=== PATIENT | female | born 1985 | race Caucasian/White ===

== ENCOUNTER 2017-02-09 18:57 | Inpatient (IN) | payer MEDICAID ==
[~2017-02-09] VITALS: Ht 167.6 cm; Wt 54.9 kg
[2017-02-09 19:06] VITALS: BP 103/63
--- NOTE | 2017-02-09 19:10 | NUR ---
31/F BIBA C/O DYSPNEA X 2DAYS AND ALOC AT HOME X 2 HOURS AGO. PER EMS, BS READ HI X2 ON THE FIELD. ACCUCHECK DONE TOO HIGH TO READ, ER MD CANELA MADE AWARE. PT PRESENT WITH KUSSMAULS RESPIRATION, SHALLOW AND LABORED 24RR, SATS 100% ON 4LPMNC, ALL LUNG SOUNDS CLEAR CBTA. 106 SINUS TACHY, EKG DONE. PT UNABLE TO COMMUNICATE, AROUSAL AND EYE OPENING ON PAIN STIMULI. PT PLACED ON BEDSIDE MONITOR AND PULSE OX. UNABLE TO GET FULL HISTORY AT THIS TIME PMH: DIABETES
[2017-02-09] MEDS ORDERED: NACL 0.9% 2,000 ML IV SCH (20:02)
[2017-02-09] MEDS ORDERED: INSULIN HUMAN REGULAR 100 UNITS in NACL 0.9% 100 ML IV ONE (20:35)
[2017-02-09] MEDS ORDERED: SODIUM BICARBONATE 8.4% PFS 50 MEQ/50 ML SYR IVP ONE (20:35)
[2017-02-09 20:41] LABS: BASOPHILS # (AUTO) 0.1 K/uL (0.00-0.22); BASOPHILS % (AUTO) 0.5 % (0.0-2.0); EOSINOPHILS % (AUTO) 0.1 % (0.0-4.0); HEMATOCRIT 39.5 % (36-48); HEMOGLOBIN 12.8 g/dL (12.0-16.0); LYMPHOCYTES # (AUTO) 0.5 K/uL (2.5-16.5); LYMPHOCYTES % (AUTO) 4.5 % (20.5-51.1); MEAN CORPUSCULAR HEMOGLOBIN 32 pg (27-31); MEAN CORPUSCULAR HGB CONC 32 g/dL (33-37); MEAN CORPUSCULAR VOLUME 97 fL (80-94); MONOCYTES % (AUTO) 7.9 % (1.7-9.3); NEUTROPHILS # (AUTO) 10.6 K/uL (1.8-7.7); PLATELET COUNT (AUTO) 183 K/uL (140-450); RED BLOOD CELL COUNT(AUTO) 4.06 MIL/uL (4.20-5.40); RED CELL DISTRIBUTION WIDTH 13.6 % (11.6-13.7); WHITE BLOOD COUNT (AUTO) 12.2 K/uL (4.8-10.8)
[2017-02-09 20:44] LABS: APPEARANCE,URINE CLEAR (CLEAR); BILIRUBIN,URINE NEGATIVE (NEGATIVE); BLOOD, URINE TRACE-L (NEGATIVE); COLOR,URINE YELLOW (YELLOW); LEUKOCYTE ESTERASE ,URINE NEGATIVE (NEGATIVE); NITRITE, URINE NEGATIVE (NEGATIVE); UGLUCOSE 3+ (NEGATIVE)
[2017-02-09 20:50] LABS: RBC,URINE 3-10 (FEW) /HPF (0-5); WBC,URINE 0-5 (RARE) /HPF (0-5)
[2017-02-09 21:01] LABS: ALBUMIN 2.5 g/dL (3.4-5.0); CREATININE 1.2 mg/dL (0.6-1.3); POTASSIUM 4.7 mmol/L (3.5-5.1); TOTAL BILIRUBIN 0.4 mg/dL (0.0-1.0)
[2017-02-09 21:04] LABS: PROTHROMBIN TIME 10.3 secs (10.8-13.4)
[2017-02-09] MEDS ORDERED: INSU100I7 SQ (21:04)
[2017-02-09] MEDS ORDERED: [UNRECOGNIZED DRUG - CODE] PO (21:04)
--- NOTE | 2017-02-09 21:26 | NUR ---
PT STILL NOTED WITH KUSSMAULS RESPIRATIONS, ON 4LPMNC SATS 100%, 96HR. ER MD CANELA MADE AWARE. PT MADE COMFORTBLE, STILL WOULD NOT VERBALLY RESPOND TO QUESTIONS. NO S/SX OF PAIN AT THIS TIME. INSULIN DRIP STARTED,SEE RADU Addendum: 02/09/17 at 2132 by TANJA PER MD CANELA, ACCUCHECK EVERY HOUR AFTER STARTING INSULIN DRIP
[2017-02-09 21:28] LABS: CARBON DIOXIDE 4.7 mmol/L (21-32)
[2017-02-09 21:31] LABS: ACETONE, SERUM SMALL (NEGATIVE)
[2017-02-09] MEDS ORDERED: ONDANSETRON 4 MG/2 ML VIAL IVP PRN (21:50)
[2017-02-09] MEDS ORDERED: HYDROcodone/APAP 7.5/325 MG 1 TAB PO PRN (21:50)
[2017-02-09] MEDS ORDERED: NACL 0.9% 1,000 ML IV SCH ×2 (21:50→22:00)
[2017-02-09] MEDS ORDERED: DEXTROSE 50% 50 ML SYR IVP PRN (22:00)
[2017-02-09] MEDS ORDERED: INSULIN HUMAN REGULAR 100 UNITS in NACL 0.9% 100 ML IV SCH (22:15)
--- NOTE | 2017-02-09 22:15 | NUR ---
APatient will be admitted to care of JONATAN. Admited to ICU. Will go to BED 5. Belongings list completed. BEDSIDE Report to CLARIZE RN. INSULIN DRIP INFUSING AT 5UNITS/HR PER PROTOCOL UPON TRANSFER, PT STABLE TO TRANSFER TO ICU. TRASPORTED VIA GURNEY WITH TOOLING ENGINEERING TECH AND PULSE OX
--- NOTE | 2017-02-09 22:30 | NUR ---
RECEIVED REPORT FROM ER NURSE EMILIE, ACCOMPANIED BY RN AND EMT VIA YULIA. ATTACHED TO O2 @ 3LPM VIA NASAL CANNULA, PT IS DROWSY. IV AT LEFT HAND 18G , INFUSING WELL. ON INSULIN DRIP. BED IN LOW POSITION, SAFETY MEASURE ENSURE. REDNESS NOTED AT PERINEAL AND TANYA RECTAL AREA. WILL CONTINUE TO MONITOR.
[2017-02-09 22:33] VITALS: BP 60/41
[2017-02-09] MEDS ORDERED: HYDRAGUARD CREAM TP SCH (22:45)
[2017-02-09] MEDS: BLOOD GLUCOSE MONITORING 1 DEV DEV FS SCH ×2 (22:46→22:56)
[2017-02-09] MEDS ORDERED: LORazepam 1 MG TAB PO PRN (22:55)
[2017-02-09] MEDS ORDERED: DIAZEPAM PFS 10 MG/2 ML SYR IVP SCH (23:00)
[2017-02-09] MEDS ORDERED: ALBUTEROL SULFATE/IPRATROPIU 3 ML SOL IH PRN (23:20)
[2017-02-09 23:21] VITALS: BP 100/54
[2017-02-09 23:25] VITALS: BP 97/63
[2017-02-09] MEDS ORDERED: DIAZEPAM PFS 10 MG/2 ML SYR ONE (23:36)
[2017-02-09 23:37] LABS: BARBITURATE, URINE NEG. ng/ml (NEG <=200); BENZODIAZEPINE, URINE NEG. ng/mL (NEG <=200); CANNABINOID, URINE NEG. ng/mL (NEG <=50); COCAINE, URINE NEG. ng/mL (NEG <=300); OPIATE, URINE NEG. ng/mL (NEG <=2000); PHENCYCLIDINE SCREEN,URINE NEG. ng/mL (NEG <=25)
[2017-02-09 23:45] LABS: CHOL/HDL RATIO 8.3 (1-4.5); FREE T4 (FREE THYROXINE) 0.81 ng/dL (0.76-1.46); THYROID STIMULATING HORMONE 2.97 uIU/mL (0.34-3.74)
--- NOTE | 2017-02-09 23:45 | NUR ---
DR. MARCELINO AT BEDSIDE WITH DR. VEGA. [facility] AT BEDSIDE. PT FOR CENTRAL LINE INSERTION. CONSENT SIGNED.
--- NOTE | 2017-02-09 23:54 | NUR ---
2300 PT HAVING SHORTNESS OF BREATH AND PLACED PT ON BIPAP 12/6 RR 14 30%. LOWERED BIPAP TO IPAP 8 EPAP 4 RR 12 DUE TO HIGH TIDAL VOLUMES. PT SEEMS LESS SOB.
--- NOTE | 2017-02-09 23:55 | NUR ---
ONGOING CENTRAL LINE INSERTION BY DR. MARCELINO. PT ON STILL ON BIPAP.
[2017-02-10] VITALS (13 sets, daily range): BP systolic 82–140; BP diastolic 47–69
--- NOTE | 2017-02-10 00:30 | NUR ---
CENTRAL LINE PLACEMENT WAS UNSUCCESSFUL. PT ON STABLE CONDITION. WILL CONTINUE TO MONITOR.
--- NOTE | 2017-02-10 00:30 | NUR ---
CENTRAL LINE INSERTION WAS UNSUCCESSFUL. HEPARIN FLUSH NOT GIVEN. WASTED.
[2017-02-10] MEDS: BLOOD GLUCOSE MONITORING 1 DEV DEV FS SCH ×24 (00:40→23:20)
--- NOTE | 2017-02-10 00:45 | NUR ---
ABG DRAWN AT [address] PERKINS (RESIDENT) WITH HCO3 4.8, NO NEW ORDER GIVEN.
[2017-02-10] MEDS ORDERED: NACL 0.9% 1,000 ML IV ONE (01:10)
[2017-02-10 01:11] LABS: MAGNESIUM 1.8 mg/dL (1.8-2.4); PHOSPHORUS 3.1 mg/dL (2.5-4.9)
[2017-02-10 01:14] LABS: ANION GAP 28.1 (8-16); CREATININE 0.9 mg/dL (0.6-1.3); POTASSIUM 3.6 mmol/L (3.5-5.1)
[2017-02-10 01:15] LABS: CARBON DIOXIDE 7.5 mmol/L (21-32)
[2017-02-10] MEDS ORDERED: MECLIZINE 25 MG TAB PO PRN (02:10)
--- NOTE | 2017-02-10 02:40 | NUR ---
RN TOOK PATIENT OF BIPAP AND PLACED PT ON 2LNC. SATS 100%.
--- NOTE | 2017-02-10 03:00 | NUR ---
PT IS MORE ALERT AND AWAKE AT THIS TIME. DR. MARCELINO AT BEDSIDE WITH THE PATIENT. NO LONGER ON BIPAP. O2 @ 2LPM VIA NASAL CANNULA. WILL CONTINUE TO MONITOR.
--- NOTE | 2017-02-10 05:00 | NUR ---
PT TAKEN TO CT SCAN WITH FIELD CREW CHIEF ACCOMPANIED BY RNS AND CUSTOMER SERVICE TECHNICIAN. PT ON STABLE CONDITION.
--- NOTE | 2017-02-10 05:15 | NUR ---
DR. MARCELINO AWARE OF ABG RESULT. NO ORDERS MADE
[2017-02-10 05:25] LABS: BASOPHILS # (AUTO) 0.1 K/uL (0.00-0.22); BASOPHILS % (AUTO) 0.8 % (0.0-2.0); EOSINOPHILS # (AUTO) 0.1 K/uL (0-0.4); EOSINOPHILS % (AUTO) 0.8 % (0.0-4.0); HEMATOCRIT 34.9 % (36-48); HEMOGLOBIN 11.9 g/dL (12.0-16.0); LYMPHOCYTES # (AUTO) 0.7 K/uL (2.5-16.5); LYMPHOCYTES % (AUTO) 6.2 % (20.5-51.1); MEAN CORPUSCULAR HEMOGLOBIN 32 pg (27-31); MEAN CORPUSCULAR HGB CONC 34 g/dL (33-37); MEAN CORPUSCULAR VOLUME 93 fL (80-94); MONOCYTES # (AUTO) 0.6 K/uL (0.8-1.0); MONOCYTES % (AUTO) 5.3 % (1.7-9.3); NEUTROPHILS # (AUTO) 9.2 K/uL (1.8-7.7); NEUTROPHILS % (AUTO) 86.9 % (42.2-75.2); PLATELET COUNT (AUTO) 198 K/uL (140-450); RED BLOOD CELL COUNT(AUTO) 3.75 MIL/uL (4.20-5.40)
[2017-02-10] MEDS: DEXT 5% / NACL 0.45% 1,000 ML IV SCH ×3 (05:33→20:21)
--- NOTE | 2017-02-10 05:36 | NUR ---
RECEIVED CT HEAD RESULT VIA FAX, NO ACUTE INTRACRANIAL HEMORRHAGE/ABNORMALITY EVIDENT. DR. PERKINS (RESIDENT) HERE IN THE UNIT AND AWARE OF THE RESULT.
[2017-02-10] MEDS ORDERED: LORazepam 1 MG TAB PO PRN ×2 (05:40→07:44)
[2017-02-10] MEDS: ALBUTEROL SULFATE/IPRATROPIU 3 ML SOL IH SCH ×3 (06:41→18:45)
--- NOTE | 2017-02-10 06:44 | NUR ---
D5 1/2 NS DECREASE TO 100ML/HR. DR. TOLEDO AWARE OF BSL. WILL CONTINUE TO MONITOR.
[2017-02-10 06:53] LABS: WHITE BLOOD COUNT (AUTO) 10.7 K/uL (4.8-10.8)
--- NOTE | 2017-02-10 07:15 | NUR ---
REPORT GIVEN TO BERNARDO BEDOYA FOR CONTINUITY OF CARE. PT ON STABLE CONDITION.
--- NOTE | 2017-02-10 07:20 | NUR ---
REPORT RECEIVED FROM NIGHT NURSE. PT IS AWAKE AND ALERT, ORIENTED X 4. SINUS TACHY ON MONITOR. PT IS ON ROOM AIR, O2 SAT 98%, BILATERAL LUNGS CLEAR. NO SOB NOTED. ABDOMEN SOFT, NONDISTENDED, NONTENDER. BOWEL SOUNDS PRESENT. PERIPHERAL IV G18 TO LEFT WRIST PATENT AND INTACT, INFUSING ORDERED IV FLUID AND INSULIN DRIP AT 2 UNIT/HR. RUTLEDGE CATH IN PLACE DRAINING URINE TO GRAVITY DRAINAGE BAG. REDNESS NOTED IN PERINEAL AND TANYA RECTAL AREA. BED IN LOWEST POSITION AND CALL LIGHT WITHIN REACH. NEEDS WELL ATTENDED. WILL CONTINUE TO MONITOR.
[2017-02-10 07:27] LABS: CARBON DIOXIDE 12.4 mmol/L (21-32); CREATININE 0.7 mg/dL (0.6-1.3); MAGNESIUM 1.6 mg/dL (1.8-2.4); PHOSPHORUS 1.6 mg/dL (2.5-4.9); POTASSIUM 3.4 mmol/L (3.5-5.1)
--- NOTE | 2017-02-10 07:30 | NUR ---
DR. AGUIRRE AND RESIDENT GROUP IN TO SEE PT. WILL FOLLOW UP ON ORDERS. Addendum: 02/10/17 at 1500 by Alejo Miranda RN DR. TOLEDO
--- NOTE | 2017-02-10 07:31 | NUR ---
PER DR. TOLEDO, OK TO GIVE ICE CHIPS ALTHOUGH PT IS NPO EXCEPT MEDS.
[2017-02-10 07:57] LABS: BASOPHILS # (AUTO) 0.1 K/uL (0.00-0.22); EOSINOPHILS % (AUTO) 0.1 % (0.0-4.0); HEMOGLOBIN 12.4 g/dL (12.0-16.0); LYMPHOCYTES # (AUTO) 0.6 K/uL (2.5-16.5); LYMPHOCYTES % (AUTO) 5.8 % (20.5-51.1); MEAN CORPUSCULAR HEMOGLOBIN 31 pg (27-31); MEAN CORPUSCULAR HGB CONC 34 g/dL (33-37); MEAN CORPUSCULAR VOLUME 93 fL (80-94); MONOCYTES # (AUTO) 0.8 K/uL (0.8-1.0); MONOCYTES % (AUTO) 8.2 % (1.7-9.3); NEUTROPHILS # (AUTO) 8.4 K/uL (1.8-7.7); NEUTROPHILS % (AUTO) 84.9 % (42.2-75.2); PLATELET COUNT (AUTO) 187 K/uL (140-450); RED BLOOD CELL COUNT(AUTO) 3.96 MIL/uL (4.20-5.40); RED CELL DISTRIBUTION WIDTH 12.6 % (11.6-13.7); WHITE BLOOD COUNT (AUTO) 9.9 K/uL (4.8-10.8)
[2017-02-10] MEDS: NACL 0.9% 1,000 ML IV SCH ×3 (08:00→19:33)
[2017-02-10] MEDS ORDERED: HYDRAGUARD CREAM TP SCH (08:00)
[2017-02-10 08:12] LABS: MAGNESIUM 1.6 mg/dL (1.8-2.4); PHOSPHORUS 1.3 mg/dL (2.5-4.9)
[2017-02-10 08:13] LABS: ANION GAP 17.2 (8-16); CREATININE 0.8 mg/dL (0.6-1.3); POTASSIUM 3.2 mmol/L (3.5-5.1)
[2017-02-10] MEDS ORDERED: PANTOPRAZOLE 40 MG INJ VIAL IVP SCH (09:00)
[2017-02-10] MEDS: ECOTRIN 81 MG TABEC PO SCH (09:09)
[2017-02-10] MEDS: DOCUSATE SODIUM 100 MG GELCAP PO SCH ×2 (09:09→20:21)
[2017-02-10] MEDS: ATORVASTATIN 20 MG TAB PO SCH (09:09)
--- NOTE | 2017-02-10 09:20 | NUR ---
MEDICATIONS ADMINISTERED. PT TOLERATED WELL.
--- NOTE | 2017-02-10 09:53 | NUR ---
PATIENT HAS BEEN SCREENED AND CATEGORIZED HIGH NUTRITION RISK. PATIENT WILL BE SEEN WITHIN 1-2 DAYS OF ADMISSION. 02/10/17-02/11/[address]
--- NOTE | 2017-02-10 11:10 | NUR ---
DR. MÁRQUEZ MADE AWARE OF K =3.2, CA= 7.2, MG = 1.6, PO4 = 1.3. WILL FOLLOW UP ON ORDERS. Addendum: 02/10/17 at 1203 by Alejo Miranda RN DR. PASTRANA
[2017-02-10] MEDS: ACETAMINOPHEN 325 MG TAB PO PRN (13:52)
--- NOTE | 2017-02-10 13:59 | NUR ---
TEMP 100.4. HR 123. DR. PASTRANA MADE AWARE. ADMINISTERED TYLENOL ORDERED. WILL CONTINUE TO MONITOR.
--- NOTE | 2017-02-10 14:32 | NUR ---
02/10/17 RD INITIAL ASSESSMENT COMPLETED PLEASE REFER TO NUTRITION ASSESSMENT UNDER CARE ACTIVITY FOR ESTIMATED NUTRITIONAL NEEDS. 1. CONTINUE NPO MEDICALLY NECESSARY PER MD 2. WHEN MEDICALLY APPROPRIATE ADVANCE DIET TO [facility] [place] [address] PROVIDED PT WITH DM DIET EDUCATION 4. RD TO FOLLOW-UP 3-5 DAYS, MODERATE RISK SWATHI ELIZALDE RD
--- NOTE | 2017-02-10 14:44 | NUR ---
RECHECKED TEMP. STILL 100.4. COOLING MEASURES IN PLACE. NO S/SX OF ACUTE DISTRESS. WILL CONTINUE TO MONITOR.
--- NOTE | 2017-02-10 16:10 | NUR ---
SPOKE WITH FRAN FROM [facility]. SHE SAID THE REVIEW JUST GO TO HER. FAXED INITIAL REVIEW TO [facility] AT [phone] PHONE [phone]
[2017-02-10] MEDS ORDERED: MAG SULF 2000 MG/WATER PREMIX 100 ML IV SCH (16:15)
[2017-02-10] MEDS ORDERED: POTASSIUM PHOSPHATE 15 MM in NACL 0.9% 250 ML IV SCH (16:15)
--- NOTE | 2017-02-10 16:16 | NUR ---
PT'S TEMP 101F. HR 117, BP 93/52. DR. PASTRANA MADE AWARE. WILL FOLLOW UP ON ORDERS.
[2017-02-10] MEDS ORDERED: KETOROLAC 30 MG/ML VIAL IVP PRN (16:20)
--- NOTE | 2017-02-10 16:42 | NUR ---
TEMP 101.0F. PRN TORADOL GIVEN ORDERED. WILL CONTINUE TO MONITOR.
[2017-02-10 17:39] LABS: ANION GAP 11.3 (8-16); CARBON DIOXIDE 19.6 mmol/L (21-32); CREATININE 0.8 mg/dL (0.6-1.3)
--- NOTE | 2017-02-10 17:43 | NUR ---
PT IS SLEEPING COMFORTABLY. TEMP 100.5. COOLING MEASURES IN PLACE. NO S/SX OF DISTRESS OT DISCOMFORT NOTED. WILL CONTINUE TO MONITOR.
--- NOTE | 2017-02-10 17:47 | NUR ---
LEFT A MESSAGE TO PT'S SIGNIFICANT OTHER, JEANA CROWELL. AWAITING CALL BACK.
[2017-02-10 17:48] LABS: POTASSIUM 2.9 mmol/L (3.5-5.1)
[2017-02-10 17:49] LABS: MAGNESIUM 1.4 mg/dL (1.8-2.4); PHOSPHORUS 1.3 mg/dL (2.5-4.9)
[2017-02-10] MEDS: PIPER/TAZO 3.375GM/D5W PREMIX 50 ML IV SCH (18:16)
--- NOTE | 2017-02-10 18:41 | NUR ---
DR. SAAVEDRA MADE AWARE OF PT'S LOW BP. PT IS ASLEEP. NO SIGNS OF ACUTE DISTRESS. WILL FOLLOW UP ON ORDERS AND CONTINUE TO MONITOR.
[2017-02-10] MEDS ORDERED: POTASSIUM CHLORIDE 40 MEQ, LIDOCAINE 1% 25 MG in NACL 0.9% 250 ML IV SCH (19:00)
--- NOTE | 2017-02-10 19:30 | NUR ---
REPORT GIVEN TO NIGHT NURSE FOR CONTINUITY OF CARE. PT IS ASLEEP. NO SOB OR S/SX OF ACUTE DISTRESS.
--- NOTE | 2017-02-10 19:30 | NUR ---
RECEIVED REPORT FROM AM SHIFT. PT IS SLEEPING EASY TO AWAKE. PT IS ALERT ORIENTED X3 WHEN AWAKE.ON ROOM AIR,NO S/S OF RESP.DISTRESS,NO SOB. HOB UP 30-45 DEGREE. SPO2 100%. SKIN WATM TO TOUCH. DENIES ANY PAIN AT THIS TIME.SOY LUNGS SOUND CLEAR. IV TOLEFT HANDS NO 18GAUGE AND RFA NO 22. MAGNESIUM AND POTASSIUM STILL RUNNING ORDER. CONT ON INSULIN DRIPS PROTOCOL AT 2 UNITS/HR. CONT ON IVF D5 IN 1/2 NS AT 100 CC/HR AND NS AT 100 CC/HR TOLERATING WELL. CONT ON IV ABT ORDER.NPO EXCEPT MEDS. ABD FLAT,SOFT NON DISTENDED.ACTIVE BOWEL SOUNDS TO ALL QUADRANTS.REDNESS TO PERINEAL AND PERIANAL AREA. KEPT AREA CLEAN AND DRY. GOOD PERIANAL AND PERINEAL CARE GIVEN. F/C IN PLACE WITH YELLOW CLEAR COLOR NOTED.GENTLE CARE GIVEN. KEPT PT CLEAN AND DRY. CALL LIGHT IN REACH. BED IN LOW POSITIONS.
--- NOTE | 2017-02-10 19:45 | NUR ---
DR. MOSHE SAAVEDRA COME TO SEE PT AND AWARE WITH LOW BP.NO NEW ORDER.
--- NOTE | 2017-02-10 20:15 | NUR ---
BLOOD SUGAR IS 216 CONTINUE ON 2 UNITS PER HOUR OF INSULIN PROTOCOL. BLOOD DRAWN NO RESULT YET.
[2017-02-10 21:01] LABS: MAGNESIUM 2.1 mg/dL (1.8-2.4); PHOSPHORUS 1.6 mg/dL (2.5-4.9)
[2017-02-10 21:06] LABS: ANION GAP 15.9 (8-16); CARBON DIOXIDE 18.2 mmol/L (21-32); CREATININE 0.9 mg/dL (0.6-1.3); POTASSIUM 3.1 mmol/L (3.5-5.1)
--- NOTE | 2017-02-10 21:22 | NUR ---
BLOOD SUGAR IS 218.CONTINUE SAME DOSE OF INSULIN. RESIDENT REQUEST ICE CHIPS AND TOLERATED WELL.
--- NOTE | 2017-02-10 22:18 | NUR ---
BLOOD SUGAR 191 DECREASE INSULIN TO 1 UNIT/HR PER PROTOCOL.PT REQUESTED TO HAVE BED BATH. BED BATH WAS GIVEN, PT ABLE TO HELP CLEAN HER SELF. KEPT CLEAN AND DRY. CALL LIGHT IN REACH.
--- NOTE | 2017-02-10 23:23 | NUR ---
BLOOD SUGAR IS 275 INCREASED INSULIN TO 3 UNITS/HR CONTINUE TO MONITOR CLOSELY.
[2017-02-11] VITALS (9 sets, daily range): BP systolic 93–127; BP diastolic 58–90
[2017-02-11] MEDS: BLOOD GLUCOSE MONITORING 1 DEV DEV FS SCH ×10 (00:20→20:30)
--- NOTE | 2017-02-11 00:20 | NUR ---
PT SLEEPING AT THIS TIME,NO S/S RESP DISTRESS,NO SOB. BLOOD SUGAR IS 259 CONTINUE ON 3 UNITS/HR OF INSULIN,
[2017-02-11] MEDS: PIPER/TAZO 3.375GM/D5W PREMIX 50 ML IV SCH ×5 (00:23→23:44)
[2017-02-11 01:19] LABS: MAGNESIUM 2.5 mg/dL (1.8-2.4); PHOSPHORUS 1.6 mg/dL (2.5-4.9)
[2017-02-11 01:27] LABS: POTASSIUM 3.4 mmol/L (3.5-5.1)
[2017-02-11 01:28] LABS: ANION GAP 14.4 (8-16); CREATININE 0.7 mg/dL (0.6-1.3)
--- NOTE | 2017-02-11 01:53 | NUR ---
DR MOSHE SAAVEDRA MADE AWARE THE LAB RESULT AT 2000 AND AT 0000.PER MD WILL SEE FOR THE ADJUSTMENT.
[2017-02-11] MEDS ORDERED: DEXT 5% / NACL 0.45% 1,000 ML IV SCH (02:30)
[2017-02-11] MEDS ORDERED: POTASSIUM CHLORIDE 10 MEQ TABER PO ONE (02:40)
--- NOTE | 2017-02-11 04:20 | NUR ---
K LEVEL 3.4,NEW ORDER KCL 40 MEQ PO. MED GIVEN PO AND MCKAYLA WELL.
--- NOTE | 2017-02-11 05:00 | NUR ---
AM CAR GIVEN. KEPT CLEAN AND DRY.DENIES ANY PAIN AT THIS TIME.
[2017-02-11] MEDS: NACL 0.9% 1,000 ML IV SCH ×2 (05:32→17:23)
--- NOTE | 2017-02-11 05:52 | NUR ---
DR NICOLE COME TO SEE PT. PLANNING TO TRANSFER PT TO [facility] FLOOR TODAY. WILL ENDORESED TO AM SHIFT TO FOLLOW UP.
[2017-02-11 06:15] LABS: CARBON DIOXIDE 20.6 mmol/L (21-32); CREATININE 0.6 mg/dL (0.6-1.3); POTASSIUM 3.6 mmol/L (3.5-5.1)
[2017-02-11 06:18] LABS: MAGNESIUM 2.5 mg/dL (1.8-2.4); PHOSPHORUS 1.4 mg/dL (2.5-4.9)
--- NOTE | 2017-02-11 06:20 | NUR ---
BLOOD SUGAR 225 CONTINUE ON REGULAR INSULIN DRIPS ORDER.
--- NOTE | 2017-02-11 06:28 | NUR ---
PER TO D/C DEX 5 IN 1/2 NS,AND CONTINUE DRIPS UNTIL 2 MORE HOURS, PT START EATING TODAY.HUMALOG TO BE GIVEN AT 7 UNITS AT 7:30 AM.PT MADE AWARE.
[2017-02-11] MEDS ORDERED: POTASSIUM CHLORIDE 10 MEQ TABER PO SCH (07:00)
[2017-02-11] MEDS: ALBUTEROL SULFATE/IPRATROPIU 3 ML SOL IH SCH ×3 (07:00→20:02)
--- NOTE | 2017-02-11 07:13 | NUR ---
pt sleeping with no signs of distress noted at this time no hhn given at this time
--- NOTE | 2017-02-11 07:15 | NUR ---
REPORT GIVEN TO ELKE CHANG. PT IS SLEEPING.NO S/S OF PAIN OR DISCOMFORT.
--- NOTE | 2017-02-11 07:25 | NUR ---
REPORT RECEIVED FROM NIGHT NURSE. PT IS AWAKE, AAOX4. ABLE TO MAKE NEEDS KNOWN. ST ON MONITOR. ON ROOM AIR, BILATERAL LUNGS CLEAR. PERIPHERAL IVS TO RIGHT FOREARM AND LEFT HAND PATENT AND INTACT. ABDOMEN SOFT, NONTENDER, NON DISTENDED. RUTLEDGE CATH IN PLACE DRAINING URINE TO GRAVITY DRAINAGE BAG. SCDS IN PLACE FOR VTE PROPHYLAXIS. HOB 30 DEGREES, BED IN LOW POSITION, CALL LIGHT WITHIN REACH. NEEDS WELL ATTENDED. WILL CONTINUE TO MONITOR.
[2017-02-11] MEDS: INSULIN LISPRO 100 UNITS/ML VIAL SUBQ SCH ×2 (07:36→11:56)
[2017-02-11] MEDS ORDERED: SODIUM PHOS / POTASSIUM PHOS 1 PKT PDR PO SCH (09:00)
[2017-02-11 09:08] LABS: ANION GAP 13.6 (8-16); CARBON DIOXIDE 15.8 mmol/L (21-32); CREATININE 0.6 mg/dL (0.6-1.3); POTASSIUM 3.4 mmol/L (3.5-5.1)
[2017-02-11 09:12] LABS: MAGNESIUM 2.4 mg/dL (1.8-2.4); PHOSPHORUS 1.1 mg/dL (2.5-4.9)
[2017-02-11] MEDS: DOCUSATE SODIUM 100 MG GELCAP PO SCH ×2 (09:20→20:36)
[2017-02-11] MEDS: ATORVASTATIN 20 MG TAB PO SCH (09:20)
[2017-02-11] MEDS: ECOTRIN 81 MG TABEC PO SCH (09:20)
--- NOTE | 2017-02-11 09:20 | NUR ---
MEDICATIONS ADMINISTERED. PT TOLERATED WELL.
[2017-02-11] MEDS: LACTOBACILLUS RHAMNOSUS GG 1 EACH CAP PO SCH (09:21)
[2017-02-11] MEDS: SODIUM PHOS / POTASSIUM PHOS 1 PKT PDR PO SCH ×3 (09:21→17:23)
[2017-02-11] MEDS: INSULIN DETEMIR 100 UNITS/ML 10 ML VIAL SUBQ SCH (09:25)
--- NOTE | 2017-02-11 11:40 | NUR ---
BLOOD SUGAR 132. DR. PASTRANA MADE AWARE. PER DR. PASTRANA, GIVE HUMALOG ORDERED.
--- NOTE | 2017-02-11 12:00 | NUR ---
DR. TOLEDO AND RESIDENT GROUP IN TO SEE PT. WILL FOLLOW UP ON ORDERS.
[2017-02-11] MEDS: ACETAMINOPHEN 325 MG TAB PO PRN (12:07)
--- NOTE | 2017-02-11 12:09 | NUR ---
TEMP 100.4. TYLENOL GIVEN ORDERED. WILL CONTINUE TO MONITOR.
--- NOTE | 2017-02-11 14:00 | NUR ---
PATIENT RECEIVED FROM ICU. PATIENT AWAKE, ALERT AND ORIENTED. NO S/S OF DISTRESS NOTED. PATIENT ON ROOM AIR NO SOB. RUTLEDGE CATHETER IN PLACE, DRAINING CLEAR YELLOW URINE. PATIENT ON TELE MONITORING. BED LOWERED WITH CALL LIGHT WITHIN REACH. WILL CONTINUE TO MONITOR. TEMP 99.6 BP: 95/55 HR: 108 O2 SAT: 100% ON ROOM AIR
--- NOTE | 2017-02-11 14:00 | NUR ---
PT TRANSFERRED TO TELEMETRY. GAVE REPORT TO BERNARDO RIVERA AT BEDSIDE. PT IS IN STABLE CONDITION.
--- NOTE | 2017-02-11 15:43 | NUR ---
PATIENT ASLEEP IN BED. NO S/S OF DISTRESS NOTED
[2017-02-11] MEDS ORDERED: POTASSIUM PHOSPHATE 15 MM in NACL 0.9% 250 ML IV SCH (16:35)
--- NOTE | 2017-02-11 18:28 | NUR ---
RUTLEDGE CATHETER DISCONTINUED
--- NOTE | 2017-02-11 19:26 | NUR ---
PATIENT REPORT GIVEN AT BEDSIDE. PATIENT ENDORSED IN STABLE CONDITION
--- NOTE | 2017-02-11 19:30 | NUR ---
RECEIVED PT FROM NICOLE CHANG PT IS AAOX4 AMBULATORY IV ON LEFT HAND INFUSING WELL ON TELEMETRY SR DENIES ANY PAINI OR DISCOMFORT INITIAL ASSESSMENT DONE
[2017-02-11] MEDS: INSULIN LISPRO SLIDING SCALE 100 UNITS/ML VIAL SUBQ PRN (20:30)
[2017-02-11] MEDS ORDERED: INSULIN DETEMIR 100 UNITS/ML 10 ML VIAL SUBQ SCH (21:00)
--- NOTE | 2017-02-11 21:00 | NUR ---
BLODD SUGAR TEST 188 COVERAGE WITH 2 UNITS HUMALOG FOLLOWING PROTOCOL
[2017-02-12] VITALS: BP 101/65
--- NOTE | 2017-02-12 | NUR ---
PT HAS BEEN MONITORIN CLOSE ASSISTING ON HER ADLS NOT DISTRESS NOTED ON TELEMETRY SR PT IS AMBULATORY
[2017-02-12 04:00] VITALS: BP 102/60
--- NOTE | 2017-02-12 04:00 | NUR ---
SPONGE BATH GIVEN LINEN CHANGED PT REMAIN STBLE NOT DISTRESS NOTED
[2017-02-12] MEDS: NACL 0.9% 1,000 ML IV SCH (04:48)
[2017-02-12] MEDS: PIPER/TAZO 3.375GM/D5W PREMIX 50 ML IV SCH ×2 (05:36→11:57)
[2017-02-12] MEDS: BLOOD GLUCOSE MONITORING 1 DEV DEV FS SCH ×2 (06:04→12:05)
[2017-02-12] MEDS: INSULIN LISPRO SLIDING SCALE 100 UNITS/ML VIAL SUBQ PRN ×2 (06:06→12:08)
--- NOTE | 2017-02-12 06:48 | NUR ---
BLOOD SUGAR TEST 302 COVERAGE WITH 8 UNITS SUB Q HUMALOG PROTOCOL
[2017-02-12] MEDS: ALBUTEROL SULFATE/IPRATROPIU 3 ML SOL IH SCH ×2 (06:53→13:50)
[2017-02-12 07:14] LABS: BASOPHILS # (AUTO) 0.1 K/uL (0.00-0.22); BASOPHILS % (AUTO) 1.9 % (0.0-2.0); HEMATOCRIT 29.2 % (36-48); LYMPHOCYTES # (AUTO) 0.5 K/uL (2.5-16.5); MEAN CORPUSCULAR HEMOGLOBIN 31 pg (27-31); MEAN CORPUSCULAR HGB CONC 34 g/dL (33-37); MEAN CORPUSCULAR VOLUME 91 fL (80-94); MONOCYTES # (AUTO) 0.3 K/uL (0.8-1.0); MONOCYTES % (AUTO) 9.2 % (1.7-9.3); NEUTROPHILS # (AUTO) 2.7 K/uL (1.8-7.7); NEUTROPHILS % (AUTO) 72.9 % (42.2-75.2); PLATELET COUNT (AUTO) 112 K/uL (140-450); RED BLOOD CELL COUNT(AUTO) 3.22 MIL/uL (4.20-5.40); RED CELL DISTRIBUTION WIDTH 13.1 % (11.6-13.7); WHITE BLOOD COUNT (AUTO) 3.6 K/uL (4.8-10.8)
--- NOTE | 2017-02-12 07:15 | NUR ---
ENDORSEMENT RECEIVED FROM YARD WORKER NURSE. PATIENT'S RESPIRATION EVEN, UNLABOR. PATIENT AWAKE, ALERT. SKIN DRY AND WARM. IV INFUSING WELL. CALL LIGHT WITHIN REACH. WILL CONTINUE TO MONITOR
[2017-02-12 07:40] LABS: MAGNESIUM 1.9 mg/dL (1.8-2.4); PHOSPHORUS 2.1 mg/dL (2.5-4.9)
[2017-02-12 07:47] LABS: ANION GAP 11.5 (8-16); CARBON DIOXIDE 20.9 mmol/L (21-32); POTASSIUM 3.4 mmol/L (3.5-5.1)
[2017-02-12 07:58] LABS: CREATININE 0.5 mg/dL (0.6-1.3)
[2017-02-12 08:00] VITALS: BP 96/70
[2017-02-12] MEDS: LACTOBACILLUS RHAMNOSUS GG 1 EACH CAP PO SCH (08:38)
[2017-02-12] MEDS: ECOTRIN 81 MG TABEC PO SCH (08:38)
[2017-02-12] MEDS: ATORVASTATIN 20 MG TAB PO SCH (08:38)
[2017-02-12] MEDS: DOCUSATE SODIUM 100 MG GELCAP PO SCH (08:38)
[2017-02-12] MEDS: INSULIN DETEMIR 100 UNITS/ML 10 ML VIAL SUBQ SCH (08:40)
--- NOTE | 2017-02-12 08:45 | NUR ---
DR. PASTRANA WAS MADE AWARE OF WBC 3.6 AND POTASSIUM 3.4
[2017-02-12] MEDS ORDERED: POTASSIUM CHLORIDE 10 MEQ TABER PO SCH (08:48)
--- NOTE | 2017-02-12 09:15 | NUR ---
PATIENT AWAKE, ALERT. RESPIRATION EVEN, UNLABOR. NO DISTRESS NOTED AT THIS TIME. DENIED PAIN. REQUESTED SHOWER. WILL NOTIFY DR. PASTRANA. CALL LIGHT WITHIN REACH. WILL CONTINUE TO MONITOR
--- NOTE | 2017-02-12 11:04 | NUR ---
PATIENT AMBULATES HERSELF TO THE SHOWER ROOM, STEADY GAIT.
[2017-02-12 12:00] VITALS: BP 91/63
--- NOTE | 2017-02-12 12:34 | NUR ---
PATIENT IS AWAKE, ALERT. RESPIRATION EVEN, UNLABOR. DENIED PAIN AT THIS TIME. FAMILY AT BEDSIDE. CALL LIGHT WITHIN REACH. WILL CONTINUE TO MONITOR
--- NOTE | 2017-02-12 13:01 | NUR ---
DR PASTRANA WAS MADE AWARE OF PERSISTENT TACHYCARDIA. OK TO DISCHARGE
--- NOTE | 2017-02-12 13:30 | NUR ---
DISCHARGE INSTRUCTION WAS GIVEN. PATIENT VERBALIZED UNDERSTANDING. IVS WERE REMOVED WITH CATHETER TIP INTACT. PATIENT TOLERATED WELL. ID BAND WAS REMOVED. FAMILY AT BEDSIDE. TRANSPORT COORDINATOR WAS REMOVED. PATIENT WAS ESCORTED OUT BY FAMILY AND STAFF.
--- NOTE | 2017-02-13 16:28 | NUR ---
RECEIVED CALL FROM VALENTINO AT [facility] AND HE REQUESTED THAT CLINICAL INFORMATION BE FAXED TO [phone].
== END 2017-02-12 13:30 | disposition home or self-care (01) | DRG 469 ==
LOC: MED 18:57 → MIC 21:56 → MTU 02-11 14:00
PROVIDERS: ADMIT Student in an Organized Health Care Education/Training Program; ATTEND Student in an Organized Health Care Education/Training Program
PROC: 5A09357 Assistance with Respiratory Ventilation, Less than 24 Consecutive Hours, Continuous Positive Airway Pressure (ICD-10-PCS; 2017-02-09)
PROC: 05HM33Z Insertion of Infusion Device into Right Internal Jugular Vein, Percutaneous Approach (ICD-10-PCS; principal; 2017-02-10)
PROC: B543ZZA Ultrasonography of Right Jugular Veins, Guidance (ICD-10-PCS; 2017-02-10)
PROC: 5A09357 Assistance with Respiratory Ventilation, Less than 24 Consecutive Hours, Continuous Positive Airway Pressure (ICD-10-PCS; 2017-02-10)
DX: N17.0 Acute kidney failure with tubular necrosis (principal); J96.00 Acute respiratory failure, unspecified whether with hypoxia or hypercapnia; E43 Unspecified severe protein-calorie malnutrition; E11.10 Type 2 diabetes mellitus with ketoacidosis without coma; D68.59 Other primary thrombophilia; E11.65 Type 2 diabetes mellitus with hyperglycemia; E87.1 Hypo-osmolality and hyponatremia; E86.0 Dehydration; E83.42 Hypomagnesemia; E83.39 Other disorders of phosphorus metabolism; G90.9 Disorder of the autonomic nervous system, unspecified; E78.5 Hyperlipidemia, unspecified; M62.50 Muscle wasting and atrophy, not elsewhere classified, unspecified site; F15.10 Other stimulant abuse, uncomplicated; E87.6 Hypokalemia; A09 Infectious gastroenteritis and colitis, unspecified; Z91.14 Patient's other noncompliance with medication regimen; Z68.1 Body mass index [BMI] 19.9 or less, adult; Z71.51 Drug abuse counseling and surveillance of drug abuser; Z79.899 Other long term (current) drug therapy
CPT/HCPCS: 36415; 36600; 70450; 71010; 80048; 80053; 80305; 81001; 81025; 82009; 82150; 82550; 82553; 82803; 82948; 83036; 83605; 83690; 83735; 83874; 83880; 84100; 84439; 84443; 84484; 85025; 85610; 85730; 87040; 87081; 87086; 93005; 93880; 93925; 93970; 94640; 94660; 96361; 96365; 96375; 99291; G0482; J1642; J1815; J1885; J2001; J2405; J2543; J3360; J3475; J3480; J7030; J7620; Q0092

== ENCOUNTER 2017-05-15 12:48 | Inpatient (IN) | payer MEDICAID ==
[~2017-05-15] VITALS: Ht 170.2 cm; Wt 81.6 kg
[2017-05-15] MEDS: INSULIN LANTUS 100 UNITS/ML 10 ML VIAL SUBQ SCH ×2 (01:00→21:40)
[~2017-05-15 12:48] MED LIST: HUMSLIDE SUBQ; INSU100I7 SQ; LACT10CA1 PO; LEVO750T2 PO
[2017-05-15 12:54] VITALS: BP 120/81
--- NOTE | 2017-05-15 12:54 | NUR ---
PT BIBA TO BED 12
--- NOTE | 2017-05-15 13:02 | NUR ---
PATIENT PRESENTS TO ED WITH LEFT LEG/FOOT SWELLING/PAIN X 1 WEEK, WORSENING THIS MORNING. STARTED WITH BLISTER, DENIES INJUTY. +DRAINAGE NOTED, TENDER TO TOUCH. PT DIABETIC, DENIES FEVERS/CHILLS. MED HX: DM, CHF; RX: LANTUS,HUMALOG; DENIES N/V/D; SKIN IS PINK/WARM/DRY; AAOX4 WITH EVEN AND STEADY GAIT; LUNGS CLEAR BL; HR EVEN AND REGULAR; PT DENIES ANY FEVER, CP, SOB, OR COUGH AT THIS TIME; PATIENT STATES PAIN OF 10/10 AT THIS TIME; VSS; PATIENT POSITIONED FOR COMFORT; HOB ELEVATED; BEDRAILS UP X2; BED DOWN. ER MD MADE AWARE OF PT STATUS.
[2017-05-15] MEDS ORDERED: NACL 0.9% 1,000 ML IV SCH (13:28)
[2017-05-15] MEDS ORDERED: VANCOMYCIN 1,000 MG in DEXTROSE 5% 250 ML IV ONE (13:30)
[2017-05-15] MEDS ORDERED: MORPHINE SULFATE 4 MG/ML SYR IVP ONE (13:30)
[2017-05-15] MEDS ORDERED: PROCHLORPERAZINE 10 MG/2 ML VIAL IVP ONE (13:30)
[2017-05-15] MEDS ORDERED: VANCOMYCIN 1,000 MG VIAL ONE (14:07)
[2017-05-15 14:28] LABS: HEMATOCRIT 30.1 % (36-48); MEAN CORPUSCULAR HEMOGLOBIN 28 pg (27-31); MEAN CORPUSCULAR HGB CONC 33 g/dL (33-37); MEAN CORPUSCULAR VOLUME 85 fL (80-94); PLATELET COUNT (AUTO) 316 K/uL (140-450); RED BLOOD CELL COUNT(AUTO) 3.56 MIL/uL (4.20-5.40); RED CELL DISTRIBUTION WIDTH 13.1 % (11.6-13.7); WHITE BLOOD COUNT (AUTO) 13.4 K/uL (4.8-10.8)
--- NOTE | 2017-05-15 14:49 | NUR ---
XRAY AT BEDSIDE
[2017-05-15 14:53] LABS: EOSINOPHILS % (MANUAL) 1 % (0-4); LYMPHOCYTES % (MANUAL) 8 % (20-46); MONOCYTES % (MANUAL) 10 % (5-12)
[2017-05-15 14:54] LABS: ANION GAP 12.7 (8-16); CARBON DIOXIDE 24.4 mmol/L (21-32); POTASSIUM 4.1 mmol/L (3.5-5.1)
[2017-05-15 14:56] LABS: CREATININE 0.8 mg/dL (0.6-1.3); TOTAL BILIRUBIN 0.4 mg/dL (0.0-1.0)
[2017-05-15 14:57] LABS: ALBUMIN 1.9 g/dL (3.4-5.0)
[2017-05-15 15:32] LABS: BILIRUBIN,URINE NEGATIVE (NEGATIVE); BLOOD, URINE 2+ (NEGATIVE); COLOR,URINE YELLOW (YELLOW); LEUKOCYTE ESTERASE ,URINE NEGATIVE (NEGATIVE); NITRITE, URINE POSITIVE (NEGATIVE); UGLUCOSE 3+ (NEGATIVE)
[2017-05-15 15:33] LABS: APPEARANCE,URINE HAZY (CLEAR)
[2017-05-15] MEDS ORDERED: NACL 0.9% 1,000 ML IV ONE ×2 (15:50→20:15)
[2017-05-15] MEDS ORDERED: INSULIN REGULAR, HUMAN 100 UNIT/ML VIAL SUBQ ONE (15:50)
[2017-05-15 16:00] LABS: RBC,URINE 0-5 (RARE) /HPF (0-5); WBC,URINE 0-5 (RARE) /HPF (0-5)
[2017-05-15] MEDS: NACL 0.9% 1,000 ML IV SCH ×2 (16:00→20:20)
[2017-05-15 16:01] LABS: PROTHROMBIN TIME 11.6 secs (10.8-13.4)
[2017-05-15] MEDS ORDERED: ACETAMINOPHEN 325 MG TAB PO PRN (16:20)
[2017-05-15] MEDS ORDERED: DEXTROSE 50% 50 ML SYR IVP PRN (16:20)
--- NOTE | 2017-05-15 16:40 | NUR ---
Ultrasound at bedside.
[2017-05-15 17:32] LABS: BARBITURATE, URINE NEG. ng/ml (NEG <=200); BENZODIAZEPINE, URINE NEG. ng/mL (NEG <=200); CANNABINOID, URINE NEG. ng/mL (NEG <=50); COCAINE, URINE NEG. ng/mL (NEG <=300); OPIATE, URINE NEG. ng/mL (NEG <=2000); PHENCYCLIDINE SCREEN,URINE NEG. ng/mL (NEG <=25)
--- NOTE | 2017-05-15 18:50 | NUR ---
Patient will be admitted to care of DR DRAKE. Admited to TELE. Will go to room 105B. Belongings list completed. Report to BERNARDO BOYCE
[2017-05-15 19:19] LABS: AMYLASE 12 U/L (25-115); LIPASE 61 U/L (73-393)
--- NOTE | 2017-05-15 19:33 | NUR ---
ENDORSEMENT GIVEN TO THE FILAMENT WOUND PARTS FABRICATOR NURSE. PATIENT IS STABLE AT THIS TIME
--- NOTE | 2017-05-15 19:35 | NUR ---
RECEIVED PT FROM LYNDON CHANG PT IS AAOX4 AMBULATORY WITH BOTTLE LABELER ON TELEMETRY ST IV ON LEFT FA INFUSING WELL BOLUS NS FROM ER, LEFT FOOT EDEMA REDNESS THIRD TOE OPEN WOUND, RT FOOT THIRD TOE SCAB PT TAKEN NARES SWAB MRSA PROTOCOL AND SENT TO LAB PT IS ORIENTED TO THE FLOOR CALL LIGHT WITHIN REACH
[2017-05-15 20:00] VITALS: BP 103/68
--- NOTE | 2017-05-15 20:00 | NUR ---
DR GARCIA RESIDENT IS HERE AND SEE THE PT
[2017-05-15] MEDS: HYDROcodone/APAP 5/325 MG 1 TAB TAB PO PRN (20:16)
[2017-05-15] MEDS: BLOOD GLUCOSE MONITORING 1 DEV DEV FS SCH ×2 (20:30→21:00)
--- NOTE | 2017-05-15 20:30 | NUR ---
LOOD SUGAR TEST 349 COVERAGE WITH 8 UNITS HUMALOG SUBQ ON RT ARM AND ALSO HS SNACK GIVEN
[2017-05-15] MEDS: INSULIN LISPRO SLIDING SCALE 100 UNITS/ML VIAL SUBQ PRN (20:32)
--- NOTE | 2017-05-15 22:00 | NUR ---
PT DOES NOT WANT TO SIGN CONSENT FOR DEBRIDEMENT AND POSSIBLE AMPUTATION ON LEFT FOOT THIRD PHALAX SHE VERBALIZED THAT SHEWANT TO TALK TO THE PODIATRIC DR JONES BEFORE SIGN CONSENT.
[2017-05-15] MEDS ORDERED: PIPERACILLIN/TAZOBACTAM 3.375 GM VIAL IV ONE (22:09)
[2017-05-15] MEDS: PIPER/TAZO 3.375GM/D5W PREMIX 50 ML IV SCH (22:12)
[2017-05-16] VITALS (7 sets, daily range): BP systolic 91–118; BP diastolic 57–75
--- NOTE | 2017-05-16 | NUR ---
DR BERNARD IS HERE AND SEE THE PT
--- NOTE | 2017-05-16 | NUR ---
PT SLEEPING WELL DENIES ANY PAIN ON TELE METRY ST
--- NOTE | 2017-05-16 01:00 | NUR ---
PT REFUSED LANTUS BECAUSE SHE SAID AHE IS NPO AND SHE WILL HAVE SURGERY IN AM DR GARCIA AWARE
[2017-05-16] MEDS ORDERED: NACL 0.9% 1,000 ML IV SCH (02:30)
--- NOTE | 2017-05-16 04:00 | NUR ---
PT IS ASSISTED TO USE BEDPAN DENIES ANY PAIN ON TELEMETRY ST
[2017-05-16] MEDS: HYDROcodone/APAP 5/325 MG 1 TAB TAB PO PRN ×2 (04:56→21:35)
[2017-05-16] MEDS ORDERED: PIPERACILLIN/TAZOBACTAM 3.375 GM VIAL IV ONE (05:35)
[2017-05-16] MEDS: BLOOD GLUCOSE MONITORING 1 DEV DEV FS SCH ×4 (06:17→20:31)
[2017-05-16] MEDS: PIPER/TAZO 3.375GM/D5W PREMIX 50 ML IV SCH ×3 (06:20→17:07)
[2017-05-16] MEDS: INSULIN LISPRO SLIDING SCALE 100 UNITS/ML VIAL SUBQ PRN ×5 (06:33→20:30)
--- NOTE | 2017-05-16 06:56 | NUR ---
AFTER PAIN MEDIC GIVEN PT IS SLEEPING WELL BLOODSUGAR TEST [address] GARCIA SAID TOCOVER WITH HUMALOG PROTOCOL
--- NOTE | 2017-05-16 06:58 | NUR ---
DR GARCIA IS AWARE THAT PT WANT TO TALK WITH DR JONES BEFORE TO SIGN THE CONSENT
[2017-05-16 07:13] LABS: HEMATOCRIT 26.2 % (36-48); HEMOGLOBIN 8.6 g/dL (12.0-16.0); MEAN CORPUSCULAR HEMOGLOBIN 28 pg (27-31); MEAN CORPUSCULAR HGB CONC 33 g/dL (33-37); MEAN CORPUSCULAR VOLUME 85 fL (80-94); PLATELET COUNT (AUTO) 314 K/uL (140-450); RED BLOOD CELL COUNT(AUTO) 3.07 MIL/uL (4.20-5.40); RED CELL DISTRIBUTION WIDTH 13.1 % (11.6-13.7); WHITE BLOOD COUNT (AUTO) 11.4 K/uL (4.8-10.8)
[2017-05-16 07:28] LABS: MAGNESIUM 1.8 mg/dL (1.8-2.4); PHOSPHORUS 3.7 mg/dL (2.5-4.9)
--- NOTE | 2017-05-16 07:30 | NUR ---
RECEIVED PATIENT REPORT AT BEDSIDE FROM NIGHT NURSE. PATIENT IS SLEEPING, EASILY AROUSABLE WITH VOICE AND DENIES PAIN AT THIS TIME. PATIENT ON TELE MONITOR. NOTED EDEMATOUS, PINK, WARM TO TOUCH LEFT FOOT WITH PURULENT DRAINAGE ON THE 3RD PHALANX ASHLEY, RIGHT FOOT 3RD PHALANX SCAB WITH NO S/S OF INFECTION NOTED. PATIENT IS ON ROOM AIR, IV ON THE RIGHT FOREARM 20G WITH IVF'S INFUSING WELL. PATIENT WAS EXPLAINED POC FOR TODAY, SAFETY PRECAUTIONS IN PLACE AND SHE VERBALIZED UNDERSTANDING OF CARE. BED IN LOW POSITION WITH CALL LIGHT WITHIN REACH.
[2017-05-16 07:31] LABS: ANION GAP 18.4 (8-16); CARBON DIOXIDE 17.4 mmol/L (21-32); POTASSIUM 4.8 mmol/L (3.5-5.1)
--- NOTE | 2017-05-16 08:30 | NUR ---
SPOKE WITH DR CHARLES OF [facility] FOR BLOOD SUGAR OF 415, ORDERED TO GIVE HUMALOG 10 UNITS SQ NOW.
[2017-05-16 08:37] LABS: EOSINOPHILS % (MANUAL) 4 % (0-4); LYMPHOCYTES % (MANUAL) 7 % (20-46); MONOCYTES % (MANUAL) 4 % (5-12)
[2017-05-16] MEDS: DOCUSATE 100 MG/10 ML UDC PO SCH (08:45)
[2017-05-16] MEDS: LACTOBACILLUS RHAMNOSUS GG 1 EACH CAP PO SCH (08:45)
[2017-05-16] MEDS: metFORMIN 500 MG TAB PO SCH ×2 (08:45→17:06)
--- NOTE | 2017-05-16 08:50 | NUR ---
ADMINISTERED SCHEDULED MEDICATIONS, PATIENT REFUSED COLACE 100 MG PO, SHE STATED, "I'M NOT CONSTIPATED, I DON'T NEED A STOOL SOFTENER." ALL NEEDS MET AT THIS TIME, BED IN LOW POSITION WITH CALL LIGHT WITHIN REACH.
[2017-05-16] MEDS ORDERED: DEXT 5% / NACL 0.45% 1,000 ML IV SCH (08:55)
[2017-05-16] MEDS ORDERED: metFORMIN 500 MG TAB PO SCH (09:06)
[2017-05-16 10:11] LABS: MYOGLOBIN, SERUM <21 ng/mL (25-58)
--- NOTE | 2017-05-16 10:15 | NUR ---
BS IS 327 AFTER ADMINISTERING HUMALOG 10 UNITS SQ. PATIENT SHOWS NO S/S OF ACUTE DISTRESS, NO PAIN, ALL NEEDS MET AT THIS TIME, BED IN LOW POSITION WITH CALL LIGHT WITHIN REACH.
--- NOTE | 2017-05-16 11:28 | NUR ---
PATIENT HAS BEEN SCREENED AND CATEGORIZED HIGH NUTRITION RISK. PATIENT WILL BE SEEN WITHIN 1-2 DAYS OF ADMISSION. 05/16/17 - 05/17/[address]
[2017-05-16] MEDS ORDERED: fentaNYL 0.05 MG/ML VIAL ONE (12:30)
[2017-05-16] MEDS ORDERED: MIDAZOLAM 2 MG/2 ML VIAL ONE (12:30)
--- NOTE | 2017-05-16 12:30 | NUR ---
PATIENT LEFT TO PROCEDURE IN STABLE CONDITION.
[2017-05-16] MEDS ORDERED: SEVOFLURANE 250 ML BTL INH ONE (12:35)
[2017-05-16] MEDS ORDERED: PROPOFOL 200 MG/20 ML VIAL IV ONE (12:35)
[2017-05-16] MEDS ORDERED: BUPIVACAINE-MPF 0.5% 30 ML VIAL INJ ONE (12:37)
[2017-05-16] MEDS ORDERED: LIDOCAINE MPF 1% - **ER/OR** 0 ML ONE (12:38)
[2017-05-16] MEDS: NACL 0.9% 1,000 ML IV SCH ×2 (13:08→20:41)
[2017-05-16] MEDS ORDERED: BLOOD GLUCOSE MONITORING 1 DEV DEV FS ONE (13:10)
[2017-05-16] MEDS ORDERED: diphenhydrAMINE 50 MG/ML VIAL IVP PRN (13:10)
[2017-05-16] MEDS ORDERED: HYDROmorphone 1 MG/ML AMP IVP PRN (13:10)
[2017-05-16] MEDS ORDERED: MEPERIDINE 25 MG/ML SYR IVP PRN (13:10)
--- NOTE | 2017-05-16 14:55 | NUR ---
PATIENT CAME BACK FROM SURGERY, PATIENT SHOWS NO S/S OF ACUTE DISTRESS AT THIS TIME, DENIES PAIN.
[2017-05-16] MEDS: MORPHINE SULFATE 2 MG/ML SYR IVP PRN (17:06)
--- NOTE | 2017-05-16 17:20 | NUR ---
ADMINISTERED MORPHINE 1 MG IVP FOR 10/10 LEFT FOOT PAIN, PATIENT ALSO GIVEN SCHEDULED MEDICATIONS, DR. GARCIA CAME IN TO SEE PATIENT. PATIENT HAS NOTABLE SHAKES HOWEVER NO FEVER INDICATED. DR IS TO PLACE NEW ORDERS.
[2017-05-16] MEDS ORDERED: FERROUS SULFATE 325 MG TABEC PO SCH (17:30)
[2017-05-16] MEDS ORDERED: ASCORBIC ACID 500 MG TAB PO SCH (17:30)
[2017-05-16] MEDS ORDERED: FUROSEMIDE 20 MG/2 ML VIAL IVP SCH (18:40)
--- NOTE | 2017-05-16 18:45 | NUR ---
PATIENT HAD A RUTLEDGE CATHETER INSERTED, WHILE INSERTING NOTED EDEMATOUS, PINK LABIA. PATIENT RUTLEDGE CATHETER IS DRAINING ELE CLEAR ELE URINE. DR GARCIA WAS NOTIFIED OF PATIENT'S ABNORMAL FINDING. PATIENT'S BED IS IN LOW POSITION WITH CALL LIGHT WITHIN REACH, BED IN LOW POSITION, ALL NEEDS MET AT THIS TIME.
--- NOTE | 2017-05-16 19:15 | NUR ---
PATIENT REPORT GIVEN TO EJMAL RN AT BEDSIDE, PATIENT ENDORSED IN STABLE CONDITION.
--- NOTE | 2017-05-16 19:20 | NUR ---
RECEIVED PT FROM NIYAH RN PT S/P LEFT FOOT HTIRD TOE AMPUTEE PT AAOX4 LEFT FOOT DRESSING DRY TOES PINK COLOR, IV ON RT FA INFUSING WELL ON TELEMETRY AAMIR QUEEN DRAINING WELL YELLOW URINE PT MOTHER AT BED SIDE INITIAL ASSESSMENT DONE
[2017-05-16] MEDS: INSULIN LANTUS 100 UNITS/ML 10 ML VIAL SUBQ SCH (20:27)
--- NOTE | 2017-05-16 21:30 | NUR ---
BLOOD SUGAR TEST 269 COVERAGE WITH6 UNITS SUB Q HUMALOG FOLLOW PROTOCOL
--- NOTE | 2017-05-16 23:00 | NUR ---
PT REMAIN STABLE DENIES ANY PAIN LEFT FOOT ON PILLOW ELEVATION DRESSING DRY AND INTACT
[2017-05-17] VITALS: BP 90/53
[2017-05-17] MEDS: PIPER/TAZO 3.375GM/D5W PREMIX 50 ML IV SCH ×4 (00:15→19:09)
--- NOTE | 2017-05-17 01:26 | NUR ---
PT SLEEPING WELL ON TELEMETRY SR LEFT FOOT ON PILLOW ELEVATION DRESSING DRY AND INTACT, RUTLEDGE CATH DRAINING WELL YELLOW URINE IV ON RT FA INFUSING WELL
[2017-05-17 04:00] VITALS: BP 98/65
--- NOTE | 2017-05-17 04:00 | NUR ---
SPONGE BATH GIVEN LINEN CHANGED LEFT FOOT ON PILLOW ELEVATION ON TELEMETRY ST RUTLEDGE DRAINING WELL YELLOW URINE
[2017-05-17] MEDS: NACL 0.9% 1,000 ML IV SCH ×3 (05:48→22:28)
[2017-05-17] MEDS: BLOOD GLUCOSE MONITORING 1 DEV DEV FS SCH ×4 (06:14→21:19)
[2017-05-17] MEDS: INSULIN LISPRO SLIDING SCALE 100 UNITS/ML VIAL SUBQ PRN ×4 (06:15→21:21)
--- NOTE | 2017-05-17 06:31 | NUR ---
BLOOD SUGAR TEST 340 COVERAGE [id number] SUB Q HUMALOG FOLLOW PROTOCOL
[2017-05-17 07:02] LABS: BASOPHILS # (AUTO) 0.1 K/uL (0.00-0.22); BASOPHILS % (AUTO) 0.4 % (0.0-2.0); EOSINOPHILS # (AUTO) 0.2 K/uL (0-0.4); EOSINOPHILS % (AUTO) 1.4 % (0.0-4.0); HEMATOCRIT 25.5 % (36-48); HEMOGLOBIN 8.4 g/dL (12.0-16.0); LYMPHOCYTES # (AUTO) 1.1 K/uL (2.5-16.5); MEAN CORPUSCULAR HEMOGLOBIN 28 pg (27-31); MEAN CORPUSCULAR HGB CONC 33 g/dL (33-37); MEAN CORPUSCULAR VOLUME 86 fL (80-94); MONOCYTES # (AUTO) 1.2 K/uL (0.8-1.0); MONOCYTES % (AUTO) 8.9 % (1.7-9.3); NEUTROPHILS # (AUTO) 10.6 K/uL (1.8-7.7); NEUTROPHILS % (AUTO) 81.3 % (42.2-75.2); PLATELET COUNT (AUTO) 344 K/uL (140-450); RED BLOOD CELL COUNT(AUTO) 2.98 MIL/uL (4.20-5.40); RED CELL DISTRIBUTION WIDTH 13.5 % (11.6-13.7); WHITE BLOOD COUNT (AUTO) 13.2 K/uL (4.8-10.8)
[2017-05-17 07:03] LABS: ANION GAP 16.1 (8-16); CARBON DIOXIDE 20.1 mmol/L (21-32); CREATININE 0.9 mg/dL (0.6-1.3); POTASSIUM 4.2 mmol/L (3.5-5.1)
[2017-05-17 07:29] LABS: MAGNESIUM 1.7 mg/dL (1.8-2.4); PHOSPHORUS 3.2 mg/dL (2.5-4.9)
[2017-05-17 07:40] VITALS: BP 94/64
[2017-05-17] MEDS ORDERED: MORPHINE SULFATE 2 MG/ML SYR IVP SCH (09:22)
[2017-05-17] MEDS: LACTOBACILLUS RHAMNOSUS GG 1 EACH CAP PO SCH (09:29)
[2017-05-17] MEDS: ASCORBIC ACID 500 MG TAB PO SCH (09:29)
[2017-05-17] MEDS: FERROUS SULFATE 325 MG TABEC PO SCH (09:30)
[2017-05-17] MEDS: metFORMIN 500 MG TAB PO SCH ×2 (09:30→17:42)
[2017-05-17] MEDS: DOCUSATE 100 MG/10 ML UDC PO SCH (09:59)
[2017-05-17] MEDS: FUROSEMIDE 20 MG/2 ML VIAL IVP SCH (10:04)
[2017-05-17] MEDS ORDERED: VANCOMYCIN PER PHARMACY MC PRN (10:10)
[2017-05-17] MEDS ORDERED: VANCOMYCIN 1,250 MG in DEXTROSE 5% 250 ML IV SCH (10:50)
[2017-05-17] MEDS ORDERED: ECOTRIN 81 MG TABEC PO SCH (10:59)
[2017-05-17] MEDS ORDERED: MAGNESIUM OXIDE 400 MG TAB PO SCH (11:05)
[2017-05-17 12:11] VITALS: BP 103/67
[2017-05-17] MEDS ORDERED: VANCOMYCIN 1,500 MG in DEXTROSE 5% 500 ML IV SCH (14:00)
--- NOTE | 2017-05-17 14:49 | NUR ---
05/17/2017 RD INITIAL ASSESSMENT COMPLETED PLEASE REFER TO NUTRITION ASSESSMENT UNDER CARE ACTIVITY FOR ESTIMATED NUTRITIONAL NEEDS. CONTINUE 60 [facility] DIET NURSING AND DIETARY STAFF TO ENCOURAGE INCREASED PO INTAKE TOLERATED. PROVIDED DM DIET EDUCATION. FOLLOW UP W/ DIET EDUCATION. RD TO FOLLOW-UP IN 3-5 DAYS PATIENT IS MODERATE RISK. SWATHI ELIZALDE RD
[2017-05-17 16:30] VITALS: BP 114/74
[2017-05-17] MEDS: MORPHINE SULFATE 2 MG/ML SYR IVP PRN (18:36)
--- NOTE | 2017-05-17 19:30 | NUR ---
RECEIVED FROM AM RN IN BED AWAKE AND ON THE PHONE TALKING WITH FAMILY. NO SOB. DENIES PAIN AT THIS TIME. DX. I AND D TO LEFT FOOT INFECTION AND AMPUTATION OF 3RD TOE LEFT FOOT 05/16/17. ABLE TO VERBALIZE NEEDS WELL IN YI. CALL LIGHT WITH IN REACH. CARE PLANS FOR THE NIGHT DISCUSSED WITH HER. ORIENTED X 4. PT. ABLE TO URINATE ON BEDSIDE COMMODE AFTER RUTLEDGE CATHETER REMOVED. ASSISTED BY HAND COREMAKER FROM BED TO BSC. DRESSING INTACT AND NO BLEEDING NOTED.
[2017-05-17 20:26] VITALS: BP 104/67
[2017-05-17] MEDS ORDERED: INSULIN LANTUS 100 UNITS/ML 10 ML VIAL SUBQ SCH (21:00)
[2017-05-17] MEDS: ATORVASTATIN 20 MG TAB PO SCH (21:14)
[2017-05-17] MEDS: INSULIN LANTUS 100 UNITS/ML 10 ML VIAL SUBQ SCH (21:28)
[2017-05-17] MEDS ORDERED: INSULIN LISPRO 100 UNITS/ML VIAL SUBQ SCH (21:30)
[2017-05-17] MEDS: SENNA 8.6 MG TAB PO SCH (21:30)
[2017-05-17] MEDS ORDERED: FUROSEMIDE 20 MG/2 ML VIAL IVP SCH (21:30)
--- NOTE | 2017-05-17 22:22 | NUR ---
PT. HAD URINATED IN BEDPAN X 2 AND HAD BM . PROVIDED WITH MIDNIGHT SNACK REQUESTED. ABLE TO VERBALIZE NEEDS WELL. CALL LIGHT WITH IN REACH.
--- NOTE | 2017-05-18 | NUR ---
PT. SLEEPING. USES CALL LIGHT FOR HELP. A/O X 4. NO SOB. PT. PROVIDED WITH BEDPAN RT CAN NOT STAND ON HER LEFT LEG YET. PER PT. TOO PAINFUL TO STEP ON.
[2017-05-18] MEDS: PIPER/TAZO 3.375GM/D5W PREMIX 50 ML IV SCH ×4 (00:02→18:13)
[2017-05-18 00:45] VITALS: BP 94/62
[2017-05-18] MEDS: NACL 0.9% 1,000 ML IV SCH (01:18)
[2017-05-18] MEDS ORDERED: VANCOMYCIN 1,250 MG in DEXTROSE 5% 250 ML IV SCH (02:00)
--- NOTE | 2017-05-18 04:00 | NUR ---
SLEEPING. NO SOB. USES CALL LIGHT FOR HELP. IVF SITE TO RIGHT FOREARM INTACT AND WITH GOOD BLOOD RETURN.
[2017-05-18 04:03] VITALS: BP 113/75
[2017-05-18] MEDS: MORPHINE SULFATE 2 MG/ML SYR IVP PRN ×3 (04:03→22:07)
[2017-05-18] MEDS: BLOOD GLUCOSE MONITORING 1 DEV DEV FS SCH ×4 (05:27→21:12)
[2017-05-18] MEDS: INSULIN LISPRO SLIDING SCALE 100 UNITS/ML VIAL SUBQ PRN ×4 (05:33→21:20)
--- NOTE | 2017-05-18 06:25 | NUR ---
SLEEPING WELL. MEDICATED WITH PAIN RELIEVER MORPHINE IVP 1 MG. ORDERED FOR PAIN S/P AMPUTATION 3RD DIGIT LEFT FOOT AND I AND D CALLUS RIGHT ANKLE. NO BLEEDING TO DRESSING.
--- NOTE | 2017-05-18 07:10 | NUR ---
RECEIVED REPORT FROM NIGHTSHIFT NURSE AT BEDSIDE. PATIENT IS ASLEEP BUT AROUSABLE AT THIS TIME. PATIENT IS ALERT AND ORIENTED X4. PATIENT SHOWS NO SIGNS OF PAIN AT THIS TIME. PATIENT DOES NOT SHOW ANY SIGNS OF RESPIRATORY DISTRESS OR RESPIRATORY DEPRESSION. UPDATED BOARD IN PATIENTS ROOM. CALL LIGHT WITHIN REACH OF PATIENT. WILL CONTINUE TO MONITOR PATIENT.
[2017-05-18 07:28] LABS: BASOPHILS # (AUTO) 0.1 K/uL (0.00-0.22); BASOPHILS % (AUTO) 1.6 % (0.0-2.0); EOSINOPHILS # (AUTO) 0.4 K/uL (0-0.4); EOSINOPHILS % (AUTO) 4.4 % (0.0-4.0); HEMATOCRIT 25.5 % (36-48); HEMOGLOBIN 8.6 g/dL (12.0-16.0); LYMPHOCYTES # (AUTO) 1.2 K/uL (2.5-16.5); LYMPHOCYTES % (AUTO) 14.4 % (20.5-51.1); MEAN CORPUSCULAR HEMOGLOBIN 28 pg (27-31); MEAN CORPUSCULAR HGB CONC 34 g/dL (33-37); MEAN CORPUSCULAR VOLUME 84 fL (80-94); MONOCYTES # (AUTO) 0.7 K/uL (0.8-1.0); MONOCYTES % (AUTO) 8.9 % (1.7-9.3); NEUTROPHILS # (AUTO) 5.8 K/uL (1.8-7.7); NEUTROPHILS % (AUTO) 70.7 % (42.2-75.2); PLATELET COUNT (AUTO) 385 K/uL (140-450); RED BLOOD CELL COUNT(AUTO) 3.02 MIL/uL (4.20-5.40); RED CELL DISTRIBUTION WIDTH 13.7 % (11.6-13.7); WHITE BLOOD COUNT (AUTO) 8.2 K/uL (4.8-10.8)
[2017-05-18 08:00] VITALS: BP 107/74
[2017-05-18 08:28] LABS: ANION GAP 10.5 (8-16); CARBON DIOXIDE 25.3 mmol/L (21-32); CREATININE 0.8 mg/dL (0.6-1.3); POTASSIUM 3.8 mmol/L (3.5-5.1)
[2017-05-18] MEDS: ASCORBIC ACID 500 MG TAB PO SCH (08:30)
[2017-05-18] MEDS: LACTOBACILLUS RHAMNOSUS GG 1 EACH CAP PO SCH (08:30)
[2017-05-18] MEDS: DOCUSATE 100 MG/10 ML UDC PO SCH (08:30)
[2017-05-18] MEDS: FUROSEMIDE 20 MG/2 ML VIAL IVP SCH (08:30)
[2017-05-18] MEDS: FERROUS SULFATE 325 MG TABEC PO SCH (08:31)
[2017-05-18] MEDS ORDERED: FUROSEMIDE 20 MG/2 ML VIAL IVP SCH (09:00)
[2017-05-18] MEDS: SENNA 8.6 MG TAB PO SCH (09:00)
--- NOTE | 2017-05-18 09:10 | NUR ---
PATIENT RESTING IN BED AT THIS TIME. NO SIGNS OF RESPIRATORY DISTRESS OR RESPIRATORY DEPRESSION. WILL CONTINUE TO MONITOR PATIENT.
--- NOTE | 2017-05-18 09:25 | NUR ---
SPOKE TO DR. CHARLES RT WOUND CARE S/P LEFT 3RD TOE AMPUTATION AND S/P I&D LEFT FOOT , DR. HENSLEY HAS NOTE ON 05/17/2017 " Dressing changed with 1/4 inch iodoform, adaptic, 4x4 gauze, kerlix, and cassia bandage. To be changed daily by podiatry with the same. " PLAN OF CARE DISCUSSED WITH DR. CHARLES NO WOUND CARE EVALUATION AT THIS TIME, WILL FOLLOW CHIROPRACTIC NEUROLOGIST ORDER.
--- NOTE | 2017-05-18 10:10 | NUR ---
GAVE MORPHINE 1 MG/0.5 ML TO PATIENT FOR PREPROCEDURE MANAGEMENT OF PAIN BEFORE A WOUND CARE DRESSING ON PATIENTS FOOT. AT BEDSIDE WAITING. TRISTAN FROM PHARMACY IS AWARE OF THE USE OF THE MORPHINE 1 MG/0.5 ML. WILL CONTINUE TO MONITOR PATIENT.
[2017-05-18] MEDS ORDERED: MORPHINE SULFATE 2 MG/ML SYR IVP SCH (10:40)
[2017-05-18 10:53] LABS: MAGNESIUM 1.6 mg/dL (1.8-2.4); PHOSPHORUS 3.2 mg/dL (2.5-4.9)
--- NOTE | 2017-05-18 12:20 | NUR ---
PATIENT RESTING AT THIS TIME. PATIENT FAMILY MEMBER AT BEDSIDE. NO COMPLAINTS OF PAIN AND NO SIGNS OF RESPIRATORY DISTRESS OR RESPIRATORY DEPRESSION. WILL CONTINUE TO MONITOR PATIENT.
--- NOTE | 2017-05-18 13:22 | NUR ---
PATIENT RESTING IN BED WITH FAMILY MEMBER AT BEDSIDE. PATIENT IN RIGHT SIDE LYING POSITION. NO COMPLAINTS OF PAIN AT THIS TIME. WILL CONTINUE TO MONITOR PATIENT.
--- NOTE | 2017-05-18 15:40 | NUR ---
PATIENT REFUSED THE PARACENTESIS PROCEDURE. WILL NOTIFY THE DOCTOR.
[2017-05-18 16:08] VITALS: BP 111/77
--- NOTE | 2017-05-18 17:34 | NUR ---
PATIENT RESTING IN BED AT THIS TIME. NO COMPLAINTS OF PAIN. WILL CONTINUE TO MONITOR PATIENT.
--- NOTE | 2017-05-18 18:16 | NUR ---
STARTED 22G IV IN PATIENT'S RIGHT FOREARM. PATIENT TOLERATED WELL. WILL CONTINUE TO MONITOR PATIENT.
--- NOTE | 2017-05-18 19:16 | NUR ---
GAVE REPORT TO NIGHTSHIFT NURSE AT BEDSIDE. PATIENT IS IN STABLE CONDITION.
--- NOTE | 2017-05-18 19:16 | NUR ---
RECEIVED FROM AM RN IN BED AWAKE AN D ALERT. NO COMPLAINT OF ANY PAIN AT THIS TIME. NO SOB. CALL LIGHT WITH IN REACH AND CARE PLANS FOR THE NIGHT DISCUSSED WITH PT. A/O X 4. DX. I AND D OF RIGHT FOOT CALLUS AND AMPUTATION 3RD DIGIT LEFT FOOT.
[2017-05-18] MEDS: ATORVASTATIN 20 MG TAB PO SCH (21:10)
[2017-05-18] MEDS: INSULIN LANTUS 100 UNITS/ML 10 ML VIAL SUBQ SCH (21:21)
[2017-05-18 21:56] VITALS: BP 116/76
--- NOTE | 2017-05-18 22:26 | NUR ---
REQUESTED FOR MORPHINE RT PAIN FROM LEFT FOOT AMPUTATION / 3RD DIGIT/TOE. MEDICATED ORDERED. NO FURTHER COMPLAINTS DONE. GOOD AFFECT. CALL LIGHT WITH IN REACH AT ALL TIMES. A/O X 4.
[2017-05-19 00:15] VITALS: BP 114/72
[2017-05-19] MEDS: PIPER/TAZO 3.375GM/D5W PREMIX 50 ML IV SCH ×5 (00:20→23:43)
[2017-05-19] MEDS: NACL 0.9% 1,000 ML IV SCH ×2 (00:26→23:43)
--- NOTE | 2017-05-19 00:27 | NUR ---
SLEEPING AT THIS TIME. NO RESTLESSNESS. PT. WAKES UP EASILY WHEN TOUCHED. CALL LIGHT WITH IN REACH.
--- NOTE | 2017-05-19 02:00 | NUR ---
PT. PLACED ON BEDPAN REQUESTED. NO FARTHER COMPLAINTS DONE. A/O X 4. CLEAR SPEECH. NO BLEEDING TO DRESSING OF LEFT LOWER LEG.
--- NOTE | 2017-05-19 04:34 | NUR ---
SLEEPING STILL. NO RESTLESSNESS. NO COMPLAINTS. CALL LIGHT AT BEDSIDE ALL THE TIME.
[2017-05-19] MEDS: BLOOD GLUCOSE MONITORING 1 DEV DEV FS SCH ×4 (06:10→20:14)
[2017-05-19] MEDS: INSULIN LISPRO SLIDING SCALE 100 UNITS/ML VIAL SUBQ PRN ×4 (06:14→20:15)
--- NOTE | 2017-05-19 06:42 | NUR ---
PT. SEEN WITH BLOOD SUGAR CHECK PER FINGERSTICK DONE. NO COMPLAINTS DONE. ABLE TO VERBALIZE SIMPLE NEEDS. A/O X 4. CLEAR SPEECH. NO COMPLAINTS DONE THIS SHIFT. NEEDS ATTENDED TO . IVF SITE TO RIGHT FOREARM #22 INTACT AND NO INFILTRATION. NO ADVERSE REACTION TO ZOSYN IVP INFUSED.
[2017-05-19 07:06] LABS: BASOPHILS # (AUTO) 0.1 K/uL (0.00-0.22); BASOPHILS % (AUTO) 1.6 % (0.0-2.0); EOSINOPHILS # (AUTO) 0.4 K/uL (0-0.4); EOSINOPHILS % (AUTO) 7.1 % (0.0-4.0); HEMATOCRIT 25.7 % (36-48); HEMOGLOBIN 8.6 g/dL (12.0-16.0); LYMPHOCYTES # (AUTO) 1.1 K/uL (2.5-16.5); LYMPHOCYTES % (AUTO) 20.4 % (20.5-51.1); MEAN CORPUSCULAR HEMOGLOBIN 28 pg (27-31); MEAN CORPUSCULAR HGB CONC 34 g/dL (33-37); MEAN CORPUSCULAR VOLUME 84 fL (80-94); MONOCYTES # (AUTO) 0.6 K/uL (0.8-1.0); NEUTROPHILS # (AUTO) 3.3 K/uL (1.8-7.7); NEUTROPHILS % (AUTO) 60.9 % (42.2-75.2); PLATELET COUNT (AUTO) 417 K/uL (140-450); RED BLOOD CELL COUNT(AUTO) 3.06 MIL/uL (4.20-5.40); RED CELL DISTRIBUTION WIDTH 13.6 % (11.6-13.7); WHITE BLOOD COUNT (AUTO) 5.5 K/uL (4.8-10.8)
--- NOTE | 2017-05-19 07:30 | NUR ---
RECEIVED PT AAOX4. NO SOB NOTED. NO C/O PAIN AT THIS TIME. IV TO RT FOREARM PATENT AND INTACT. CHEST, DIMINISHED AIR ENTRY TO THE BASES. ABDOMEN SOFT, BOWEL SOUNDS. LT FOOT DRESSING DRY AND INTACT, LT FOOT ELEVATED WITH PILLOW. INSTRUCTED PT TO CALL FOR ASSISTANCE, CALL LIGHT WITHIN REACH, PT VERBALIZED UNDERSTANDING.
[2017-05-19 08:00] VITALS: BP 115/74
[2017-05-19 08:19] LABS: ANION GAP 9.1 (8-16); CARBON DIOXIDE 27.8 mmol/L (21-32); CREATININE 0.7 mg/dL (0.6-1.3); POTASSIUM 3.9 mmol/L (3.5-5.1)
[2017-05-19 08:20] LABS: MAGNESIUM 1.4 mg/dL (1.8-2.4)
[2017-05-19] MEDS ORDERED: FUROSEMIDE 20 MG/2 ML VIAL IVP SCH (09:00)
--- NOTE | 2017-05-19 09:00 | NUR ---
POST OP SHOE APPLIED TO LT FOOT.
[2017-05-19] MEDS: DOCUSATE 100 MG/10 ML UDC PO SCH (09:37)
[2017-05-19] MEDS: FERROUS SULFATE 325 MG TABEC PO SCH (09:37)
[2017-05-19] MEDS: SENNA 8.6 MG TAB PO SCH (09:38)
[2017-05-19] MEDS: LACTOBACILLUS RHAMNOSUS GG 1 EACH CAP PO SCH (09:38)
[2017-05-19] MEDS: ASCORBIC ACID 500 MG TAB PO SCH (09:39)
[2017-05-19] MEDS: FUROSEMIDE 20 MG/2 ML VIAL IVP SCH (09:40)
[2017-05-19] MEDS ORDERED: MORPHINE SULFATE 2 MG/ML SYR IVP SCH (10:03)
--- NOTE | 2017-05-19 10:30 | NUR ---
LT FOOT WOUND DRESSING CHANGED BY DR. REYES FROM [facility]. PHOTOS TAKEN AND DOCUMENTED.
--- NOTE | 2017-05-19 11:30 | NUR ---
PHYSICAL THERAPY ON GOING AT THE BEDSIDE.
[2017-05-19] MEDS ORDERED: MAG SULF 2000 MG/WATER PREMIX 50 ML IV SCH (14:01)
--- NOTE | 2017-05-19 14:40 | NUR ---
05/19/17 RD FOLLOW UP COMPLETED PLEASE REFER TO NUTRITION PROGRESS NOTE UNDER CARE ACTIVITY FOR ESTIMATED NUTRITION NEEDS. RD RECOMMENDATIONS: 1. CONTINUE 60 GMS CCHO DIET 2. PROVIDED DM DIET EDUCATION. 4. RD WILL F/U 5-7 DAYS; LOW RISK. CONSTANTINE ELDRIDGE MS, RDN
[2017-05-19 16:00] VITALS: BP 132/83
--- NOTE | 2017-05-19 19:00 | NUR ---
PT AWAKE, WATCHING TV. NO COMPLAINTS MADE. WILL ENDORSE TO NEXT SHIFT NURSE FOR CONTINUITY OF CARE.
--- NOTE | 2017-05-19 19:15 | NUR ---
RECEIVED REPORT FROM DAY SHIFT RN, PT IS Love/RUPERT4, ON ROOM AIR. 22G IV ACCESS TO RIGHT FOREARM INFUSING NS@30ML/HR. 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 UPDATED BOARD. DISCUSSED PLAN OF CARE WITH PT, PT VERBALIZED UNDERSTANDING. VITAL SIGNS WITHIN NORMAL LIMITS. PT IN STABLE CONDITION, NO SIGNS OF DISTRESS NOTED. BED IN LOWEST POSITION, CALL LIGHT WITHIN REACH. WILL CONTINUE TO MONITOR.
[2017-05-19] MEDS: ATORVASTATIN 20 MG TAB PO SCH (20:15)
[2017-05-19] MEDS: INSULIN LANTUS 100 UNITS/ML 10 ML VIAL SUBQ SCH (20:16)
[2017-05-19] MEDS: MORPHINE SULFATE 2 MG/ML SYR IVP PRN (20:18)
--- NOTE | 2017-05-19 20:20 | NUR ---
ADMINISTERED SCHEDULED MEDICATIONS, PT TOLERATED WELL. ALSO, ADMINISTERED MORPHINE FOR C/O 7/10 FOOT PAIN, AND HUMALOG 6UNIT COVERAGE FOR BLOOD SUGAR LEVEL 253.
--- NOTE | 2017-05-19 22:25 | NUR ---
PT IN STABLE CONDITION, NO SIGNS OF DISTRESS NOTED. BED IN LOWEST POSITION, CALL LIGHT WITHIN REACH. WILL CONTINUE TO MONITOR.
[2017-05-20] VITALS: BP 111/76
--- NOTE | 2017-05-20 | NUR ---
VITAL SIGNS WITHIN NORMAL LIMITS. PT IN STABLE CONDITION, NO SIGNS OF DISTRESS NOTED. BED IN LOWEST POSITION, CALL LIGHT WITHIN REACH. WILL CONTINUE TO MONITOR.
--- NOTE | 2017-05-20 02:15 | NUR ---
PT IN STABLE CONDITION, NO SIGNS OF DISTRESS NOTED. BED IN LOWEST POSITION, CALL LIGHT WITHIN REACH. WILL CONTINUE TO MONITOR.
--- NOTE | 2017-05-20 04:35 | NUR ---
PT IN STABLE CONDITION, NO SIGNS OF DISTRESS NOTED. BED IN LOWEST POSITION, CALL LIGHT WITHIN REACH. WILL CONTINUE TO MONITOR.
[2017-05-20] MEDS: MORPHINE SULFATE 2 MG/ML SYR IVP PRN (04:58)
[2017-05-20] MEDS: PIPER/TAZO 3.375GM/D5W PREMIX 50 ML IV SCH ×3 (06:04→18:20)
[2017-05-20] MEDS: INSULIN LISPRO SLIDING SCALE 100 UNITS/ML VIAL SUBQ PRN ×3 (06:05→20:25)
--- NOTE | 2017-05-20 06:10 | NUR ---
ADMINISTERED 10 UNITS OF SLIDING SCALE INSULIN, HUMALOG, TO PT BECAUSE OF PT HAVING BLOOD SUGAR OF 380. PT TOLERATED WELL.
[2017-05-20 06:37] LABS: BASOPHILS # (AUTO) 0.1 K/uL (0.00-0.22); EOSINOPHILS # (AUTO) 0.4 K/uL (0-0.4); LYMPHOCYTES # (AUTO) 1.4 K/uL (2.5-16.5); MONOCYTES # (AUTO) 0.7 K/uL (0.8-1.0); RED CELL DISTRIBUTION WIDTH 13.7 % (11.6-13.7)
[2017-05-20] MEDS: BLOOD GLUCOSE MONITORING 1 DEV DEV FS SCH ×4 (06:45→20:23)
[2017-05-20 06:49] LABS: BASOPHILS % (AUTO) 1.9 % (0.0-2.0); EOSINOPHILS % (AUTO) 6.3 % (0.0-4.0); HEMATOCRIT 25.3 % (36-48); HEMOGLOBIN 8.5 g/dL (12.0-16.0); LYMPHOCYTES % (AUTO) 21.3 % (20.5-51.1); MEAN CORPUSCULAR HEMOGLOBIN 28 pg (27-31); MEAN CORPUSCULAR HGB CONC 34 g/dL (33-37); MEAN CORPUSCULAR VOLUME 84 fL (80-94); MONOCYTES % (AUTO) 10.3 % (1.7-9.3); NEUTROPHILS % (AUTO) 60.2 % (42.2-75.2); PLATELET COUNT (AUTO) 431 K/uL (140-450); RED BLOOD CELL COUNT(AUTO) 2.99 MIL/uL (4.20-5.40); WHITE BLOOD COUNT (AUTO) 6.6 K/uL (4.8-10.8)
[2017-05-20 07:07] LABS: ANION GAP 10.2 (8-16); CARBON DIOXIDE 27.7 mmol/L (21-32); CREATININE 0.9 mg/dL (0.6-1.3); POTASSIUM 3.9 mmol/L (3.5-5.1)
--- NOTE | 2017-05-20 07:15 | NUR ---
RECEIVED CALL FROM LAB TO REPORT CRITICAL LAB AT THE TIME I WAS ENDORSING PT TO DAY SHIFT RN, ENDORSED CRITICAL LAB VALUE OF BLOOD GLUCOSE 409 WELL. HAD ALREADY ADMINISTERED 10 UNITS OF HUMALOG TO PT.
--- NOTE | 2017-05-20 07:16 | NUR ---
RECEIVED REPORT FROM SALES RELATIONSHIP MANAGER NURSE. PATIENT LYING DOWN IN BED SLEEPING, AROUSABLE BY VOICE. NO DISTRESS NOTED. DENIES ANY PAIN AT THIS TIME. AAOX4, CALM, COOPERATIVE, SKIN COLOR APPROPRIATE TO ETHNICITY, WARM TO TOUCH. DRESSING ON LEFT FOOT S/P I&D AND LEFT THIRD TOE AMPUTATION DRY AND INTACT. LUNGS CRACKLES HEARD ON ALL LOBES. ABDOMEN SOFT, NON-DISTENDED. IV SITE INTACT, PATENT AND INFUSING IVF PER ORDERS. REVIEWED PLAN OF CARE WITH PATIENT. PATIENT VERBALIZED UNDERSTANDING. SAFETY MEASURES IN PLACE, CALL LIGHT WITHIN REACH, FALL PREVENTIONS IN PLACE. WILL CONTINUE TO MONITOR.
[2017-05-20 07:56] LABS: MAGNESIUM 1.6 mg/dL (1.8-2.4); PHOSPHORUS 4.4 mg/dL (2.5-4.9)
[2017-05-20 08:00] VITALS: BP_SYST 131; BP_DIAS 103; BP_DIAS 87
[2017-05-20] MEDS: LACTOBACILLUS RHAMNOSUS GG 1 EACH CAP PO SCH (09:06)
[2017-05-20] MEDS: ASCORBIC ACID 500 MG TAB PO SCH (09:07)
[2017-05-20] MEDS: FERROUS SULFATE 325 MG TABEC PO SCH (09:07)
[2017-05-20] MEDS: SENNA 8.6 MG TAB PO SCH (09:08)
[2017-05-20] MEDS: MAGNESIUM OXIDE 400 MG TAB PO SCH (09:08)
[2017-05-20] MEDS: DOCUSATE 100 MG/10 ML UDC PO SCH (09:09)
[2017-05-20] MEDS: FUROSEMIDE 20 MG/2 ML VIAL IVP SCH (09:10)
--- NOTE | 2017-05-20 09:20 | NUR ---
PATIENT LYING IN BED SLEEPING, AROUABLE BY VOICE. NO DISTRESS NOTED. DENIES ANY PAIN AT THIS TIME. SCHEDULED MEDICATIONS DUE GIVEN. SAFETY MEASURES IN PLACE, CALL LIGHT WITHIN REACH, BEDSIDE COMMODE NEAR BEDSIDE. WILL CONTINUE TO MONITOR.
[2017-05-20 11:32] LABS: PROTHROMBIN TIME 11.1 secs (10.8-13.4)
--- NOTE | 2017-05-20 11:45 | NUR ---
PATIENT SITTING IN BED WATCHING TV. NO DISTRESS NOTED. DENIES ANY PAIN. DRESSING DRY AND INTACT ON LEFT FOOT. SCHEDULED MEDICATIONS DUE GIVEN. SAFETY MEASURES IN PLACE, CALL LIGHT WITHIN REACH. WILL CONTINUE TO MONITOR.
--- NOTE | 2017-05-20 13:57 | NUR ---
PATIENT LYING IN BED SLEEPING, AROUSABLE BY VOICE. NO DISTRESS NOTED. CONDITION UNCHANGED. SAFETY MEASURES IN PLACE, CALL LIGHT WITHIN REACH. WILL CONTINUE TO MONITOR.
--- NOTE | 2017-05-20 15:30 | NUR ---
PATIENT SITTING IN BED WATCHING TV WITH MOTHER AT BEDSIDE. NO DISTRESS NOTED. DENIES ANY PAIN. CONDITION UNCHANGED. SAFETY MEASURES IN PLACE,C ALL LIGHT WITHIN REACH. WILL CONTINUE TO MONITOR.
[2017-05-20 16:00] VITALS: BP 130/83
--- NOTE | 2017-05-20 16:44 | NUR ---
PATIENT LYING IN BED SLEEPING, AROUSABLE BY VOICE. NO DISTRESS NOTED. DENIES ANY PAIN. SAFETY MEASURES IN PLACE, CALL LIGHT WITHIN REACH. WILL CONTINUE TO MONITOR.
[2017-05-20] MEDS: HYDROcodone/APAP 5/325 MG 1 TAB TAB PO PRN (18:28)
--- NOTE | 2017-05-20 18:28 | NUR ---
PATIENT SITTING IN BED PLAYING MONOPOLY AT BEDSIDE WITH FAMILY MEMBERS. NO DISTRESS NOTED. COMPLAINTS OF 6/10 PAIN, NORCO GIVEN PER ORDERS. SAFETY MEASURES IN PLACE, CALL LIGHT WITHIN REACH. WILL CONTINUE TO MONITOR.
--- NOTE | 2017-05-20 19:40 | NUR ---
GAVE REPORT TO TISSUE INSERTER NURSE FOR CONTINUITY OF CARE. PATIENT IN STABLE CONDITION.
--- NOTE | 2017-05-20 19:40 | NUR ---
RECEIVED PATIENT LYING ON BED COMFORTABLE LISTENING MUSIC. EXPLAIN TO PATIENT THE PLAN OF CARE AND PATIENT VERBALIZED UNDERSTANDING. PATIENT IN LOW BED POSITION, CALL LIGHT WITHIN REACH. WILL CONTINUE TO MONITOR .
[2017-05-20 20:00] VITALS: BP 119/78
[2017-05-20] MEDS: ATORVASTATIN 20 MG TAB PO SCH (20:18)
[2017-05-20] MEDS: INSULIN LANTUS 100 UNITS/ML 10 ML VIAL SUBQ SCH (20:22)
--- NOTE | 2017-05-20 20:25 | NUR ---
BS TEST 320. GIVEN HUMULOG INSULIN SUBQ FOLLOWING PER PROTOCOL.
--- NOTE | 2017-05-21 00:05 | NUR ---
PATIENT SEEN RESTING ASLEEP ON BED EASILY AROUSABLE. BED IN LOW POSITION, CALL LIGHT WITHIN REACH. BED ALARM ON. WILL CONTINUE TO MONITOR.
[2017-05-21] MEDS: PIPER/TAZO 3.375GM/D5W PREMIX 50 ML IV SCH ×4 (00:13→17:51)
--- NOTE | 2017-05-21 03:00 | NUR ---
PATIENT RESTING IN BED,ASLEEP BUT EASILY AROUSABLE. BM X1 USING BEDSIDE COMMODE BED IN LOW POSITION, CALL LIGHT WITHIN REACH,BED ALARM ON. LEFT FOOT ELEVATED USING PILLOW FOR COMFORT, TOES SHOWING PINK COLOR. PATIENT NEEDS ATTENDED.
[2017-05-21] MEDS ORDERED: LIDOCAINE 2% 1000 MG/50 ML VIAL INJ ONE ×2 (05:05→06:53)
--- NOTE | 2017-05-21 05:05 | NUR ---
PATIENT SEEN COMFORTABLE LYING ON BED ASLEEP, EASILY AROUSABLE. FALL PRECAUTION IMPLEMENTED.
[2017-05-21] MEDS: BLOOD GLUCOSE MONITORING 1 DEV DEV FS SCH ×4 (06:00→21:42)
[2017-05-21] MEDS: INSULIN LISPRO SLIDING SCALE 100 UNITS/ML VIAL SUBQ PRN ×4 (06:05→21:43)
--- NOTE | 2017-05-21 06:20 | NUR ---
BS 243 FOLLOW PROTOCOL SLIDING SCALE SCHEDULE. PATIENT A0X4, USING BSC . PATIENT REMAIN STABLE.
[2017-05-21 06:38] LABS: BASOPHILS # (AUTO) 0.1 K/uL (0.00-0.22); BASOPHILS % (AUTO) 1.2 % (0.0-2.0); EOSINOPHILS # (AUTO) 0.4 K/uL (0-0.4); EOSINOPHILS % (AUTO) 6.9 % (0.0-4.0); HEMATOCRIT 27.4 % (36-48); HEMOGLOBIN 9.1 g/dL (12.0-16.0); LYMPHOCYTES # (AUTO) 1.3 K/uL (2.5-16.5); LYMPHOCYTES % (AUTO) 20.6 % (20.5-51.1); MEAN CORPUSCULAR HEMOGLOBIN 28 pg (27-31); MEAN CORPUSCULAR HGB CONC 33 g/dL (33-37); MEAN CORPUSCULAR VOLUME 85 fL (80-94); MONOCYTES # (AUTO) 0.5 K/uL (0.8-1.0); MONOCYTES % (AUTO) 8.6 % (1.7-9.3); NEUTROPHILS % (AUTO) 62.7 % (42.2-75.2); PLATELET COUNT (AUTO) 464 K/uL (140-450); RED BLOOD CELL COUNT(AUTO) 3.24 MIL/uL (4.20-5.40); RED CELL DISTRIBUTION WIDTH 13.4 % (11.6-13.7); WHITE BLOOD COUNT (AUTO) 6.3 K/uL (4.8-10.8)
--- NOTE | 2017-05-21 07:05 | NUR ---
ENDORSEMENT GIVEN TO THE DAY SHIFT NURSE. DAY NURSE NANCY NOTIFIED ABOUT THE THORACENTESIS TODAY @0700AM. TRAY AND BOTTLE LABELED READY WITH LIDOCAINE 2%. SEEN RADIOLOGIST IN THE PATIENT [place]. PATIENT IS STABLE AT THIS TIME
--- NOTE | 2017-05-21 07:06 | NUR ---
RECEIVED REPORT FROM ASSESSMENT COUNSELOR NURSE. PATIENT LYING DOWN IN BED SLEEPING, AROUSABLE BY VOICE. NO DISTRESS NOTED. DENIES ANY PAIN AT THIS TIME. AAOX4, CALM, COOPERATIVE, SKIN COLOR APPROPRIATE TO ETHNICITY, WARM TO TOUCH. DRESSING ON LEFT FOOT S/P I&D AND LEFT THIRD TOE AMPUTATION DRY AND INTACT. LUNGS CRACKLES HEARD ON LOWER LOBES. ABDOMEN SOFT, NON-DISTENDED. IV SITE INTACT, PATENT, AND ON SALINE LOCK. ALL US GUIDED THORACENTESIS MATERIALS ALREADY SET UP AT BEDSIDE. DR. TATE TO COME IN SOON TO PERFORM THORACENTESIS AT BEDSIDE. RADIOLOGIST ALREADY AT BEDSIDE AWAITING FOR DR. TATE TO ARRIVE. REVIEWED PLAN OF CARE WITH PATIENT. PATIENT VERBALIZED UNDERSTANDING. SAFETY MEASURES IN PLACE, CALL LIGHT WITHIN REACH, FALL PREVENTIONS IN PLACE. WILL CONTINUE TO MONITOR.
--- NOTE | 2017-05-21 07:10 | NUR ---
DR. TATE AT BEDSIDE READY TO PERFORM US GUIDED THORACENTESIS. ALL MATERIALS AT BEDSIDE AND RADIOLOGIST AT BEDSIDE READY TO PERFORM PROCEDURE. TIME OUT PROCEDURE LIST COMPLETED, CONSENTS VERIFIED. THORACENTESIS DONE ON LEFT LUNG PER DR. TATE RECOMMENDED. PROCEDURE COMPLETED ON 719 WITH 1100 ML PLEURAL FLUID DRAINED FROM LEFT LUNG. PATIENT TOLERATED PROCEDURE WELL. RESPIRATIONS EVEN, UNLABORED, ON ROOM AIR. SAFETY MEASURES IN PLACE, CALL LIGHT WITHIN REACH. WILL CONTINUE TO MONITOR.
[2017-05-21 07:29] LABS: ANION GAP 8.1 (8-16); CARBON DIOXIDE 29.8 mmol/L (21-32); CREATININE 1.1 mg/dL (0.6-1.3); POTASSIUM 3.9 mmol/L (3.5-5.1)
[2017-05-21 08:00] VITALS: BP 118/78
[2017-05-21 08:07] LABS: MAGNESIUM 1.4 mg/dL (1.8-2.4); PHOSPHORUS 4.1 mg/dL (2.5-4.9)
[2017-05-21 08:18] LABS: PROTHROMBIN TIME 10.8 secs (10.8-13.4)
[2017-05-21] MEDS: SENNA 8.6 MG TAB PO SCH (08:58)
[2017-05-21] MEDS: DOCUSATE 100 MG/10 ML UDC PO SCH (08:58)
[2017-05-21] MEDS: MAGNESIUM OXIDE 400 MG TAB PO SCH ×2 (08:58→21:39)
[2017-05-21] MEDS: HYDROcodone/APAP 5/325 MG 1 TAB TAB PO PRN ×2 (08:59→21:39)
[2017-05-21] MEDS: LACTOBACILLUS RHAMNOSUS GG 1 EACH CAP PO SCH (08:59)
[2017-05-21] MEDS: ASCORBIC ACID 500 MG TAB PO SCH (08:59)
[2017-05-21] MEDS: FERROUS SULFATE 325 MG TABEC PO SCH (08:59)
[2017-05-21] MEDS: FUROSEMIDE 20 MG/2 ML VIAL IVP SCH (09:00)
--- NOTE | 2017-05-21 09:10 | NUR ---
PATIENT LYING IN BED TALKING WITH MOTHER AT BEDSIDE. NO DISTRESS NOTED. COMPLAINS OF 6/10 PAIN, NORCO GIVEN. OTHER SCHEDULED MEDICATIONS DUE GIVEN. SAFETY MEASURES IN PLACE, CALL LIGHT WITHIN REACH. WILL CONTINUE TO MONITOR.
--- NOTE | 2017-05-21 10:45 | NUR ---
PATIENT SITTING IN BED READING A BOOK. NO DISTRESS NOTED. DENIES ANY PAIN AT THIS TIME. SAFETY MEASURES IN PLACE, CALL LIGHT WITHIN REACH. WILL CONTINUE TO MONITOR.
--- NOTE | 2017-05-21 12:13 | NUR ---
PATIENT SITTING IN BED WATCHING TV. LUNCH TRAY IN FRONT. NO DISTRESS NOTED. DENIES ANY PAIN AT THIS TIME. SCHEDULED MEDICATIONS DUE GIVEN. SAFETY MEASURES IN PLACE, CALL LIGHT WITHIN REACH. WILL CONTINUE TO MONITOR.
--- NOTE | 2017-05-21 15:25 | NUR ---
Social Service Note: Per , he is anticipating for patient to be discharged tomorrow or Monday. I called and spoke with Rossana from [facility] , , she stated their sister home health agency might be able to accept patient, however, she needs to speak with her community administrator first. I am not able to provide home health options to patient because there are not many home health agencies that accept [facility] patients, I contacted [facility] because they have accepted [facility] patients previously. I requested for Rossana to contact case management dept tomorrow and let them know if they can accept patient. Inquiry was faxed to [facility].
[2017-05-21 16:00] VITALS: BP 122/80
--- NOTE | 2017-05-21 16:39 | NUR ---
PATIENT SITTING IN BED LISTENING TO MUSIC ON PHONE. NO DISTRESS NOTED. DENIES ANY PAIN. CONDITION UNCHANGED. SAFETY MEASURES IN PLACE, CALL LIGHT WITHIN REACH. WILL CONTINUE TO MONITOR.
--- NOTE | 2017-05-21 18:30 | NUR ---
PATIENT SITTING IN BED WATCHING TV. NO DISTRESS NOTED. DENIES ANY PAIN. CONDITION UNCHANGED. SAFETY MEASURES IN PLACE, CALL LIGHT WITHIN REACH. WILL CONTINUE TO MONITOR.
--- NOTE | 2017-05-21 19:05 | NUR ---
GAVE REPORT TO FOUNDER AND CEO NURSE FOR CONTINUITY OF CARE. PATIENT IN STABLE CONDITION.
--- NOTE | 2017-05-21 19:10 | NUR ---
RECEIVED PT FROM NANCY CHANG PT IS AAOX4 USING BSC S/P LEFT FOOT THIRD TOE AMKPUTEE DRESSING DRY AND INTACT PINK COLOR LEFT FOOT TOES ON PILLOW ELEVATION HL ON RT FA PATENT RELATIVES AT BED SIDE INITIAL ASSESSMENT DONE
[2017-05-21 20:00] VITALS: BP 123/79
--- NOTE | 2017-05-21 21:30 | NUR ---
BLOOD SUGAR TEST 247 COVERAGE WITH 9 UNITS SUBQ HUMALOG FOLLOWING PROTOCOL
[2017-05-21] MEDS: ATORVASTATIN 20 MG TAB PO SCH (21:38)
[2017-05-21] MEDS: INSULIN LANTUS 100 UNITS/ML 10 ML VIAL SUBQ SCH (21:45)
[2017-05-22] VITALS: BP 103/66
--- NOTE | 2017-05-22 | NUR ---
AFTER PAIN MEDIC GIVEN PT SLEEP QUIET NOT SIGNS OF PAIN
[2017-05-22] MEDS: PIPER/TAZO 3.375GM/D5W PREMIX 50 ML IV SCH ×4 (00:14→18:26)
--- NOTE | 2017-05-22 02:00 | NUR ---
PT USING BSC VOIDING WELL YELLOW URINE NOT DISTRESS NOTED
[2017-05-22 04:00] VITALS: BP 110/66
--- NOTE | 2017-05-22 04:00 | NUR ---
PT SLEEPING WELL DENIES ANY PAIN LEFT FOOT ON PILLOW ELEVATION NOT DISTRESS NOTED
[2017-05-22] MEDS: BLOOD GLUCOSE MONITORING 1 DEV DEV FS SCH ×4 (06:03→20:58)
[2017-05-22] MEDS: INSULIN LISPRO SLIDING SCALE 100 UNITS/ML VIAL SUBQ PRN ×4 (06:04→20:51)
--- NOTE | 2017-05-22 06:11 | NUR ---
PT VOIDING WELL DENIES ANY PAIN OR DISCOMFORT, BLOOD SUGAR 250 COVERAGE WITH 9 UNITS SUBQ HUMALOG FOLLOWING PROTOCOL
[2017-05-22 06:37] LABS: BASOPHILS # (AUTO) 0.1 K/uL (0.00-0.22); BASOPHILS % (AUTO) 1.6 % (0.0-2.0); EOSINOPHILS # (AUTO) 0.4 K/uL (0-0.4); EOSINOPHILS % (AUTO) 5.4 % (0.0-4.0); HEMATOCRIT 27.5 % (36-48); HEMOGLOBIN 9.2 g/dL (12.0-16.0); LYMPHOCYTES # (AUTO) 1.3 K/uL (2.5-16.5); LYMPHOCYTES % (AUTO) 18.7 % (20.5-51.1); MEAN CORPUSCULAR HEMOGLOBIN 28 pg (27-31); MEAN CORPUSCULAR HGB CONC 33 g/dL (33-37); MEAN CORPUSCULAR VOLUME 84 fL (80-94); MONOCYTES # (AUTO) 0.6 K/uL (0.8-1.0); MONOCYTES % (AUTO) 8.9 % (1.7-9.3); NEUTROPHILS # (AUTO) 4.6 K/uL (1.8-7.7); NEUTROPHILS % (AUTO) 65.4 % (42.2-75.2); PLATELET COUNT (AUTO) 479 K/uL (140-450); RED BLOOD CELL COUNT(AUTO) 3.28 MIL/uL (4.20-5.40); RED CELL DISTRIBUTION WIDTH 13.1 % (11.6-13.7)
[2017-05-22 06:58] LABS: ANION GAP 9.1 (8-16); CARBON DIOXIDE 31.5 mmol/L (21-32); CREATININE 1.4 mg/dL (0.6-1.3); POTASSIUM 4.6 mmol/L (3.5-5.1)
[2017-05-22 07:10] LABS: MAGNESIUM 1.6 mg/dL (1.8-2.4); PHOSPHORUS 3.8 mg/dL (2.5-4.9)
--- NOTE | 2017-05-22 07:15 | NUR ---
RECEIVED REPORT FROM CAMPUS SUPERVISOR RN. PATIENT IS AAOX4, NO SIGNS AND SYMPTOMS OF ACUTE DISTRESS NOTED AT THIS TIME. PATIENT HAS IV TO RIGHT FA 22, ON HEP LOCK AT THIS TIME. PATIENT HAS DRESSING ON LEFT FOOT FOR STATUS POST DEBRIDEMENT ON BOTTOM OF FOOT AND THIRD TOE AMPUTATION. BEDSIDE COMMODE IS PRESENT. DISCUSSED PLAN OF CARE WITH PATIENT AND SHE VERBALIZED UNDERSTAND. BED IN LOWEST POSITION, SIDE RAILS UP X2, CALL LIGHT PLACED WITHIN REACH. WILL CONTINUE TO MONITOR.
[2017-05-22 08:00] VITALS: BP 100/66
[2017-05-22] MEDS: MAGNESIUM OXIDE 400 MG TAB PO SCH ×2 (08:32→20:56)
[2017-05-22] MEDS: FERROUS SULFATE 325 MG TABEC PO SCH (08:32)
[2017-05-22] MEDS: LACTOBACILLUS RHAMNOSUS GG 1 EACH CAP PO SCH (08:32)
[2017-05-22] MEDS: ASCORBIC ACID 500 MG TAB PO SCH (08:32)
[2017-05-22] MEDS: SENNA 8.6 MG TAB PO SCH (08:33)
[2017-05-22] MEDS: DOCUSATE 100 MG/10 ML UDC PO SCH (08:33)
[2017-05-22] MEDS ORDERED: MAGNESIUM OXIDE 400 MG TAB PO SCH (09:00)
[2017-05-22] MEDS: FUROSEMIDE 20 MG/2 ML VIAL IVP SCH (09:00)
--- NOTE | 2017-05-22 10:29 | NUR ---
CM NOTE PATIENT INFORMATION FAXED TO [facility]. FWW / FAX# [phone], ATTN: KAREN [phone]
--- NOTE | 2017-05-22 13:55 | NUR ---
FNS CONSULT RECEIVED 05/21/17 FOR MALNUTRITION. PLEASE REFER TO RD ASSESSMENTS (INITIAL AND FOLLOW UP) UNDER CARE ACTIVITY FOR ESTIMATED NUTRIENT NEEDS AND RECOMMENDATIONS. PATIENT WITH GOOD APPETITE, NO NAUSEA/VOMITING/DIARRHEA. PATIENT IS CONSUMING 75-100% FOR PAST 12 MEALS WITH AN AVERAGE INTAKE OF 98%. THIS IS PROVIDING 1886 KCAL AND 78 GM PROTEIN TO MEET 100% OF PATIENT ESTIMATED KCAL AND PROTEIN NEEDS. RD PROVIDED PATIENT WITH DM DIET EDUCATION. PLEASE REFER TO FNS TEACHING RECORD. PATIENT IS NOT AT HIGH RISK FOR MALNUTRITION. SWATHI ELIZALDE RD
--- NOTE | 2017-05-22 14:35 | NUR ---
CM NOTE REVIEW DONE
--- NOTE | 2017-05-22 15:25 | NUR ---
ULTRASOUND DONE AT THE BEDSIDE BY DR. SCHULTZ RADIOLOGIST, STATED THERE IS NOT MUCH FLUID TO DRAIN. THORACENTESIS CANCELLED BY DR. SCHULTZ. MAYKEL NURSE ASSIGNED AND DR. CHARLES NOTIFIED.
[2017-05-22 16:00] VITALS: BP 91/57
--- NOTE | 2017-05-22 19:15 | NUR ---
RECEIVED REPORT FROM DAY SHIFT NURSE. AAOX4. NO C/O PAIN. NO RESP DISTRESS NOTED. DRESSING TO LEFT FOOT CLEAN, DRY AND INTACT. IV TO RIGHT HAND #22G, PATENT AND INTACT. DISCUSSED PPLAN OF CARE, PT VERBLAIZED UNDERSTANDING. SAFETY PRECAUTION IN PLACE. CALL LIGHT WITHIN REACH. WILL CONTINUE TO MONITOR.
--- NOTE | 2017-05-22 19:39 | NUR ---
ENDORSED PATIENT TO SENIOR PRODUCT CONSULTANT NURSE FOR CONTINUITY OF CARE. PATIENT IN STABLE CONDITION.
[2017-05-22] MEDS: INSULIN LANTUS 100 UNITS/ML 10 ML VIAL SUBQ SCH (20:53)
[2017-05-22] MEDS: ATORVASTATIN 20 MG TAB PO SCH (20:56)
--- NOTE | 2017-05-22 21:00 | NUR ---
PT ASKED FOR SNACK. SNACK PROVIDED. NO C/O PAIN OR DISCOMFORT.
--- NOTE | 2017-05-22 23:30 | NUR ---
PT SLEEPING BUT EASILY AROUSABLE. NO C/O PAIN OR DISCOMFORT. CALL LIGHT WITHIN REACH.
[2017-05-23] VITALS: BP 115/74
[2017-05-23] MEDS: PIPER/TAZO 3.375GM/D5W PREMIX 50 ML IV SCH ×3 (00:44→12:06)
--- NOTE | 2017-05-23 02:15 | NUR ---
PT IN BED, AWAKE. NO C/O PAIN. PT KEPT COMFORTABLE. SAFETY PRECAUTION IN PLACE. CALL LIGHT WITHIN REACH.
--- NOTE | 2017-05-23 04:30 | NUR ---
PT SLEEPING. NO S/S OF DISTRESS. SAFETY PRECAUTION IN PLACE.
[2017-05-23 06:31] LABS: BASOPHILS # (AUTO) 0.1 K/uL (0.00-0.22); BASOPHILS % (AUTO) 1.8 % (0.0-2.0); EOSINOPHILS # (AUTO) 0.4 K/uL (0-0.4); EOSINOPHILS % (AUTO) 5.6 % (0.0-4.0); HEMATOCRIT 29.6 % (36-48); HEMOGLOBIN 9.6 g/dL (12.0-16.0); LYMPHOCYTES # (AUTO) 1.4 K/uL (2.5-16.5); LYMPHOCYTES % (AUTO) 19.4 % (20.5-51.1); MEAN CORPUSCULAR HEMOGLOBIN 28 pg (27-31); MEAN CORPUSCULAR HGB CONC 33 g/dL (33-37); MEAN CORPUSCULAR VOLUME 86 fL (80-94); MONOCYTES # (AUTO) 0.6 K/uL (0.8-1.0); MONOCYTES % (AUTO) 8.6 % (1.7-9.3); NEUTROPHILS # (AUTO) 4.7 K/uL (1.8-7.7); NEUTROPHILS % (AUTO) 64.6 % (42.2-75.2); PLATELET COUNT (AUTO) 470 K/uL (140-450); RED BLOOD CELL COUNT(AUTO) 3.46 MIL/uL (4.20-5.40); RED CELL DISTRIBUTION WIDTH 13.9 % (11.6-13.7); WHITE BLOOD COUNT (AUTO) 7.2 K/uL (4.8-10.8)
[2017-05-23] MEDS: BLOOD GLUCOSE MONITORING 1 DEV DEV FS SCH ×2 (06:31→11:46)
[2017-05-23] MEDS: INSULIN LISPRO SLIDING SCALE 100 UNITS/ML VIAL SUBQ PRN ×2 (06:33→12:10)
[2017-05-23 06:49] LABS: ANION GAP 8.4 (8-16); CARBON DIOXIDE 31.1 mmol/L (21-32); CREATININE 0.9 mg/dL (0.6-1.3); POTASSIUM 4.5 mmol/L (3.5-5.1)
[2017-05-23 06:56] LABS: ALBUMIN 1.5 g/dL (3.4-5.0); MAGNESIUM 1.5 mg/dL (1.8-2.4); PHOSPHORUS 3.9 mg/dL (2.5-4.9)
--- NOTE | 2017-05-23 07:05 | NUR ---
ENDORSED PT TO DAY SHIFT NURSE. PT IN STABLE CONDITION
--- NOTE | 2017-05-23 07:06 | NUR ---
RECEIVED REPORT FROM REINSPECTOR RN. PATIENT IS AAOX4, NO SIGNS AND SYMPTOMS OF ACUTE DISTRESS NOTED AT THIS TIME. PATIENT HAS IV TO RIGHT HAND 22G, ON HEP LOCK AT THIS TIME. PATIENT HAS DRESSING ON LEFT FOOT FOR STATUS POST DEBRIDEMENT ON BOTTOM OF FOOT AND THIRD TOE AMPUTATION. BEDSIDE COMMODE IS PRESENT. DISCUSSED PLAN OF CARE WITH PATIENT AND SHE VERBALIZED UNDERSTAND. BED IN LOWEST POSITION, SIDE RAILS UP X2, CALL LIGHT PLACED WITHIN REACH. WILL CONTINUE TO MONITOR.
[2017-05-23 08:00] VITALS: BP 116/65
[2017-05-23] MEDS: ASCORBIC ACID 500 MG TAB PO SCH (08:46)
[2017-05-23] MEDS: DOCUSATE 100 MG/10 ML UDC PO SCH (08:46)
[2017-05-23] MEDS: SENNA 8.6 MG TAB PO SCH (08:47)
[2017-05-23] MEDS: MAGNESIUM OXIDE 400 MG TAB PO SCH (08:47)
[2017-05-23] MEDS: LACTOBACILLUS RHAMNOSUS GG 1 EACH CAP PO SCH (08:47)
[2017-05-23] MEDS: FUROSEMIDE 20 MG/2 ML VIAL IVP SCH (08:47)
[2017-05-23] MEDS: FERROUS SULFATE 325 MG TABEC PO SCH (08:47)
--- NOTE | 2017-05-23 11:30 | NUR ---
ORDER FOR HOME HEALTH FOR DRESSING CHANGES. CALLED [facility] UNABLE TO TAKE PATIENT. CALLED [facility], THEY DO NOT TAKE MEDICAL CALLED [facility], THEY DO NOT TAKE MEDICAL. CALLED [facility] AND SPOKE WITH PATRICK PHONE [phone] THEY DO TAKE MEDICAL FAXED INQUIRY TO HER WITH THE ORDER TO [phone].
--- NOTE | 2017-05-23 12:23 | NUR ---
RECEIVED A CALL FROM DEJA FROM [facility], . SHE SAID THAT THEY HAD ALREADY ACCEPTED THE PATIENT YESTERDAY. THEY HAVE THE ORDER FOR THE WOUND CARE AND THEY WILL START WHEN THE PATIENT IS DISCHARGED. I CALLED [facility] AND CANCELLED THEM FOR THIS PATIENT.
[2017-05-23] MEDS ORDERED: CLIN300C2 PO ×2 (13:17→13:34)
[2017-05-23] MEDS ORDERED: INSU100S22 SUBQ (13:17)
[2017-05-23] MEDS ORDERED: LACT1.4C PO (13:17)
[2017-05-23] MEDS ORDERED: CLIN300C2 PEG (13:28)
[2017-05-23] MEDS ORDERED: ASPI-1677 PO (14:13)
[2017-05-23] MEDS ORDERED: ATOR20TA PO (14:13)
[2017-05-23] MEDS ORDERED: FURO-572 PO (14:13)
[2017-05-23] MEDS ORDERED: MAG SULF 2000 MG/WATER PREMIX 50 ML IV SCH (14:18)
--- NOTE | 2017-05-23 14:35 | NUR ---
DISCHARGE ORDER IS IN PLACE. GAVE PATIENT INSTRUCTIONS ON WHEN AND WHERE TO FOLLOW UP, INFORMED HER THAT SHE HAS PRESCRIPTIONS. EDUCATED HER ON SIGNS AND SYMPTOMS OF INFECTION, DIABETIC FOOT CARE, AND WHEN TO SEEK EMERGENCY MEDICAL ATTENTION. SHE VERBALIZED UNDERSTANDING. PATIENT HAS NO SIGNS AND SYMPTOMS OF ACUTE DISTRESS AT THIS TIME. REMOVED IV FROM SITE AT THIS TIME. CATHETER INTACT. PATIENT HAS ALL HER BELONGINGS WITH HER. TAKING A WALKER THAT WAS BROUGHT TO HER, AND WOUND CARE SUPPLIES THAT WE PROVIDED. WILL WALK OUT WITH PATIENT.
== END 2017-05-23 14:35 | disposition home health service (06) | DRG 710 ==
LOC: MED 12:48 → MTU 16:27
PROVIDERS: ADMIT Family Medicine Sports Medicine; ATTEND Family Medicine Sports Medicine
PROC: 0W993ZZ Drainage of Right Pleural Cavity, Percutaneous Approach (ICD-10-PCS; 2017-05-16)
PROC: 0W9B3ZZ Drainage of Left Pleural Cavity, Percutaneous Approach (ICD-10-PCS; 2017-05-16)
PROC: 0Y9N0ZZ Drainage of Left Foot, Open Approach (ICD-10-PCS; 2017-05-16)
PROC: 0JBR0ZZ Excision of Left Foot Subcutaneous Tissue and Fascia, Open Approach (ICD-10-PCS; 2017-05-16)
PROC: 3E0234Z Introduction of Serum, Toxoid and Vaccine into Muscle, Percutaneous Approach (ICD-10-PCS; 2017-05-16)
PROC: 0Y6U0Z3 Detachment at Left 3rd Toe, Low, Open Approach (ICD-10-PCS; principal; 2017-05-16 12:30)
DX: A41.9 Sepsis, unspecified organism (principal); N17.0 Acute kidney failure with tubular necrosis; E43 Unspecified severe protein-calorie malnutrition; E11.10 Type 2 diabetes mellitus with ketoacidosis without coma; J18.9 Pneumonia, unspecified organism; J90 Pleural effusion, not elsewhere classified; A48.0 Gas gangrene; E11.621 Type 2 diabetes mellitus with foot ulcer; I11.0 Hypertensive heart disease with heart failure; I50.9 Heart failure, unspecified; D68.69 Other thrombophilia; E11.65 Type 2 diabetes mellitus with hyperglycemia; E11.69 Type 2 diabetes mellitus with other specified complication; F15.10 Other stimulant abuse, uncomplicated; L03.116 Cellulitis of left lower limb; L97.529 Non-pressure chronic ulcer of other part of left foot with unspecified severity; D64.9 Anemia, unspecified; M86.8X8 Other osteomyelitis, other site; E87.1 Hypo-osmolality and hyponatremia; E87.8 Other disorders of electrolyte and fluid balance, not elsewhere classified; L03.90 Cellulitis, unspecified; L97.509 Non-pressure chronic ulcer of other part of unspecified foot with unspecified severity; L84 Corns and callosities; E83.42 Hypomagnesemia; Z88.0 Allergy status to penicillin; Z89.422 Acquired absence of other left toe(s); Z90.49 Acquired absence of other specified parts of digestive tract; Z23 Encounter for immunization; Z68.28 Body mass index [BMI] 28.0-28.9, adult
CPT/HCPCS: 36415; 71045; 73630; 76604; 76770; 76942; 80048; 80053; 80305; 81001; 82040; 82150; 82550; 82553; 82948; 83036; 83540; 83605; 83690; 83735; 83874; 83880; 84100; 84155; 84484; 85025; 85610; 85730; 87040; 87070; 87075; 87081; 87086; 87205; 90471; 90715; 93005; 93970; 96361; 96365; 96375; 97110; 97116; 97140; 97530; 99285; C1758; J0780; J1815; J1940; J2001; J2250; J2270; J2543; J2704; J3010; J3370; J3475; J3490; J7030; J7060; Q0092

== ENCOUNTER 2017-06-08 03:45 | Inpatient (IN) | payer MEDICAID ==
[~2017-06-08] VITALS: Ht 170.2 cm; Wt 79.8 kg
[~2017-06-08 03:45] MED LIST changes: +ASPI-1677 PO; +ATOR20TA PO; +CLIN300C2 PO; +FURO-572 PO; -INSU100I7 SQ; +INSU100S22 SUBQ; +LACT1.4C PO; -LEVO750T2 PO
[2017-06-08 03:47] VITALS: BP 134/88
--- NOTE | 2017-06-08 03:47 | NUR ---
patient to bed [address] amezcua assessing patient
--- NOTE | 2017-06-08 03:48 | NUR ---
PATIENT PRESENTS TO ED WITH abdominal pain and nausea x1 hour. PT denies vomiting/diarrhea; SKIN IS PINK/WARM/DRY; AAOX4 WITH EVEN AND STEADY GAIT; LUNGS CLEAR BL; HR EVEN AND REGULAR; PT DENIES ANY FEVER, CP, SOB, OR COUGH AT THIS TIME; PATIENT STATES PAIN OF 8/10 AT THIS TIME; VSS; PATIENT POSITIONED FOR COMFORT; HOB ELEVATED; BEDRAILS UP X1; BED DOWN. ER MD MADE AWARE OF PT STATUS.
[2017-06-08 04:18] LABS: BASOPHILS % (AUTO) 0.8 % (0.0-2.0); EOSINOPHILS # (AUTO) 0.5 K/uL (0-0.4); EOSINOPHILS % (AUTO) 9.7 % (0.0-4.0); HEMATOCRIT 28.8 % (36-48); HEMOGLOBIN 9.4 g/dL (12.0-16.0); LYMPHOCYTES # (AUTO) 1.4 K/uL (2.5-16.5); LYMPHOCYTES % (AUTO) 30.5 % (20.5-51.1); MEAN CORPUSCULAR HEMOGLOBIN 28 pg (27-31); MEAN CORPUSCULAR HGB CONC 33 g/dL (33-37); MEAN CORPUSCULAR VOLUME 85.3 fL (80-94); MONOCYTES # (AUTO) 0.4 K/uL (0.8-1.0); MONOCYTES % (AUTO) 9.4 % (1.7-9.3); NEUTROPHILS # (AUTO) 2.3 K/uL (1.8-7.7); NEUTROPHILS % (AUTO) 49.6 % (42.2-75.2); PLATELET COUNT (AUTO) 262 K/uL (140-450); RED BLOOD CELL COUNT(AUTO) 3.38 MIL/uL (4.20-5.40); RED CELL DISTRIBUTION WIDTH 15.2 % (11.6-13.7); WHITE BLOOD COUNT (AUTO) 4.7 K/uL (4.8-10.8)
[2017-06-08 04:18] LABS: APPEARANCE,URINE CLEAR (CLEAR); BILIRUBIN,URINE NEGATIVE (NEGATIVE); BLOOD, URINE 2+ (NEGATIVE); COLOR,URINE YELLOW (YELLOW); LEUKOCYTE ESTERASE ,URINE NEGATIVE (NEGATIVE); NITRITE, URINE NEGATIVE (NEGATIVE); UGLUCOSE NEGATIVE (NEGATIVE)
[2017-06-08 04:28] LABS: ANION GAP 9.8 (8-16); CARBON DIOXIDE 27.8 mmol/L (21-32); CREATININE 0.9 mg/dL (0.6-1.3); POTASSIUM 4.6 mmol/L (3.5-5.1)
[2017-06-08 04:35] LABS: RBC,URINE 3-10 (FEW) /HPF (0-5); WBC,URINE 0-5 (RARE) /HPF (0-5)
[2017-06-08 04:42] LABS: ALBUMIN 2.7 g/dL (3.4-5.0); THYROID STIMULATING HORMONE 9.62 uIU/mL (0.34-3.74); TOTAL BILIRUBIN 0.2 mg/dL (0.0-1.0)
--- NOTE | 2017-06-08 06:09 | NUR ---
Patient appears to be resting comfortably in bed. Vital Signs within normal limits. Respirations even and unlabored.
[2017-06-08] MEDS ORDERED: NACL 0.9% 1,000 ML IV SCH (06:34)
[2017-06-08] MEDS ORDERED: ONDANSETRON 4 MG/2 ML VIAL IM/IVP PRN (06:35)
[2017-06-08] MEDS ORDERED: DOCUSATE SODIUM 100 MG GELCAP PO PRN (06:35)
[2017-06-08] MEDS ORDERED: cefTRIAXone 1,000 MG VIAL ONE (06:36)
[2017-06-08] MEDS ORDERED: LEVOTHYROXINE 200 MCG VIAL IV ONE ×2 (06:40→09:00)
--- NOTE | 2017-06-08 06:41 | NUR ---
PER DONTRELL ABDI BLOOD CULTURES NOT NEEDED Addendum: 06/08/[address] OLSON
[2017-06-08] MEDS ORDERED: MORPHINE SULFATE 4 MG/ML SYR IVP ONE (06:55)
--- NOTE | 2017-06-08 07:11 | NUR ---
Pt report given to PARVIZ CHANG. Transfer of care at this time.
--- NOTE | 2017-06-08 07:15 | NUR ---
RECEIVED REPORT FROM BERNARDO ENNIS FROM ER, PT IS AAOX4, PT HAS IV ON HER LEFT FA, PATENT, INTACT, FLUSHING WELL, PT IS S/P LEFT FOOT, MIDDLE TOE AMPUTATION ON 05/2017, FOOT IS CURRENTLY WRAPPED WITH DRESSING, NO S/S OF RESPIRATORY DISTRESS NOTED, PT COMPLAINING OF 8/10 ABDOMINAL PAIN, ORIENTED PT TO ROOM, DISCUSSED PLAN OF CARE WITH PT, PT VERBALIZED UNDERSTANDING, SAFETY/FALL PRECAUTIONS ARE IN PLACE, CALL LIGHT IS WITHIN REACH, WILL CONTINUE TO MONITOR.
[2017-06-08 07:16] LABS: BARBITURATE, URINE NEG. ng/ml (NEG <=200); BENZODIAZEPINE, URINE NEG. ng/mL (NEG <=200); CANNABINOID, URINE NEG. ng/mL (NEG <=50); COCAINE, URINE NEG. ng/mL (NEG <=300); OPIATE, URINE NEG. ng/mL (NEG <=2000); PHENCYCLIDINE SCREEN,URINE NEG. ng/mL (NEG <=25)
--- NOTE | 2017-06-08 07:30 | NUR ---
PT IS AWAKE LYING ON THE BED, VITAL SIGNS TAKEN. CALL LIGHT WITHIN REACH. NO ABNORMALITIES NOTED AT THIS TIME. WILL CONTINUE TO MONITOR.
[2017-06-08 07:39] LABS: MAGNESIUM 1.9 mg/dL (1.8-2.4); PHOSPHORUS 5.2 mg/dL (2.5-4.9)
--- NOTE | 2017-06-08 07:51 | NUR ---
PT IS LYING ON THE BED, VERBALIZED PAIN AT A RATE OF 8/10. MEDICATED WITH MORPHINE. MADE COMFORTABLE ON THE BED. CALL LIGHT WITHIN REACH. NO OTHER UNTOWARD SIGNS NOTED AT THIS TIME. WILL CONTINUE TO MONITOR.
[2017-06-08 08:00] VITALS: BP 135/88
--- NOTE | 2017-06-08 10:00 | NUR ---
PT IS COMFORTABLY LYING ON THE BED. NO UNTOWARD SIGNS NOTED AT THIS TIME. CALL LIGHT WITHIN REACH. WILL CONTINUE TO MONITOR.
--- NOTE | 2017-06-08 10:34 | NUR ---
PATIENT HAS BEEN SCREENED AND CATEGORIZED MODERATE NUTRITION RISK. PATIENT WILL BE SEEN WITHIN 3-5 DAYS OF ADMISSION. 06/10/17 - 06/12/[address]
[2017-06-08] MEDS ORDERED: LEVO750T2 PO (11:57)
[2017-06-08] MEDS ORDERED: DEXTROSE 50% 50 ML SYR IVP PRN (12:35)
[2017-06-08] MEDS: GABAPENTIN 100 MG CAP PO SCH ×2 (14:02→17:02)
[2017-06-08] MEDS: LEVOFLOXACIN 750 MG/D5W PREMIX 150 ML IV SCH (14:03)
--- NOTE | 2017-06-08 14:03 | NUR ---
PT IS ASLEEP ON THE BED, WOKE HER UP AND GAVE MEDICATIONS. STARTED ON LEVAQUIN IV PIGGYBACK AT 100ML/HR. PT TOLERATED. ALL NEEDS ARE MET AT THIS TIME. CALL LIGHT WITHIN REACH. WILL CONTINUE TO MONITOR.
--- NOTE | 2017-06-08 14:15 | NUR ---
PATIENT'S LEFT FOOT DRESSING CHANGED AT THIS TIME, PT TOLERATED WELL, CALL LIGHT WITHIN REACH.
[2017-06-08 16:00] VITALS: BP 118/79
[2017-06-08] MEDS ORDERED: LACTOBACILLUS RHAMNOSUS GG 1 EACH CAP PO SCH (17:00)
[2017-06-08] MEDS: INSULIN LISPRO SLIDING SCALE 100 UNITS/ML VIAL SUBQ PRN (17:11)
[2017-06-08] MEDS: BLOOD GLUCOSE MONITORING 1 DEV DEV FS SCH ×2 (17:12→20:33)
--- NOTE | 2017-06-08 17:12 | NUR ---
PT IS AWAKE LYING ON THE BED, BLOOD GLUCOSE CHECKED DONE RESULT REVEALED 182, GAVE 2UNITS OF HUMALOG IN UPPER ARM, SUBQ. OTHER MEDICATIONS GIVEN ALSO. NO UNTOWARD SIGNS NOTED AT THIS TIME. CALL LIGHT WITHIN REACH. WILL CONTINUE TO MONITOR.
[2017-06-08] MEDS: ACETAMINOPHEN 325 MG TAB PO PRN (17:54)
--- NOTE | 2017-06-08 19:24 | NUR ---
ENDORSED PT TO HUMAN RESOURCES EXECUTIVE NURSE, MELYSSA, FOR CONTINUITY OF CARE. PT IS STABLE AT THIS TIME.
--- NOTE | 2017-06-08 19:25 | NUR ---
RECEIVED PT FROM DAY SHIFT NURSE PARVIZ-BERNARDO. AOX4, ON ROOM AIR, WITH LEFT HAND #22G SALINE LOCK. PT A HARD STICK. PT RESTING IN BED. INTRODUCED MYSELF, UPDATED WHITE BOARD AND DISCUSSED PLAN OF CARE WITH PT. PT VERBALIZED UNDERSTANDING. S/P LEFT FOOT, MIDDLE TOE AMPUTATION AND SOLE OF FOOT SURGICAL INCISION ON 05/2017. AMBULATORY WITH ASSIST. EDUCATED PT ON HOW TO USE CALL LIGHT AND TO USE IT BEFORE GETTING OUT OF BED. [facility]. LBM 06/08 @0400. NO S/S OF RESPIRATORY DISTRESS AT THIS TIME. BED IN LOWEST POSITION. CALL LIGHT WITHIN REACH. WILL CONTINUE TO MONITOR.
[2017-06-08 20:00] VITALS: BP 145/84
[2017-06-08] MEDS: FUROSEMIDE 20 MG/2 ML VIAL IVP SCH (20:40)
--- NOTE | 2017-06-08 20:40 | NUR ---
SCHEDULED MEDICATIONS GIVEN. SPOKE WITH DR. CAPUTO ABOUT LANTUS 40 UNITS IF IT WAS OKAY TO ADMINISTER DUE TO BLOOD GLUCOSE LEVELS BEING 130. SHE SAID IT WAS SAFE TO ADMINISTER SINCE IT IS A LONG ACTING INSULIN. INSULIN ADMINISTERED. PT REQUESTED SNACK BEFORE BED. SNACK GIVEN ALONG WITH A CHICKEN SANDWICH SINCE SHE SAID THAT WOULDN'T BE ENOUGH TO KEEP HER BLOOD SUGAR WITHIN NORMAL RANGE. WILL CONTINUE TO MONITOR.
[2017-06-08] MEDS ORDERED: ATORVASTATIN 20 MG TAB PO SCH (21:00)
[2017-06-08] MEDS ORDERED: INSULIN LANTUS 100 UNITS/ML 10 ML VIAL SUBQ SCH (21:00)
--- NOTE | 2017-06-08 23:15 | NUR ---
PT RESTING IN BED. REQUESTED EAR PHONES HOWEVER WE DO NOT CARRY THEM TOLD BY SOCIAL SERVICES COORDINATOR BOBBY. PT STATED SHE IS BEGINNING TO HAVE DULL PAIN 3/10 AND WOULD WANT TO HAVE HER NEXT DOSE OF TYLENOL WHEN AVAILABLE. WILL CONTINUE TO MONITOR.
[2017-06-09] VITALS: BP 145/84
[2017-06-09] MEDS: ACETAMINOPHEN 325 MG TAB PO PRN (00:44)
--- NOTE | 2017-06-09 00:45 | NUR ---
PT REQUESTED PAIN MEDICATION. PAIN 05/13. TYLENOL GIVEN AND TOLERATED WELL. WILL CONTINUE TO MONITOR.
--- NOTE | 2017-06-09 02:39 | NUR ---
PT SLEEPING AT THIS TIME. WILL CONTINUE TO MONITOR.
[2017-06-09] MEDS ORDERED: MORPHINE SULFATE 4 MG/ML SYR IVP SCH (04:15)
--- NOTE | 2017-06-09 04:17 | NUR ---
PT C/O BACK PAIN AND ABDOMINAL PAIN 10/13. THERE ARE NO PAIN MEDS AVAILABLE TO GIVE AT THIS TIME. TYLENOL WAS ALREADY GIVEN AND IS NOT TIME YET FOR ANOTHER DOSE. CALLED DR. CAPUTO AND SHE SAID SHE WOULD PUT IN AN ORDER FOR MORPHINE SULFATE SINGLE DOSE WELL COME SEE THE PT AFTERWARDS.
[2017-06-09] MEDS: BLOOD GLUCOSE MONITORING 1 DEV DEV FS SCH ×2 (05:45→11:57)
[2017-06-09] MEDS: INSULIN LISPRO SLIDING SCALE 100 UNITS/ML VIAL SUBQ PRN ×2 (05:50→12:27)
--- NOTE | 2017-06-09 05:50 | NUR ---
BLOOD GLUCOSE 188. 2 UNITS OF HUMALOG GIVEN PER SLIDING SCALE. PT TOLERATED WELL. SNACKS PROVIDED REQUESTED. WILL CONTINUE TO MONITOR.
[2017-06-09 06:23] LABS: HEPATITIS A ANTIBODY IGM Negative (Negative); HEPATITIS B CORE AB TOTAL Negative (Negative); HEPATITIS B SURFACE ANTIBODY Non Reactive (.); HEPATITIS B SURFACE ANTIGEN Negative (Negative); T4 (THYROXINE) 6.9 ug/dL (4.5-12.0)
--- NOTE | 2017-06-09 07:10 | NUR ---
ENDORSED PT TO DAY SHIFT NURSE ALMA TO CONTINUE PT CARE. PT STABLE AT THIS TIME.
--- NOTE | 2017-06-09 07:11 | NUR ---
RECEIVED REPORT FROM FULL STACK PYTHON DEVELOPER NURSE AT BEDSIDE FOR CONTINUITY OF CARE . PATIENT STABLE. PATIENT RESTING IN BED WITH EYES CLOSED. RESP EVEN AND UNLABORED. IV SITE TO LEFT HAND 24G TKO. VISIBLE DRESSING TO LEFT FOOT INTACT AND INPLACE.
[2017-06-09 07:24] LABS: BASOPHILS % (AUTO) 0.6 % (0.0-2.0); EOSINOPHILS # (AUTO) 0.3 K/uL (0-0.4); EOSINOPHILS % (AUTO) 8.2 % (0.0-4.0); HEMATOCRIT 29.1 % (36-48); HEMOGLOBIN 9.5 g/dL (12.0-16.0); LYMPHOCYTES # (AUTO) 1.4 K/uL (2.5-16.5); LYMPHOCYTES % (AUTO) 34.7 % (20.5-51.1); MEAN CORPUSCULAR HEMOGLOBIN 28 pg (27-31); MEAN CORPUSCULAR HGB CONC 33 g/dL (33-37); MEAN CORPUSCULAR VOLUME 85.4 fL (80-94); MONOCYTES # (AUTO) 0.4 K/uL (0.8-1.0); MONOCYTES % (AUTO) 9.5 % (1.7-9.3); NEUTROPHILS # (AUTO) 1.9 K/uL (1.8-7.7); PLATELET COUNT (AUTO) 195 K/uL (140-450); RED BLOOD CELL COUNT(AUTO) 3.41 MIL/uL (4.20-5.40); RED CELL DISTRIBUTION WIDTH 15.3 % (11.6-13.7)
[2017-06-09 08:00] VITALS: BP 124/82
--- NOTE | 2017-06-09 08:00 | NUR ---
INITIAL ASSESSMENT PERFORMED. PATIENT ALERT AND ABLE TO VERBALIZE NEEDS. NO ACUTE DISTRESS. RESP EVEN AND UNLABORED. PATIENT LUNG SOUNDS CLEAR. BOWEL SOUNDS ACTIVE. PATIENT WITH IV TO LEFT HAND 24G WITH KVO. PATIENT WITH LLE WITH BANDAGE ON FOOT. S/P AMPUTATION. DRESSING INTACT AND INPLACE. NO C/O PAIN OR DISCOMFORT AT THIS TIME. PLAN OF CARE DISCUSSED WITH PATIENT. CONT ON ATB ORDERED.BOARD UPDATED. PATIENT AMBULATING TO RESTROOM VOIDING FREELY. CALL LIGHT WITHIN REACH. WILL CONT TO MONITOR.
[2017-06-09 08:35] LABS: FOLIC ACID 15.3 ng/mL (>3.0)
[2017-06-09] MEDS: GABAPENTIN 100 MG CAP PO SCH ×2 (08:39→12:15)
[2017-06-09] MEDS: FUROSEMIDE 20 MG/2 ML VIAL IVP SCH (08:39)
[2017-06-09 09:00] LABS: ANION GAP 12.4 (8-16); CARBON DIOXIDE 26.6 mmol/L (21-32); CREATININE 1.1 mg/dL (0.6-1.3)
[2017-06-09] MEDS ORDERED: ASPIRIN 81 MG TAB.CHEW PO SCH (09:00)
[2017-06-09] MEDS ORDERED: LACTOBACILLUS RHAMNOSUS GG 1 EACH CAP PO SCH (09:00)
--- NOTE | 2017-06-09 10:00 | NUR ---
PATIENT ALERT AND ABLE TO VERBALIZE NEEDS NO ACUTE DISTRESS AT THIS TIME. DENIES PAIN. PATIENT AWAITING CT WEIGHT ENGINEER FOR ABD/PELVIS. WILL CONT TO MONITOR.
--- NOTE | 2017-06-09 10:50 | NUR ---
PATIENT PICKED UP FROM UNIT FOR CT PATIENT WITH PATENT IV TO RAC20G. NO ACUTE DISTRESS . DENIES PAIN. CONSENT SIGNED.
--- NOTE | 2017-06-09 11:30 | NUR ---
PATIENT RETURNED FROM CT STATING SHE WASNT FEELING WELL AND HER VISION WAS BLURRY. CHECKED PATIENTS BLOOD SUGAR WAS 238. PATIENT STATED HER BLURRY VISION RESOLVED AFTER RESTING. WILL CONT TO MONITOR.
[2017-06-09] MEDS ORDERED: HYDROcodone/APAP 5/325 MG 1 TAB TAB PO PRN (11:45)
[2017-06-09] MEDS: LEVOFLOXACIN 750 MG/D5W PREMIX 150 ML IV SCH (12:15)
--- NOTE | 2017-06-09 13:30 | NUR ---
PATIENT AWARE OF DISCHARGE ORDERS. PATIENT TO CONTACT FAMILY FOR TRANSPORTATION ARRANGEMENTS ONCE FAMILY MEMEBER OUT OF WORK. WILL FOLLOW UP.
[2017-06-09] MEDS ORDERED: LACT1.4C PO (13:33)
[2017-06-09] MEDS ORDERED: LEVO750T2 PO (13:33)
[2017-06-09] MEDS ORDERED: PNEUMOCOCCAL VACCINE 23 MCG/0.5 ML VIAL IMVAC SCH (14:40)
--- NOTE | 2017-06-09 15:15 | NUR ---
DISCHARGE INSTRUCTIONS GIVEN TO PATIENT . PATIENT VERBALIZED UNDERSTANDING AND AGREEMENT. RX SCRIPTS GIVEN TO PATIENT. ALL BELONGINGS IN POSSESSION. WOUND TREATMENT DONE BEFORE DISCHARGE. PICTURES TAKEN. IVS DISCONTINUED TO LEFT HAND AND RAC. TOLERATED WELL. LUMEN INTACT. PATIENT ID BANDS REMOVED. PNA VACCINE ADMINISTERED. PATIENT TO NOTIFY WHEN PATEINT IS READY TO BE TAKEN TO PRIVATE VEHICLE WAITING IN FRONT LOBBY.
--- NOTE | 2017-06-09 15:45 | NUR ---
PATIENT ASSISTED OUT TO LOBBY BY STAMP PAD FINISHER VIA WHEELCHAIR. PATIENT LEFT FACILITY WITHOUT DIFFICULTIES.
== END 2017-06-09 15:45 | disposition home or self-care (01) | DRG 194 ==
LOC: MED 03:45 → MMU 06:51 → MTU 06:58
PROVIDERS: ADMIT Family Medicine Sports Medicine; ATTEND Family Medicine Sports Medicine
DX: I50.43 Acute on chronic combined systolic (congestive) and diastolic (congestive) heart failure (principal); N17.0 Acute kidney failure with tubular necrosis; E43 Unspecified severe protein-calorie malnutrition; E11.65 Type 2 diabetes mellitus with hyperglycemia; E11.42 Type 2 diabetes mellitus with diabetic polyneuropathy; D64.9 Anemia, unspecified; K59.09 Other constipation; N39.0 Urinary tract infection, site not specified; F15.10 Other stimulant abuse, uncomplicated; F12.90 Cannabis use, unspecified, uncomplicated; E03.9 Hypothyroidism, unspecified; Z88.0 Allergy status to penicillin; Z79.899 Other long term (current) drug therapy; Z90.49 Acquired absence of other specified parts of digestive tract; Z98.891 History of uterine scar from previous surgery; Z89.429 Acquired absence of other toe(s), unspecified side; Z68.27 Body mass index [BMI] 27.0-27.9, adult; Z79.4 Long term (current) use of insulin; Z79.82 Long term (current) use of aspirin
CPT/HCPCS: 36415; 71045; 80048; 80053; 80305; 81001; 82150; 82607; 82728; 82746; 82948; 83036; 83540; 83690; 83735; 83880; 84100; 84436; 84443; 84479; 84484; 85025; 85045; 86704; 86706; 86708; 86709; 86803; 87081; 87086; 87340; 90732; 93005; 93925; 93970; J0696; J1815; J1940; J1956; J2270; J3490; J7030; Q0092; Q9967

== ENCOUNTER 2017-06-12 22:23 | Emergency (ER) | payer MEDICAID ==
[~2017-06-12] VITALS: Ht 167.6 cm; Wt 72.6 kg
[~2017-06-12 22:23] MED LIST changes: -CLIN300C2 PO; -LACT10CA1 PO; +LEVO750T2 PO
[2017-06-12 22:24] VITALS: BP 116/78
[2017-06-12 23:41] LABS: BASOPHILS % (AUTO) 0.6 % (0.0-2.0); EOSINOPHILS # (AUTO) 0.4 K/uL (0-0.4); EOSINOPHILS % (AUTO) 9.7 % (0.0-4.0); HEMATOCRIT 28.4 % (36-48); HEMOGLOBIN 9.2 g/dL (12.0-16.0); LYMPHOCYTES # (AUTO) 1.2 K/uL (2.5-16.5); LYMPHOCYTES % (AUTO) 28.2 % (20.5-51.1); MEAN CORPUSCULAR HEMOGLOBIN 28 pg (27-31); MEAN CORPUSCULAR HGB CONC 32 g/dL (33-37); MEAN CORPUSCULAR VOLUME 85.5 fL (80-94); MONOCYTES # (AUTO) 0.4 K/uL (0.8-1.0); MONOCYTES % (AUTO) 9.4 % (1.7-9.3); NEUTROPHILS # (AUTO) 2.2 K/uL (1.8-7.7); NEUTROPHILS % (AUTO) 52.1 % (42.2-75.2); PLATELET COUNT (AUTO) 192 K/uL (140-450); RED BLOOD CELL COUNT(AUTO) 3.32 MIL/uL (4.20-5.40); RED CELL DISTRIBUTION WIDTH 15.7 % (11.6-13.7); WHITE BLOOD COUNT (AUTO) 4.3 K/uL (4.8-10.8)
[2017-06-12 23:48] LABS: ANION GAP 13.2 (8-16); CARBON DIOXIDE 26.7 mmol/L (21-32); CREATININE 0.8 mg/dL (0.6-1.3); POTASSIUM 4.9 mmol/L (3.5-5.1)
[2017-06-12 23:55] LABS: ALBUMIN 2.7 g/dL (3.4-5.0); TOTAL BILIRUBIN 0.3 mg/dL (0.0-1.0)
[2017-06-13 00:36] LABS: APPEARANCE,URINE CLEAR (CLEAR); BILIRUBIN,URINE NEGATIVE (NEGATIVE); BLOOD, URINE 2+ (NEGATIVE); COLOR,URINE YELLOW (YELLOW); LEUKOCYTE ESTERASE ,URINE NEGATIVE (NEGATIVE); NITRITE, URINE NEGATIVE (NEGATIVE); PH,URINE 6.5 (5.0-9.0); UGLUCOSE NEGATIVE (NEGATIVE)
--- NOTE | 2017-06-13 01:09 | NUR ---
PT. AMBULATED TO ER BED 11
--- NOTE | 2017-06-13 01:30 | NUR ---
PT CAME IN C/O FLANK BACK PAIN RADIATING TO LEFT SIDE X 1 DAY. PT STATED THAT SHE HAS HX OF RETENTION, CHF, UTI. PAIN 5/10. VSS. RR EVEN AND UNLABORED. PITTING +1 EDEMA NOTED TO THE LOWER EXTREMITIES. DR. MORALES AT BED SIDE EVALUATING PT AND MADE AWARE OF PT'S CONDITION.
[2017-06-13 01:40] LABS: RBC,URINE 3-10 (FEW) /HPF (0-5); WBC,URINE 0-5 (RARE) /HPF (0-5)
[2017-06-13] MEDS ORDERED: MORPHINE SULFATE 4 MG/ML SYR IVP ONE (02:15)
--- NOTE | 2017-06-13 02:20 | NUR ---
PT IS BEING TAKEN TO CT.
--- NOTE | 2017-06-13 02:59 | NUR ---
PT BACK FROM CT SCAN. STARTED IV LINE TO LEFT HAND 22G. MORPHINE ADMINSITERED ORDERED. VSS AND NO ACUTE DISTRESS NOTED. WILL CONTINUE TO MONITOR.
--- NOTE | 2017-06-13 03:10 | NUR ---
PER PT SHE FEELS BETTER, RELAYED TO DR. MORALES
[2017-06-13 03:17] VITALS: BP 114/74
--- NOTE | 2017-06-13 03:17 | NUR ---
Patient discharged with v/s stable. Written and verbal after care instructions given and explained. Patient alert, oriented and verbalized understanding of instructions. Ambulatory with steady gait. All questions addressed prior to discharge. ID band removed. Patient advised to follow up with PMD. Rx of NORCO 5/325 MG given. Patient educated on indication of medication including possible reaction and side effects. Opportunity to ask questions provided and answered.
== END 2017-06-13 03:17 | disposition home or self-care (01) ==
LOC: MED 22:23
DX: N39.0 Urinary tract infection, site not specified (principal); D64.9 Anemia, unspecified; I50.9 Heart failure, unspecified; J45.909 Unspecified asthma, uncomplicated; Z88.0 Allergy status to penicillin
CPT/HCPCS: 36415; 74176; 80053; 81001; 83605; 83690; 83880; 85025; 87040; 96374; 99285; J2270; 81025

== ENCOUNTER 2018-01-22 16:54 | Emergency (ER) | payer MEDICAID, OTHER ==
[~2018-01-22] VITALS: Ht 172.7 cm; Wt 70.3 kg
[2018-01-22 17:30] VITALS: BP 112/60
[2018-01-22] MEDS ORDERED: NACL 0.9% 1,000 ML IV SCH (19:31)
[2018-01-22] MEDS ORDERED: CLINDAMYCIN 900 MG in DEXTROSE 5% 100 ML IV ONE (19:35)
[2018-01-22] MEDS ORDERED: CLINDAMYCIN 900 MG/6 ML VIAL IV ONE (20:06)
[2018-01-22 20:35] LABS: BASOPHILS % (AUTO) 0.9 % (0.0-2.0); EOSINOPHILS # (AUTO) 0.2 K/uL (0-0.4); EOSINOPHILS % (AUTO) 4.8 % (0.0-4.0); HEMATOCRIT 28.7 % (36-48); HEMOGLOBIN 9.6 g/dL (12.0-16.0); LYMPHOCYTES # (AUTO) 1.3 K/uL (2.5-16.5); MEAN CORPUSCULAR HEMOGLOBIN 29 pg (27-31); MEAN CORPUSCULAR HGB CONC 33 g/dL (33-37); MEAN CORPUSCULAR VOLUME 87.5 fL (80-94); MONOCYTES # (AUTO) 0.5 K/uL (0.8-1.0); MONOCYTES % (AUTO) 9.2 % (1.7-9.3); NEUTROPHILS # (AUTO) 2.9 K/uL (1.8-7.7); NEUTROPHILS % (AUTO) 59.1 % (42.2-75.2); PLATELET COUNT (AUTO) 181 K/uL (140-450); RED BLOOD CELL COUNT(AUTO) 3.29 MIL/uL (4.20-5.40); RED CELL DISTRIBUTION WIDTH 13.6 % (11.6-13.7); WHITE BLOOD COUNT (AUTO) 4.9 K/uL (4.8-10.8)
[2018-01-22 20:53] LABS: ANION GAP 10.2 (8-16); CARBON DIOXIDE 29.7 mmol/L (21-32); CREATININE 0.7 mg/dL (0.6-1.3); POTASSIUM 3.9 mmol/L (3.5-5.1)
[2018-01-22 21:06] LABS: ALBUMIN 2.7 g/dL (3.4-5.0); TOTAL BILIRUBIN 0.2 mg/dL (0.0-1.0)
[2018-01-22 21:52] VITALS: BP 112/60
== END 2018-01-22 21:52 | disposition home or self-care (01) ==
LOC: MED 16:54
DX: E11.621 Type 2 diabetes mellitus with foot ulcer (principal); J45.909 Unspecified asthma, uncomplicated; Z88.0 Allergy status to penicillin; Z79.4 Long term (current) use of insulin; Z79.899 Other long term (current) drug therapy
CPT/HCPCS: 36415; 80053; 83605; 85025; 87040; 96365; 99283; J3490; J7030

== ENCOUNTER 2019-03-02 15:54 | Inpatient (IN) | payer MEDICAID, OTHER ==
[~2019-03-02] VITALS: Ht 172.7 cm; Wt 73.0 kg
[~2019-03-02 15:54] MED LIST changes: -ASPI-1677 PO; -ATOR20TA PO; -FURO-572 PO; -LACT1.4C PO
--- NOTE | 2019-03-02 15:54 | NUR ---
PT NAHUM ALS FROM HOME AND PLACED IN BED 10.
[2019-03-02 15:58] VITALS: BP 97/62
--- NOTE | 2019-03-02 16:08 | NUR ---
33/F BIBA FROM HOME C/O HYPERGLYCEMIA 520 AT HOME. FSBS FROM EMS WAS 600 MG/DL. DUE TO INSURANCE PT HAS BEEN OFF LANTUS FOR 1 WK, ONLY USING HUMALOG THAT IS "OLD". DENIES PAIN. C/O NAUSEA, WAS GIVEN 4 MG ZOFRAN ODT IN THE FIELD. GCS 15. APPEARS PALE, STATES FEELS WEAK. BP 97/62 HX- DM2 Addendum: 03/02/19 at 1716 by MNRONALDN ATTEMPTING TO CONTROL BS WITH DIET Addendum: 03/02/19 at 1716 by [email or web address] LIPS AND MUCUS MEMBRANES DRY
[2019-03-02] MEDS ORDERED: NACL 0.9% 2,000 ML IV SCH (16:12)
[2019-03-02] MEDS ORDERED: NACL 0.9% 1,000 ML IV ONE (16:12)
[2019-03-02] MEDS ORDERED: NACL 0.9% 1,000 ML IV SCH (16:12)
[2019-03-02] MEDS ORDERED: INSU100S22 SUBQ (16:12)
[2019-03-02] MEDS ORDERED: ONDANSETRON 4 MG/2 ML VIAL IVP ONE (16:15)
[2019-03-02] MEDS ORDERED: INSULIN REGULAR, HUMAN 100 UNIT/ML VIAL IVP ONE (16:15)
[2019-03-02] MEDS ORDERED: SODIUM BICARBONATE 8.4% PFS 50 MEQ/50 ML SYR IVP ONE (16:15)
[2019-03-02] MEDS ORDERED: THIAMINE 200 MG/2 ML VIAL IM ONE (16:15)
--- NOTE | 2019-03-02 16:38 | NUR ---
EMT AT BEDSIDE FOR EKG
--- NOTE | 2019-03-02 16:41 | NUR ---
RT AT BEDSIDE FOR ABG
--- NOTE | 2019-03-02 16:41 | NUR ---
aboriginal liaison officer at bedside Addendum: 03/02/19 at 1641 by MAX INFLUENZA SWAB GIVEN TO VAPOR COATER
[2019-03-02 17:03] LABS: BASOPHILS % (AUTO) 0.3 % (0.0-2.0); EOSINOPHILS # (AUTO) 0.1 K/uL (0-0.4); EOSINOPHILS % (AUTO) 0.5 % (0.0-4.0); HEMATOCRIT 32.5 % (36-48); HEMOGLOBIN 10.6 g/dL (12.0-16.0); LYMPHOCYTES # (AUTO) 1.5 K/uL (2.5-16.5); LYMPHOCYTES % (AUTO) 10.6 % (20.5-51.1); MEAN CORPUSCULAR HEMOGLOBIN 28 pg (27-31); MEAN CORPUSCULAR HGB CONC 33 g/dL (33-37); MEAN CORPUSCULAR VOLUME 86.9 fL (80-94); MONOCYTES # (AUTO) 0.4 K/uL (0.8-1.0); MONOCYTES % (AUTO) 2.7 % (1.7-9.3); NEUTROPHILS # (AUTO) 12.2 K/uL (1.8-7.7); NEUTROPHILS % (AUTO) 85.9 % (42.2-75.2); PLATELET COUNT (AUTO) 557 K/uL (140-450); RED BLOOD CELL COUNT(AUTO) 3.74 MIL/uL (4.20-5.40); RED CELL DISTRIBUTION WIDTH 13.5 % (11.6-13.7); WHITE BLOOD COUNT (AUTO) 14.2 K/uL (4.8-10.8)
--- NOTE | 2019-03-02 17:09 | NUR ---
MOTHER AT BEDSIDE. PT ON BEDPAN TO PROVIDE URINE SAMPLE.
[2019-03-02 17:27] LABS: ACETONE, SERUM NEGATIVE (NEGATIVE)
[2019-03-02 17:33] LABS: APPEARANCE,URINE CLEAR (CLEAR); BILIRUBIN,URINE 1+ (NEGATIVE); BLOOD, URINE 1+ (NEGATIVE); COLOR,URINE YELLOW (YELLOW); LEUKOCYTE ESTERASE ,URINE TRACE (NEGATIVE); NITRITE, URINE NEGATIVE (NEGATIVE); PH,URINE 5.5 (5.0-9.0); UGLUCOSE 3+ (NEGATIVE)
[2019-03-02 17:42] LABS: ALBUMIN 2.4 g/dL (3.4-5.0); AMYLASE 39 U/L (25-115); ASPARTATE AMINOTRANSFERASE 16 U/L (15-37); CHLORIDE 91 mmol/L (98-107); CREATININE 1.5 mg/dL (0.6-1.3); GFR ARICAN-AMERICAN 51 mL/min (>90); LIPASE 147 U/L (73-393); MAGNESIUM 2.1 mg/dL (1.8-2.4); SODIUM SERUM 128 mmol/L (136-145); TOTAL BILIRUBIN 0.4 mg/dL (0.0-1.0); UREA NITROGEN, BLOOD 24 mg/dL (7-18)
[2019-03-02 17:44] LABS: GLUCOSE 570 mg/dL (74-106)
--- NOTE | 2019-03-02 17:44 | NUR ---
XRAY AT BEDSIDE
[2019-03-02 17:56] LABS: RBC,URINE 0-5 /HPF (0-5)
[2019-03-02] MEDS ORDERED: DEXT 5% / NACL 0.45% 1,000 ML IV ONE (18:11)
[2019-03-02] MEDS ORDERED: INSULIN REGULAR, HUMAN 100 UNIT/ML VIAL SUBQ ONE (18:15)
[2019-03-02] MEDS ORDERED: ACETAMINOPHEN 325 MG TAB PO PRN (18:15)
[2019-03-02] MEDS ORDERED: ONDANSETRON 4 MG/2 ML VIAL IVP PRN (18:15)
[2019-03-02] MEDS ORDERED: LORazepam 2 MG/ML VIAL IVP ONE (18:15)
[2019-03-02] MEDS ORDERED: DEXTROSE 50% 50 ML SYR IVP PRN (18:15)
[2019-03-02] MEDS ORDERED: INSULIN REGULAR, HUMAN 100 UNIT in NACL 0.9% 100 ML IV SCH ×2 (18:15)
--- NOTE | 2019-03-02 18:30 | NUR ---
DR. VERDIN AT BEDSIDE
[2019-03-02 19:02] LABS: PROTHROMBIN TIME 8.9 secs (10.8-13.4)
[2019-03-02 19:04] LABS: FREE T4 (FREE THYROXINE) 0.97 ng/dL (0.76-1.46); PHOSPHORUS 3.8 mg/dL (2.5-4.9); THYROID STIMULATING HORMONE 3.24 uIU/mL (0.34-3.74)
--- NOTE | 2019-03-02 19:10 | NUR ---
RECEIVED PT FROM ER VIA [facility].PT ABLE TO MOVE FROM GURNEY TO BED.MONITORS ATTACHED.ST ON MONITOR.ON ROOM AIR.NO SOB NOTED.WITH PERIPHERAL IV TO RT F/A G20 INTACT.ABDOMEN SOFT NON TENDER.MAINTAINED ON NPO EXCEPT MEDS.SKIN INTACT.LT 2ND TOE AMPUTEE.NO C/O PAIN MADE.WILL CONTINUE TO CLOSELY MONITOR PT
--- NOTE | 2019-03-02 19:10 | NUR ---
Patient will be admitted to care of DR. CLEMENTS. Admited to ICU. Will go to room ICU-2. Belongings list completed. Report to ISABELLE CHANG.
[2019-03-02] MEDS: BLOOD GLUCOSE MONITORING 1 DEV DEV FS SCH ×7 (19:15→23:15)
[2019-03-02] MEDS ORDERED: POTASSIUM CHL 20 MEQ/NACL 0.9% 1,000 ML IV ONE (19:32)
[2019-03-02] MEDS: POTASSIUM CHLORIDE 20 MEQ in NACL 0.9% 1,000 ML IV SCH ×2 (19:36→23:18)
[2019-03-02 20:00] VITALS: BP 95/57
--- NOTE | 2019-03-02 20:25 | NUR ---
DR SOL AT BEDSIDE AND SPOKE WITH PT , PTS PARTNER AND PTS MOTHER; LITO BREWSTER REGARDING CENTRAL LINE PLACEMENT; PT AGREED AND ASKED IF LITO CAN SIGN THE CONSENT.CONSENT SIGNED BY PTS MOTHER LITO
[2019-03-02 20:52] LABS: BASOPHILS % (AUTO) 0.3 % (0.0-2.0); EOSINOPHILS # (AUTO) 0.2 K/uL (0-0.4); EOSINOPHILS % (AUTO) 1.1 % (0.0-4.0); HEMATOCRIT 26.1 % (36-48); HEMOGLOBIN 8.6 g/dL (12.0-16.0); LYMPHOCYTES # (AUTO) 1.7 K/uL (2.5-16.5); LYMPHOCYTES % (AUTO) 11.6 % (20.5-51.1); MEAN CORPUSCULAR HEMOGLOBIN 28 pg (27-31); MEAN CORPUSCULAR HGB CONC 33 g/dL (33-37); MEAN CORPUSCULAR VOLUME 84.5 fL (80-94); MONOCYTES # (AUTO) 0.7 K/uL (0.8-1.0); MONOCYTES % (AUTO) 4.4 % (1.7-9.3); NEUTROPHILS # (AUTO) 12.2 K/uL (1.8-7.7); NEUTROPHILS % (AUTO) 82.6 % (42.2-75.2); PLATELET COUNT (AUTO) 407 K/uL (140-450); RED BLOOD CELL COUNT(AUTO) 3.09 MIL/uL (4.20-5.40); RED CELL DISTRIBUTION WIDTH 13.8 % (11.6-13.7); WHITE BLOOD COUNT (AUTO) 14.8 K/uL (4.8-10.8)
[2019-03-02 21:00] VITALS: BP 89/59
[2019-03-02] MEDS: DOCUSATE SODIUM 100 MG GELCAP PO SCH (21:00)
[2019-03-02 21:06] LABS: ANION GAP 27.3 (8-16); CARBON DIOXIDE 11.4 mmol/L (21-32); CREATININE 1.3 mg/dL (0.6-1.3); POTASSIUM 3.7 mmol/L (3.5-5.1)
[2019-03-02 21:28] LABS: MAGNESIUM 1.6 mg/dL (1.8-2.4); PHOSPHORUS 3.2 mg/dL (2.5-4.9)
[2019-03-02] MEDS ORDERED: NACL 0.9% 500 ML IV ONE ×2 (21:45→23:25)
[2019-03-02 22:00] VITALS: BP 104/62
[2019-03-02] MEDS ORDERED: cefTRIAXone 1,000 MG VIAL ONE (22:17)
--- NOTE | 2019-03-02 22:20 | NUR ---
PHONE CALL FROM PHARMACIST; PT ALLERGIC TO PENICILLIN AND ORDERED ROCEPHIN BY DR DAWSON; PHONE CALL MADE TO DR DAWSON AND MADE AWARE THAT PT IS ALLERGIC TO PENICILLIN; DR DAWSON SAID OK TO ADMINISTER ROCEPHIN.PHARMACIST AWARE
[2019-03-02] MEDS ORDERED: MAG SULF 2000 MG/WATER PREMIX 100 ML IV SCH (22:30)
[2019-03-02 23:00] VITALS: BP 103/61
--- NOTE | 2019-03-02 23:15 | NUR ---
PHONE CALL TO DR SOL; MADE XAVIER BS 156; INSULIN DRIP ALREADY DECREASED TO 0.05/KG/HR ; PHYSICIAN SAID HE WILL PUT IN ORDERS.
[2019-03-03] VITALS (12 sets, daily range): BP systolic 88–143; BP diastolic 50–81
[2019-03-03] MEDS ORDERED: POTASSIUM CHL 20MEQ/D5-NS 1,000 ML IV ONE ×2 (00:03→04:47)
[2019-03-03] MEDS: POTASSIUM CHLORIDE IV SCH ×3 (00:07→04:54)
[2019-03-03] MEDS: NACL 0.9% IV SCH ×3 (00:07→04:54)
[2019-03-03] MEDS: DEXT 5% IV SCH ×3 (00:07→04:54)
[2019-03-03] MEDS: BLOOD GLUCOSE MONITORING 1 DEV DEV FS SCH ×11 (00:09→20:00)
--- NOTE | 2019-03-03 00:15 | NUR ---
BS 108; DR VERDIN AWARE; TO INCREASE IVF D5NS W/20MEQ POTASSIUM TO 200ML/HR
[2019-03-03 01:07] LABS: ANION GAP 12.7 (8-16); CARBON DIOXIDE 22.8 mmol/L (21-32); CREATININE 1.2 mg/dL (0.6-1.3); POTASSIUM 3.5 mmol/L (3.5-5.1)
[2019-03-03 01:10] LABS: MAGNESIUM 1.7 mg/dL (1.8-2.4); PHOSPHORUS 2.2 mg/dL (2.5-4.9)
--- NOTE | 2019-03-03 01:22 | NUR ---
BS 95; STILL ON INSULIN DRIP AT 0.05UNITS/KG/HR ;DR VERDIN AWARE.ALSO NOTIFIED RE;MAGNESIUM 1.7; NO CHANGE IN ORDER
--- NOTE | 2019-03-03 01:55 | NUR ---
NOTED PT'S BOYFRIEND AT BEDSIDE TO BE GIVING HER WATER DESPITE INFORMING HIM AND THE PT THAT PT IS CURRENTLY NPO EXCEPT MEDS. RISKS AND BENEFITS WERE ALREADY PREVIOUSLY EXPLAINED.
--- NOTE | 2019-03-03 02:13 | NUR ---
PT IN BED, DRINKING WATER DESPITE REMINDER TO NOT DO SO. PT'S BOYFRIEND STILL AT BEDSIDE. PT REMAINS NON-COMPLIANT WITH THE DIET ORDERED BY ATTENDING DUE TO DX: DKA.
--- NOTE | 2019-03-03 02:39 | NUR ---
PT VOIDED 350ML YELLOW URINE/BEDPAN; PT THEN VERBALIZED "FEELING BLOOD SUGAR IS LOW". BLOOD SUGAR CHECKED 78; NOTIFIED DR VERDIN, INSULIN DRIP ON HOLD AT THIS TIME.
[2019-03-03] MEDS: POTASSIUM CHLORIDE 20 MEQ in NACL 0.9% 1,000 ML IV SCH (04:21)
[2019-03-03 04:44] LABS: CREATININE 1.2 mg/dL (0.6-1.3)
[2019-03-03 04:48] LABS: MAGNESIUM 2.2 mg/dL (1.8-2.4); PHOSPHORUS 2.6 mg/dL (2.5-4.9)
--- NOTE | 2019-03-03 04:56 | NUR ---
CALLED DR. VERDIN REGARDING THE RECENT BMP RESULT. PER DR. VERDIN, CONTINUE TO KEEP PT OFF INSULIN DRIP. IV FLUIDS ORDERED WILL BE REVIEWED. WILL WAIT FOR THE NEW ORDER.
[2019-03-03 05:00] LABS: CHOL/HDL RATIO 6.6 (1-4.5)
--- NOTE | 2019-03-03 05:07 | NUR ---
PHONE CALL TO DR VERDIN; BS 196;AWAITING PHYSICIAN'S NEW ORDERS
[2019-03-03] MEDS: NACL 0.9% 1,000 ML IV SCH ×2 (05:32→15:01)
[2019-03-03] MEDS: INSULIN LISPRO SLIDING SCALE 100 UNITS/ML VIAL SUBQ PRN ×5 (05:33→21:14)
--- NOTE | 2019-03-03 05:35 | NUR ---
IVF CHANGED TO NS AT 100ML/HR.INSULIN SLIDING SCALE ADMINISTERED FOR BS 196; VERIFIED W/RN JOEY. PTS EYES CLOSED.AROUSABLE TO NAME AND TOUDH STIMULI.TLC TO RT IJ WITH GOOD BLEED RETURN TO ALL 3 PORTS.NO SOB ON ROOM AIR.SR ON MONITOR HR 95 AND BP 118/66.DENIES PAIN
--- NOTE | 2019-03-03 06:30 | NUR ---
PT TAKING ICE CHIPS AND WATER WELL.DENIES NAUSEA AT THIS TIME.
--- NOTE | 2019-03-03 07:10 | NUR ---
RECEIVED REPORT FROM STATE ASSESSED PROPERTIES DIRECTOR RN. PT RESTING IN BED AWAKE. A/O X4. MAKES NEEDS KNOWN. IN ROOM AIR. SPO2 100%. SKIN DRY AND WARM TO TOUCH. LUNGS CLEAR. RIJ TRIPLE LUMEN CATH IN PLACE. DRESSING INTACT. GOOD BLOOD RETURNS. FLUSHED. NS INFUSING AT 100 ML/HR. ABDOMEN SOFT, ROUND AND NON-TENDER. ACTIVE BOWEL SOUND. DENIES NAUSEA, VOMITING OR ABDOMINAL PAIN AT THIS TIME. SKIN INTACT. AMPUTEE LEFT 2ND TOE. HOB ELEVATED. BED IN LOW POSITION LOCKED. WILL CONTINUE TO MONITOR.
[2019-03-03] MEDS: DOCUSATE SODIUM 100 MG GELCAP PO SCH ×2 (08:13→21:20)
--- NOTE | 2019-03-03 09:00 | NUR ---
DR. CARDENAS MADE AWARE OF HB 8.6.
--- NOTE | 2019-03-03 09:27 | NUR ---
VOIDED 1000 ML URINE. ASSISTED NEEDED.
[2019-03-03 10:10] LABS: ANION GAP 14.7 (8-16); POTASSIUM 3.7 mmol/L (3.5-5.1)
[2019-03-03 10:13] LABS: MAGNESIUM 2.2 mg/dL (1.8-2.4); PHOSPHORUS 2.3 mg/dL (2.5-4.9); POTASSIUM 3.7 mmol/L (3.5-5.1)
[2019-03-03 10:34] LABS: BASOPHILS % (AUTO) 0.4 % (0.0-2.0); EOSINOPHILS # (AUTO) 0.2 K/uL (0-0.4); HEMATOCRIT 24.4 % (36-48); HEMOGLOBIN 8.3 g/dL (12.0-16.0); LYMPHOCYTES # (AUTO) 1.1 K/uL (2.5-16.5); LYMPHOCYTES % (AUTO) 9.5 % (20.5-51.1); MEAN CORPUSCULAR HEMOGLOBIN 29 pg (27-31); MEAN CORPUSCULAR HGB CONC 34 g/dL (33-37); MEAN CORPUSCULAR VOLUME 84.5 fL (80-94); MONOCYTES # (AUTO) 0.5 K/uL (0.8-1.0); MONOCYTES % (AUTO) 4.2 % (1.7-9.3); NEUTROPHILS # (AUTO) 9.3 K/uL (1.8-7.7); NEUTROPHILS % (AUTO) 83.9 % (42.2-75.2); PLATELET COUNT (AUTO) 394 K/uL (140-450); RED BLOOD CELL COUNT(AUTO) 2.89 MIL/uL (4.20-5.40); RED CELL DISTRIBUTION WIDTH 13.4 % (11.6-13.7)
[2019-03-03] MEDS: INSULIN LANTUS 100 UNITS/ML 10 ML VIAL SUBQ SCH (10:35)
[2019-03-03] MEDS ORDERED: POTASSIUM PHOSPHATE 15 MM in NACL 0.9% 250 ML IV ONE (11:00)
--- NOTE | 2019-03-03 12:33 | NUR ---
PT NOTED WITH ELEVATED HR 120, C/O HEART BURN POINTING CHEST, BACK AND NAUSEA. DENIES DIFFICULTY BREATHING OR SOB. SPO2 [address] CARDENAS MADE AWARE. ZOFRAN ADMINISTERED PER ORDER. EKG DONE SHOWED ST. LAB MADE AWARE OF TROPONIN TO BE DRAWN.
--- NOTE | 2019-03-03 12:36 | NUR ---
PT WANTED TO TALK TO HER MOM. CALLED MOTHER # [phone]. HAVE PT TALK TO HER MOTHER.
[2019-03-03] MEDS: FAMOTIDINE 20 MG/2 ML VIAL IV SCH (12:44)
--- NOTE | 2019-03-03 14:30 | NUR ---
ST ON MONITOR. NO SOB OR RESPIRATORY DISTRESS NOTED. SPO2 99% IN ROOM AIR. NO CHANGE IN CONDITION. WILL CONTINUE TO MONITOR.
--- NOTE | 2019-03-03 15:28 | NUR ---
VOIDED 1500 ML. URINE SAMPLE COLLECTED AND TAKEN TO THE LAB FOR UDS AND TEST.
--- NOTE | 2019-03-03 15:36 | NUR ---
PT NOTED WITH FEVER 100.6 DEGREE F. TYLENOL GIVEN PER ORDER.
--- NOTE | 2019-03-03 16:02 | NUR ---
FEVER DECREASED TO 99.6 DEGREE F. PT APPEARS RELAXED IN BED EATING SNACKS PROVIDED.
--- NOTE | 2019-03-03 16:13 | NUR ---
REPORT GIVEN TO TELE NURSE YUE. PT WILL BE TRANSFERRED TO THE ROOM 126 A.
--- NOTE | 2019-03-03 16:20 | NUR ---
RECEIVED PATIENT FROM ICU NURSE MOSHE. PATIENT IS FULL CODE, ALLERGIES TO PENICILLIN. PATIENT IS AAOX4, AMBULATORY, ROOM AIR. PT USES BEDSIDE COMMODE. PATIENT HAS A RIGHT IJ TRIPLE LUMEN WITH NS INFUSING AT 120ML/HR. IV TO RIGHT FA 20G SALINE LOCK. WILL REVIEW PLAN OF CARE AND CONTINUE FOR THE DAY.
--- NOTE | 2019-03-03 16:25 | NUR ---
PT LEFT THE ICU FOR TELE UNIT ON STABLE CONDITION ACCOMPANIED BY CHARGE NURSE.
--- NOTE | 2019-03-03 16:30 | NUR ---
ADMITTING TELE STRIP SINUS TACHY 113 SC.
--- NOTE | 2019-03-03 17:04 | NUR ---
ADMINISTERED 10U INSULIN FOR BLOOD SUGAR 387. PATIENT IS RESTING QUIETLY IN BED, NO RESP DISTRESS NOTED.
[2019-03-03 17:23] LABS: BARBITURATE, URINE NEGATIVE ng/ml (NEG <=200); BENZODIAZEPINE, URINE NEGATIVE ng/mL (NEG <=200); CANNABINOID, URINE NEGATIVE ng/mL (NEG <=50); COCAINE, URINE NEGATIVE ng/mL (NEG <=300); OPIATE, URINE NEGATIVE ng/mL (NEG <=2000); PHENCYCLIDINE SCREEN,URINE NEGATIVE ng/mL (NEG <=25)
--- NOTE | 2019-03-03 17:30 | NUR ---
PER DR HAN, PATIENT IS TO HAVE BLOOD SUGAR CHECKS Q4H ATC TO AVOID DKA AGAIN. INFORMED RESIDENTS AND ORDER HAS BEEN INPUT.
--- NOTE | 2019-03-03 18:21 | NUR ---
PATIENT IS SITTING UP IN BED EATING DINNER. NO COMPLAINTS AT THIS TIME, ALL NEEDS HAVE BEEN MET. WILL ENDORSE TO COMMISSIONER OF CONCILIATION FOR CONTINUITY OF CARE
--- NOTE | 2019-03-03 19:25 | NUR ---
RECEIVED REPORT FROM PRATIBHA BLANTON AT BEDSIDE FOR CONTINUITY OF CARE, PT IN STABLE CONDITION. Addendum: 03/03/19 at 1928 by May Pearson RN RECEIVED REPORT FROM YUE MCKINNON RN.
--- NOTE | 2019-03-03 20:00 | NUR ---
PT SITTING UP IN BED AOX4, NO C/O OF PAIN OR DISTRESS NOTED.RIJ TRIPLE LUMEN INTACT AND RUNNING NORMAL SALINE AT 120MLS/HR. V/S FOLLOWS: T 98.3 P 107 R 18 B/P 103/67 98% ON ROOM AIR. FINGERSTICK IS 302.WILL COVER WITH HUMALOG ALL UNIVERSAL FALLS PRECAUTIONS IN PLACE AND CALL ROBINS IN REACH.
--- NOTE | 2019-03-03 20:30 | NUR ---
PT GIVEN 8 UNITS HUMALOG COVERAGE WELL ORDERED COLACE FOR STOOL SOFTENER AND HEPARIN SHOT FOR DVT PREVENTION. EDUCATION REGARDING MEDICATION PROVIDED AT BEDSIDE, INCLUDING SIDE EFFECTS, PT VERBALIZED UNDERSTANDING. PT GIVEN REQUESTED DIABETIC SNACK. WILL CONTINUE TO MONITOR BLOOD SUGAR. ALL REQUESTED NEEDS ATTENDED AND ALL UNIVERSAL FALLS PRECAUTIONS IN PLACE.
--- NOTE | 2019-03-03 23:30 | NUR ---
PT IN BED RESTING BUT AROUSABLE TO NAME AND LIGHT TOUCH. IV SITE ON R IJ INTACT AND RUNNING NORMAL SALINE AT 120MLS/HR. ROCEPHIN HUNG AND RUNNING AT 100MLS/HR. FINGERSTICK IS 215, PT GIVEN 4 UNITS OF HUMALOG COVERAGE PROVIDED SQ IN ABDOMEN. V/S FOLLOWS: T 98.7 P 102 R 20 B/P 120/72 02 98% ON ROOM AIR . ALL UNIVERSAL FALLS PRECAUTIONS IN PLACE .
[2019-03-04] VITALS: BP 120/72
[2019-03-04] MEDS: NACL 0.9% 1,000 ML IV SCH ×4 (00:36→22:36)
[2019-03-04] MEDS: BLOOD GLUCOSE MONITORING 1 DEV DEV FS SCH ×7 (00:51→23:29)
[2019-03-04] MEDS: INSULIN LISPRO SLIDING SCALE 100 UNITS/ML VIAL SUBQ PRN ×7 (00:58→23:32)
[2019-03-04 04:00] VITALS: BP 101/67
--- NOTE | 2019-03-04 04:00 | NUR ---
PT IN BED SLEEPING BUT AROUSABLE TO NAME AND LIGHT TOUCH, NO S/S OF PAIN OR DISTRESS NOTED. V/S FOLLOWS; T 99.1 P 94 R 18 B/P 101/67 02 97% ON ROOM AIR. FINGERSTICK IS 242, PT GIVEN 4 UNITS OF HUMALOG COVERAGE. ALL REQUESTED NEEDS ATTENDED BY STAFF AND ALL UNIVERSAL FALLS PRECAUTIONS IN PLACE.
--- NOTE | 2019-03-04 06:00 | NUR ---
PT IN BED RESTING NO S/S OF PAIN OR DISTRESS NOTED AND ALL UNIVERSAL FALLS PRECAUTIONS IN PLACE.
[2019-03-04 06:33] LABS: BASOPHILS % (AUTO) 0.2 % (0.0-2.0); EOSINOPHILS # (AUTO) 0.1 K/uL (0-0.4); EOSINOPHILS % (AUTO) 1.9 % (0.0-4.0); HEMATOCRIT 20.8 % (36-48); LYMPHOCYTES % (AUTO) 17.5 % (20.5-51.1); MEAN CORPUSCULAR HEMOGLOBIN 28 pg (27-31); MEAN CORPUSCULAR HGB CONC 33 g/dL (33-37); MEAN CORPUSCULAR VOLUME 85.5 fL (80-94); MONOCYTES # (AUTO) 0.5 K/uL (0.8-1.0); NEUTROPHILS # (AUTO) 4.3 K/uL (1.8-7.7); NEUTROPHILS % (AUTO) 72.4 % (42.2-75.2); PLATELET COUNT (AUTO) 229 K/uL (140-450); RED BLOOD CELL COUNT(AUTO) 2.43 MIL/uL (4.20-5.40); RED CELL DISTRIBUTION WIDTH 13.8 % (11.6-13.7); WHITE BLOOD COUNT (AUTO) 5.9 K/uL (4.8-10.8)
--- NOTE | 2019-03-04 07:15 | NUR ---
RECEIVED REPORT FROM NIGHT RN. PATIENT IS FULL CODE, ALLERGIES TO PENICILLIN. CAME FROM HOME, SKIN INTACT WITH THE EXCEPTION OF L 2ND TOE AMPUTATION. AAOX4, ROOM AIR, CCHO60 DIET. PT HAS A RIGHT IJ TRIPLE LUMEN AND A RIGHT FA 20G SALINE LOCKED. PATIENT IS GETTING NS VIA TRIPLE LUMEN AT 120ML/HR. BLOOD SUGAR CHECKS ARE TO BE Q4H. WILL REVIEW AND CONTINUE WITH PLAN OF CARE FOR THE DAY.
[2019-03-04 07:27] LABS: MAGNESIUM 1.8 mg/dL (1.8-2.4); PHOSPHORUS 2.9 mg/dL (2.5-4.9)
[2019-03-04 07:28] LABS: ANION GAP 11.8 (8-16); CARBON DIOXIDE 21.9 mmol/L (21-32); CREATININE 1.1 mg/dL (0.6-1.3); POTASSIUM 3.7 mmol/L (3.5-5.1)
[2019-03-04 08:00] VITALS: BP 119/79
[2019-03-04 08:14] LABS: HEMOGLOBIN 6.9 g/dL (12.0-16.0)
--- NOTE | 2019-03-04 08:20 | NUR ---
RECEIVED CRITICAL LAB VALUE OF HGB 6.9, HCT 20.8. INFORMED RESIDENTS, PATIENT TO HAVE BLOOD TRANSFUSION. WILL PRINT OUT CONSENT AND HAVE PATIENT SIGN.
[2019-03-04] MEDS: DOCUSATE SODIUM 100 MG GELCAP PO SCH ×2 (08:36→20:03)
--- NOTE | 2019-03-04 08:40 | NUR ---
ADMINISTERED MORNING MEDICATION. PATIENT RECEIVED 4U HUMALOG AND 40U LANTUS INSULIN THIS MORNING. PATIENT SIGNED CONSENT FOR BLOOD TRANSFUSION, WELL RESIDENT. RESIDENT AT BEDSIDE EXPLAINING TRANSFUSION. NO FURTHER QUESTIONS AT THIS TIME FROM PATIENT.
[2019-03-04] MEDS: INSULIN LANTUS 100 UNITS/ML 10 ML VIAL SUBQ SCH (08:45)
--- NOTE | 2019-03-04 08:57 | NUR ---
PATIENT HAS BEEN SCREENED AND CATEGORIZED HIGH NUTRITION RISK. PATIENT WILL BE SEEN WITHIN 1-2 DAYS OF ADMISSION. 03/04/[address]
[2019-03-04] MEDS ORDERED: BISACODYL 5 MG TABEC PO SCH (09:00)
--- NOTE | 2019-03-04 11:10 | NUR ---
BEGAN BLOOD TRANSFUSION. DID PRE-CHECK WITH BERNARDO MCMULLEN. PATIENTS PRE TRANSFUSION VITALS ARE T 97.1, RI 97, BP 119/79, O2 100%. NO COMPLAINTS FROM PATIENT AT THIS TIME. WILL MONITOR PATIENT DURING FIRST 15 MIN OF TRANSFUSION
[2019-03-04] MEDS: ACETAMINOPHEN 325 MG TAB PO SCH ×2 (11:37→16:00)
[2019-03-04] MEDS: FAMOTIDINE 20 MG/2 ML VIAL IV SCH (11:38)
--- NOTE | 2019-03-04 11:53 | NUR ---
Adobe Ball Mixer Note: Basic Screen: Yes High Risk DC Screen Tillar: LITO BREWSTER Home Relationship: MOTHER Pre-Admission Living Arrangements: Lives with Other Prior ADL Independent Current Home Health Name/Tel: N/A Current DME/02 Name/Tel: N/A Current Hospice Name/Tel: N/A Current Dialysis Name/Tel: N/A Healthcare Decision Maker: Patient Advance Directive No - REFUSED Information Taught: Advance Directive Person Taught: Patient Teaching Tools: Verbal Factors Affecting Learning: None Participation Level: Refused Evaluation: Verbalizes Understanding Needs Additional Education: No Discipline: Case Mgt/Social Svcs Tentative Discharge Plan/Destination: No Needs Identified Will require assistance post discharge: No Referred to Telecasting Technician: No Tentative Discharge Plan Summary: Patient is a 33-year-old female admitted for DKA. Patient has PMHX of DM and CHF. Patient was admitted from home. SW met with patient at bedside to verify demographics. Patient reported no history of mental health and no history of substance abuse. Patient's tentative discharge plan is to return home. No further needs identified. Signature: KARTHIK Gonzalez Date: Mar 04, 2019 Time: 11:52
[2019-03-04] MEDS: FERROUS SULFATE 325 MG TABEC PO SCH ×2 (11:57→17:03)
--- NOTE | 2019-03-04 11:59 | NUR ---
ADMINISTERED TYLENOL AND BENADRYL FOR BLOOD TRANSFUSION. ADMINISTERED HUMALOG 6U FOR BLOOD SUGAR 264. PATIENTS MOTHER IS AT BEDSIDE. NO COMPLAINTS AT THIS TIME.
[2019-03-04 12:00] VITALS: BP 138/90
[2019-03-04] MEDS ORDERED: FUROSEMIDE 20 MG TAB PO SCH (12:00)
[2019-03-04] MEDS ORDERED: SODIUM FERRIC GLUCONATE 125 MG in NACL 0.9% 100 ML IV SCH (13:00)
--- NOTE | 2019-03-04 13:26 | NUR ---
PATIENT IS SITTING UP IN BED, MOTHER AT BEDSIDE. NO COMPLAINTS, BLOOD STILL INFUSING. WILL CALL LAB TO F/U WITH BLOOD DRAW AFTER TRANSFUSION.
--- NOTE | 2019-03-04 15:00 | NUR ---
PATIENT HAS COMPLETED TRANSFUSION. NO REACTION NOTED DURING TRANSFUSION. WILL F/U WITH LAB TO DRAW CBC.
[2019-03-04 16:00] VITALS: BP 120/81
--- NOTE | 2019-03-04 16:03 | NUR ---
03/04/19 RD INITIAL ASSESSMENT COMPLETED PLEASE REFER TO NUTRITION ASSESSMENT UNDER CARE ACTIVITY FOR ESTIMATED NUTRITIONAL NEEDS. 1. CONTINUE [facility] 60GM DIET TOLERATED 2. RD PROVIDED NUTRITION EDUCATION ON DIABETES 3. RD TO FOLLOW-UP 5-7 DAYS, LOW RISK JIM COYNE RD
[2019-03-04 16:15] LABS: BASOPHILS % (AUTO) 0.5 % (0.0-2.0); EOSINOPHILS # (AUTO) 0.1 K/uL (0-0.4); EOSINOPHILS % (AUTO) 2.4 % (0.0-4.0); HEMATOCRIT 24.2 % (36-48); HEMOGLOBIN 8.1 g/dL (12.0-16.0); LYMPHOCYTES # (AUTO) 1.4 K/uL (2.5-16.5); LYMPHOCYTES % (AUTO) 25.6 % (20.5-51.1); MEAN CORPUSCULAR HEMOGLOBIN 29 pg (27-31); MEAN CORPUSCULAR HGB CONC 34 g/dL (33-37); MEAN CORPUSCULAR VOLUME 86.5 fL (80-94); MONOCYTES # (AUTO) 0.5 K/uL (0.8-1.0); MONOCYTES % (AUTO) 9.6 % (1.7-9.3); NEUTROPHILS # (AUTO) 3.3 K/uL (1.8-7.7); NEUTROPHILS % (AUTO) 61.9 % (42.2-75.2); PLATELET COUNT (AUTO) 275 K/uL (140-450); RED CELL DISTRIBUTION WIDTH 14.2 % (11.6-13.7); WHITE BLOOD COUNT (AUTO) 5.4 K/uL (4.8-10.8)
--- NOTE | 2019-03-04 16:30 | NUR ---
BLOOD SUGAR OF 203, GAVE 4U INSULIN SUBQ
--- NOTE | 2019-03-04 17:04 | NUR ---
PATIENT RECEIVED ANOTHER DOSE OF BENADRYL AND TYLENOL POST TRANSFUSION.
--- NOTE | 2019-03-04 18:38 | NUR ---
PATIENT IS SITTING UP IN BED EATING DINNER. NO COMPLAINTS AT THIS TIME, ALL NEEDS HAVE BEEN MET, WILL ENDORSE TO NEXT SHIFT FOR CONTINUITY OF CARE
--- NOTE | 2019-03-04 19:15 | NUR ---
REPORT RECEIVED FROM AM NURSE AT BEDSIDE. PT IN STABLE CONDITION. AAOX4. INTRODUCED SELF TO PT. BOARD UPDATED. NO COMPLAINTS OF PAIN. NO SOB. AFEBRILE. PT IS AMBULATORY. IV SITE R FA 20G SL PATENT AND INTACT. SECOND LINE IS R IJ CENTRAL LINE TRIPLE LUMEN RUNNING NS@100ML/HR ALL PORTS EXCEPT BROWN ARE PATENT AND INTACT. SKIN WARM, DRY, AND INTACT WITH NO OPEN WOUNDS. BED LOCKED IN LOW POSITION. CALL ROBINS WITHIN REACH. SAFETY PRECAUTION IN PLACE. ALL NEEDS MET AT THIS TIME.
[2019-03-04 20:00] VITALS: BP 123/84
--- NOTE | 2019-03-04 20:03 | NUR ---
COLACE GIVEN PO. HEPARIN GIVEN SUBQ. BS 241. 4 UNITS OF HUMALOG GIVEN. PT TOLERATED WELL.
--- NOTE | 2019-03-04 21:30 | NUR ---
PT AWAKE AND ALERT AMBULATING AROUND UNIT. PT HAS STEADY GAIT. NO S/S OF DISTRESS NOTED. WILL CONTINUE TO MONITOR.
--- NOTE | 2019-03-04 22:23 | NUR ---
JANET FARRELL AND RUNNING. PT TOLERATING WELL.
--- NOTE | 2019-03-04 23:29 | NUR ---
BS 164. 2 UNITS OF HUMALOG GIVEN. PT TOLERATED WELL.
[2019-03-05] VITALS: BP 113/77
--- NOTE | 2019-03-05 00:15 | NUR ---
REPORT GIVEN TO JANET CHANG. PT IN STABLE CONDITION.
--- NOTE | 2019-03-05 00:30 | NUR ---
RECEIVED REPORT FROM ERIC CHANG.PT IS IN STABLE CONDITION.NO S/S OF ANY DISTRESS NOTED NOW.WILL CONTINUE MONITORING.
[2019-03-05 04:00] VITALS: BP 104/68
[2019-03-05] MEDS: BLOOD GLUCOSE MONITORING 1 DEV DEV FS SCH ×3 (04:06→12:45)
[2019-03-05] MEDS: INSULIN LISPRO SLIDING SCALE 100 UNITS/ML VIAL SUBQ PRN ×3 (04:18→12:45)
--- NOTE | 2019-03-05 04:37 | NUR ---
PZ=702,2UNITS HUMALOG INSULIN SUB.Q GIVEN.TELE SHOWING SR.IVF IS IN PROGRESS.NO C/O PAIN AND/OR DISCOMFORT.VS STABLE.CALL LIGHT WITHIN REACH.
[2019-03-05 06:22] LABS: BASOPHILS % (AUTO) 0.6 % (0.0-2.0); EOSINOPHILS # (AUTO) 0.2 K/uL (0-0.4); EOSINOPHILS % (AUTO) 4.7 % (0.0-4.0); HEMATOCRIT 25.4 % (36-48); HEMOGLOBIN 8.4 g/dL (12.0-16.0); LYMPHOCYTES # (AUTO) 1.7 K/uL (2.5-16.5); MEAN CORPUSCULAR HEMOGLOBIN 29 pg (27-31); MEAN CORPUSCULAR HGB CONC 33 g/dL (33-37); MEAN CORPUSCULAR VOLUME 86.7 fL (80-94); MONOCYTES # (AUTO) 0.5 K/uL (0.8-1.0); MONOCYTES % (AUTO) 10.3 % (1.7-9.3); NEUTROPHILS # (AUTO) 2.2 K/uL (1.8-7.7); NEUTROPHILS % (AUTO) 47.4 % (42.2-75.2); PLATELET COUNT (AUTO) 284 K/uL (140-450); RED BLOOD CELL COUNT(AUTO) 2.93 MIL/uL (4.20-5.40); RED CELL DISTRIBUTION WIDTH 14.4 % (11.6-13.7); WHITE BLOOD COUNT (AUTO) 4.7 K/uL (4.8-10.8)
[2019-03-05 06:35] LABS: ANION GAP 12.5 (8-16); CARBON DIOXIDE 24.1 mmol/L (21-32); CREATININE 1.1 mg/dL (0.6-1.3); POTASSIUM 3.6 mmol/L (3.5-5.1)
--- NOTE | 2019-03-05 06:37 | NUR ---
SLEPT WELL.NO DISTRESS NOTED AT PRESENT TIME.
[2019-03-05 06:50] LABS: MAGNESIUM 1.8 mg/dL (1.8-2.4); PHOSPHORUS 3.5 mg/dL (2.5-4.9)
--- NOTE | 2019-03-05 07:31 | NUR ---
RECEIVED BEDSIDE REPORT FROM PM RN PT AWAKE IN BED PT APPEARS STABLE AND IN NO APPARENT DISTRESS. ALL SAFETY MEASURES ARE IN PLACE WILL CONTINUE TO MONITOR.
[2019-03-05] MEDS: NACL 0.9% 1,000 ML IV SCH (07:53)
[2019-03-05 08:30] VITALS: BP 144/68
[2019-03-05] MEDS: FERROUS SULFATE 325 MG TABEC PO SCH (09:09)
[2019-03-05] MEDS: DOCUSATE SODIUM 100 MG GELCAP PO SCH (09:09)
[2019-03-05] MEDS: INSULIN LANTUS 100 UNITS/ML 10 ML VIAL SUBQ SCH (09:11)
--- NOTE | 2019-03-05 11:53 | NUR ---
FREQUENT ROUNDING ON PT PT IS ON TELE PT APPEARS STABLE AND IN NO APPARENT DISTRESS. ALL SAFETY MEASURES ARE IN PLACE WILL CONTINUE TO MONITOR
[2019-03-05 12:07] LABS: FOLIC ACID 3.7 ng/mL (>3.0)
[2019-03-05 12:30] VITALS: BP 105/64
--- NOTE | 2019-03-05 12:35 | NUR ---
FINGERSTICK GLUCOSE 240. ADMINISTERED 4UNITS HUMALOG. UPDATED PT ON PLAN FOR DISCHARGE. PT IS OK WITH CHANGE IN PLAN OF CARE
[2019-03-05] MEDS: FAMOTIDINE 20 MG/2 ML VIAL IV SCH (12:40)
--- NOTE | 2019-03-05 13:38 | NUR ---
REMOVED CENTRAL LINE. APPLIED PRESSURE FOR 10 MINUTES. NO MORE BLEEDING AT THE SITE. REMOVED ID BAND. REVIEWED DISCHARGE INSTRUCTIONS REVIEWED MEDICATIONS ANSWERED ALL OF PATIENTS QUESTIONS. PT FAMILY AT BEDSIDE ANSWERED ALL OF THERE QUESTIONS WELL. PT AMBULATED OFF THE UNIT WITH ALL PERSONAL BELONGINGS,
== END 2019-03-05 13:40 | disposition home or self-care (01) | DRG 469 ==
LOC: MED 15:54 → MIC 18:25 → MMU 03-03 16:39
PROVIDERS: ADMIT Internal Medicine Pulmonary Disease; ATTEND Internal Medicine Pulmonary Disease
PROC: 02HV33Z Insertion of Infusion Device into Superior Vena Cava, Percutaneous Approach (ICD-10-PCS; principal; 2019-03-02)
PROC: B548ZZA Ultrasonography of Superior Vena Cava, Guidance (ICD-10-PCS; 2019-03-02)
PROC: 30233N1 Transfusion of Nonautologous Red Blood Cells into Peripheral Vein, Percutaneous Approach (ICD-10-PCS; 2019-03-04)
DX: N17.0 Acute kidney failure with tubular necrosis (principal); E43 Unspecified severe protein-calorie malnutrition; I50.43 Acute on chronic combined systolic (congestive) and diastolic (congestive) heart failure; E11.10 Type 2 diabetes mellitus with ketoacidosis without coma; E11.21 Type 2 diabetes mellitus with diabetic nephropathy; E86.0 Dehydration; E87.1 Hypo-osmolality and hyponatremia; N39.0 Urinary tract infection, site not specified; N18.3 Chronic kidney disease, stage 3 (moderate); D47.3 Essential (hemorrhagic) thrombocythemia; D64.9 Anemia, unspecified; E11.65 Type 2 diabetes mellitus with hyperglycemia; E11.51 Type 2 diabetes mellitus with diabetic peripheral angiopathy without gangrene; I42.9 Cardiomyopathy, unspecified; I50.9 Heart failure, unspecified; Z89.422 Acquired absence of other left toe(s); Z88.0 Allergy status to penicillin
CPT/HCPCS: 36415; 36600; 71045; 80048; 80053; 80305; 81001; 81025; 82009; 82150; 82607; 82728; 82746; 82803; 82948; 83036; 83540; 83605; 83690; 83735; 83880; 84100; 84132; 84439; 84443; 84484; 84703; 85025; 85045; 85610; 85730; 86140; 86886; 86900; 86901; 86920; 87040; 87081; 87086; 87186; 87804; 93005; 96361; 96372; 96374; 96375; 99285; J0696; J1642; J1644; J1815; J2405; J2916; J3411; J3475; J3490; J7030; J7042; J7060; P9016; Q0092; Q0163

== ENCOUNTER 2020-04-23 14:41 | Emergency (ER) | payer OTHER ==
[~2020-04-23] VITALS: Ht 170.2 cm; Wt 67.1 kg
[~2020-04-23 14:41] MED LIST changes: -HUMSLIDE SUBQ; -LEVO750T2 PO
[2020-04-23 14:49] VITALS: BP 136/78
[2020-04-23 16:38] LABS: BASOPHILS # (AUTO) 0.1 K/uL (0.00-0.22); BASOPHILS % (AUTO) 2.1 % (0.0-2.0); EOSINOPHILS # (AUTO) 0.6 K/uL (0-0.4); HEMATOCRIT 24.2 % (36-48); HEMOGLOBIN 7.8 g/dL (12.0-16.0); LYMPHOCYTES # (AUTO) 1.5 K/uL (2.5-16.5); LYMPHOCYTES % (AUTO) 25.7 % (20.5-51.1); MEAN CORPUSCULAR HEMOGLOBIN 28 pg (27-31); MEAN CORPUSCULAR HGB CONC 32 g/dL (33-37); MEAN CORPUSCULAR VOLUME 85.4 fL (80-94); MONOCYTES # (AUTO) 0.4 K/uL (0.8-1.0); MONOCYTES % (AUTO) 6.2 % (1.7-9.3); NEUTROPHILS # (AUTO) 3.2 K/uL (1.8-7.7); PLATELET COUNT (AUTO) 202 K/uL (140-450); RED BLOOD CELL COUNT(AUTO) 2.83 MIL/uL (4.20-5.40); RED CELL DISTRIBUTION WIDTH 18.5 % (11.6-13.7); WHITE BLOOD COUNT (AUTO) 5.8 K/uL (4.8-10.8)
[2020-04-23 16:55] LABS: ALBUMIN 1.3 g/dL (3.4-5.0); ANION GAP 11.3 (8-16); CARBON DIOXIDE 21.7 mmol/L (21-32); TOTAL BILIRUBIN 0.1 mg/dL (0.0-1.0)
[2020-04-23] MEDS: KETOROLAC 30 MG/ML VIAL IM ONE (17:21)
[2020-04-23] MEDS: FUROSEMIDE 40 MG/4 ML VIAL IVP ONE (18:06)
[2020-04-23 18:18] LABS: APPEARANCE,URINE SL CLOUDY (CLEAR); BILIRUBIN,URINE NEGATIVE (NEGATIVE); BLOOD, URINE 2+ (NEGATIVE); COLOR,URINE YELLOW (YELLOW); LEUKOCYTE ESTERASE ,URINE NEGATIVE (NEGATIVE); NITRITE, URINE NEGATIVE (NEGATIVE); UGLUCOSE 2+ (NEGATIVE)
[2020-04-23 18:27] LABS: RBC,URINE 11-20 (MOD) /HPF (0-5); WBC,URINE 0-5 /HPF (0-5)
[2020-04-23 19:17] VITALS: BP 169/92
== END 2020-04-23 19:17 | disposition home or self-care (01) ==
LOC: MED 14:41
DX: F15.10 Other stimulant abuse, uncomplicated (principal); I51.9 Heart disease, unspecified; Z88.0 Allergy status to penicillin; E11.9 Type 2 diabetes mellitus without complications
CPT/HCPCS: 36415; 74176; 80053; 81001; 81025; 83690; 83880; 85025; 96374; 99285; J1940

== ENCOUNTER 2020-05-09 00:30 | Emergency (ER) | payer OTHER ==
[~2020-05-09] VITALS: Ht 172.7 cm; Wt 70.3 kg
[2020-05-09 00:50] VITALS: BP 167/94
[2020-05-09] MEDS ORDERED: LINEZOLID 600MG PREMIX 300 ML IV STA (02:18)
[2020-05-09 02:37] VITALS: BP 155/94
== END 2020-05-09 02:41 | disposition home or self-care (01) ==
LOC: MED 00:30
DX: M86.171 Other acute osteomyelitis, right ankle and foot (principal); I11.9 Hypertensive heart disease without heart failure; Z88.0 Allergy status to penicillin; Z88.8 Allergy status to other drugs, medicaments and biological substances; Z45.2 Encounter for adjustment and management of vascular access device
CPT/HCPCS: 99281; J2020

== ENCOUNTER 2020-05-11 16:59 | Inpatient (IN) | payer OTHER, SELFPAY ==
[~2020-05-11] VITALS: Ht 172.7 cm; Wt 69.9 kg
[2020-05-11 17:05] VITALS: BP 153/98
[2020-05-11] MEDS ORDERED: NACL 0.9% 1,000 ML IV SCH (17:35)
[2020-05-11] MEDS ORDERED: VANCOMYCIN 1,000 MG in DEXTROSE 5% 250 ML IV ONE (17:35)
[2020-05-11] MEDS ORDERED: LEVOFLOXACIN 500 MG/D5W PREMIX 100 ML IV ONE (17:35)
--- NOTE | 2020-05-11 17:45 | NUR ---
34 Y/O FEMALE PRESENTED TO ED FOR SCHEDULED PICC LINE PLACEMENT. AO4, BREATHING EVEN AND UNLABORED, SKIN WARM AND DRY. BED IN LOWEST POSITION, LOCKED, X1 SIDERAIL UP. PMH - DM, CHF, COPD ALLERGY - PCN, PIPERACILLIN, TAZOBACTAM
--- NOTE | 2020-05-11 18:10 | NUR ---
DR. MORROW OKAY WITH WITHOLDING IV MEDS UNTIL PICC LINE IS ESTABLISHED. PO AND IM MEDS TO CONTINUE ORDERED
--- NOTE | 2020-05-11 18:12 | NUR ---
PICC line consent signed by patient and warehouse shipping supervisor made aware.
[2020-05-11 18:18] LABS: BASOPHILS # (AUTO) 0.1 K/uL (0.00-0.22); BASOPHILS % (AUTO) 1.3 % (0.0-2.0); EOSINOPHILS # (AUTO) 0.5 K/uL (0-0.4); EOSINOPHILS % (AUTO) 8.8 % (0.0-4.0); HEMATOCRIT 29.8 % (36-48); HEMOGLOBIN 9.9 g/dL (12.0-16.0); LYMPHOCYTES # (AUTO) 1.5 K/uL (2.5-16.5); LYMPHOCYTES % (AUTO) 28.7 % (20.5-51.1); MEAN CORPUSCULAR HEMOGLOBIN 28 pg (27-31); MEAN CORPUSCULAR HGB CONC 33 g/dL (33-37); MEAN CORPUSCULAR VOLUME 85.9 fL (80-94); MONOCYTES # (AUTO) 0.2 K/uL (0.8-1.0); MONOCYTES % (AUTO) 4.5 % (1.7-9.3); NEUTROPHILS % (AUTO) 56.7 % (42.2-75.2); PLATELET COUNT (AUTO) 246 K/uL (140-450); RED BLOOD CELL COUNT(AUTO) 3.47 MIL/uL (4.20-5.40); WHITE BLOOD COUNT (AUTO) 5.3 K/uL (4.8-10.8)
[2020-05-11 18:25] LABS: APPEARANCE,URINE CLOUDY (CLEAR); BILIRUBIN,URINE NEGATIVE (NEGATIVE); BLOOD, URINE 2+ (NEGATIVE); COLOR,URINE YELLOW (YELLOW); LEUKOCYTE ESTERASE ,URINE NEGATIVE (NEGATIVE); NITRITE, URINE NEGATIVE (NEGATIVE); UGLUCOSE 3+ (NEGATIVE)
[2020-05-11 18:30] LABS: RBC,URINE 11-20 (MOD) /HPF (0-5); WBC,URINE 0-5 /HPF (0-5)
[2020-05-11 18:31] LABS: ALBUMIN 1.5 g/dL (3.4-5.0); ANION GAP 12.6 (8-16); CARBON DIOXIDE 22.9 mmol/L (21-32); CREATININE 2.2 mg/dL (0.6-1.3); POTASSIUM 3.5 mmol/L (3.5-5.1); TOTAL BILIRUBIN 0.1 mg/dL (0.0-1.0)
[2020-05-11] MEDS ORDERED: MORPHINE SULFATE 4 MG/ML SYR IM ONE (19:05)
[2020-05-11] MEDS ORDERED: ONDANSETRON 4 MG ODT PO ONE (19:05)
--- NOTE | 2020-05-11 19:17 | NUR ---
MORPHINE ADMININSTERED RIGHT DELTOID. PATIENT ON MONITOR.
--- NOTE | 2020-05-11 19:18 | NUR ---
REPORT RECIVED FROM TAYA CHANG, CONTINUATION OF CARE.
--- NOTE | 2020-05-11 19:18 | NUR ---
ENDORSEMENT GIVEN TO BERNARDO ADEN FOR CONTINUATION OF CARE
--- NOTE | 2020-05-11 19:24 | NUR ---
ALO SWAB COLLECTED VIA NARES. SAMPLE SENT TO LAB.
--- NOTE | 2020-05-11 20:06 | NUR ---
Patient appears to be resting comfortably in bed. Vital Signs within normal limits. Respirations even and unlabored.
[2020-05-11] MEDS ORDERED: ZOLPIDEM 5 MG TAB PO PRN (20:10)
[2020-05-11] MEDS ORDERED: MAG SULF 2000 MG/WATER PREMIX 50 ML IV PRN (20:10)
[2020-05-11] MEDS ORDERED: ACETAMINOPHEN 325 MG TAB PO PRN (20:10)
[2020-05-11] MEDS ORDERED: POTASSIUM CHLORIDE 10 MEQ TABER PO PRN (20:10)
[2020-05-11] MEDS ORDERED: KCL 20 MEQ/WATER INJ PREMIX 200 ML IV PRN (20:10)
[2020-05-11] MEDS ORDERED: VANCOMYCIN PER PHARMACY MC PRN (20:10)
[2020-05-11] MEDS: NACL 0.9% 1,000 ML IV SCH (20:10)
--- NOTE | 2020-05-11 21:00 | NUR ---
WOUND PICTURES TAKEN AND GIVEN TO BASSEM MORROW TO SIGN. PATIENT DENIES PAIN AT THIS TIME.
--- NOTE | 2020-05-11 22:05 | NUR ---
Patient will be admitted to care of . Admited to MED/SURG. Will go to room 105A. Belongings list completed. Report to MIRZA CHANG.
--- NOTE | 2020-05-11 22:30 | NUR ---
RECEIVED REPORT FROM ER NURSE. PATIENT IS ADMITTED FOR OSTEOMYELITIS AND PICC LINE PLACEMENT. PATIENT IS AWAKE, ALERT, AND COOPERATIVE. RESPIRATION EVEN UNLABORED ON ROOM AIR. NO DISTRESS NOTED. SKIN IS WARM AND DRY. NO IV SITE NOTED. HEART RATE REGULAR. S1&S2 NOTED. LUNGS SOUNDS CLEAR UPON AUSCULTATION. BOWEL SOUNDS PRESENT IN ALL QUADRANTS. ABDOMEN SOFT AND NON-TENDER. LAST BM 05/10/20. OPEN WOUND NOTED ON BILATERAL FOOT. TOE AMPUTATION NOTED ON THE LEFT FOOT 2ND TOE DIGIT AND RIGHT FOOT MIDDLE TOE DIGIT. MRSA SCREEN DONE. VITALS WERE TAKEN. ORIENT PATIENT TO ROOM, STAFF, AND CALL LIGHT. ALL SAFETY MEASURES IN PLACE. BED IS AT LOW POSITION. CALL LIGHT WITHIN REACH. WILL CONTINUE TO MONITOR.
[2020-05-11] MEDS ORDERED: DEXTROSE 50% 50 ML SYR IVP PRN (23:00)
--- NOTE | 2020-05-11 23:00 | NUR ---
PER PATIENT SHE HAS A HISTORY OF DM AND TAKES 20 UNITS OF LANTUS AT BED TIME. CHECK PATIENT BLOOD SUGAR. PATIENT BLOOD SUGAR. 256 WILL NOTIFY MD AND ASK FOR ORDERS.
[2020-05-11] MEDS: INSULIN LANTUS 100 UNITS/ML 10 ML VIAL SUBQ SCH (23:17)
--- NOTE | 2020-05-11 23:20 | NUR ---
MD ORDERED SLIDING SCALE AND LANTUS 20 UNITS AT BEDTIME. LANTUS 20 UNITS GIVEN PER MD ORDER. WILL CONTINUE TO MONITOR
--- NOTE | 2020-05-11 23:25 | NUR ---
UNABLE TO ADMINISTER PATIENT IV ABX DUE TO PATIENT HAVING NO IV SITE ACCESS. PER ER NURSE MD IS AWARE AND THERE'S AN ORDER FOR PICC LINE PLACEMENT. AWAITING FOR PICC LINE NURSE.
[2020-05-11 23:45] VITALS: BP 148/89
--- NOTE | 2020-05-12 01:22 | NUR ---
MADE ROUNDS. PATIENT SLEEPING RESPIRATION EVEN UNLABORED ON ROOM AIR. NO DISTRESS NOTED. WILL CONTINUE TO MONITOR
[2020-05-12 04:00] VITALS: BP 154/90
--- NOTE | 2020-05-12 04:35 | NUR ---
PATIENT IS HUNGRY. PROVIDED FOOD.
--- NOTE | 2020-05-12 04:44 | NUR ---
CALLED PICC LINE NURSE AND LEFT MESSAGE THAT PT NEEDS PICC LINE.
[2020-05-12] MEDS: INSULIN LISPRO SLIDING SCALE 100 UNITS/ML VIAL SUBQ PRN ×2 (06:35→17:15)
[2020-05-12 06:46] LABS: BASOPHILS % (AUTO) 0.7 % (0.0-2.0); EOSINOPHILS # (AUTO) 0.6 K/uL (0-0.4); EOSINOPHILS % (AUTO) 12.8 % (0.0-4.0); HEMATOCRIT 27.6 % (36-48); HEMOGLOBIN 9.2 g/dL (12.0-16.0); LYMPHOCYTES # (AUTO) 1.9 K/uL (2.5-16.5); LYMPHOCYTES % (AUTO) 43.4 % (20.5-51.1); MEAN CORPUSCULAR HEMOGLOBIN 29 pg (27-31); MEAN CORPUSCULAR HGB CONC 34 g/dL (33-37); MEAN CORPUSCULAR VOLUME 85.3 fL (80-94); MONOCYTES # (AUTO) 0.2 K/uL (0.8-1.0); MONOCYTES % (AUTO) 5.6 % (1.7-9.3); NEUTROPHILS # (AUTO) 1.6 K/uL (1.8-7.7); NEUTROPHILS % (AUTO) 37.5 % (42.2-75.2); PLATELET COUNT (AUTO) 190 K/uL (140-450); RED BLOOD CELL COUNT(AUTO) 3.24 MIL/uL (4.20-5.40); RED CELL DISTRIBUTION WIDTH 15.6 % (11.6-13.7); WHITE BLOOD COUNT (AUTO) 4.3 K/uL (4.8-10.8)
[2020-05-12 06:55] LABS: ALBUMIN 1.3 g/dL (3.4-5.0); ANION GAP 10.1 (8-16); CARBON DIOXIDE 24.3 mmol/L (21-32); CHOL/HDL RATIO 5.1 (1-4.5); MAGNESIUM 1.7 mg/dL (1.8-2.4); POTASSIUM 3.4 mmol/L (3.5-5.1)
--- NOTE | 2020-05-12 07:13 | NUR ---
ENDORSED PATIENT TO DAY SHIFT NURSE FOR CONTINUITY OF CARE.
--- NOTE | 2020-05-12 07:15 | NUR ---
RECEIVED PATIENT FROM NIGHT NURSE. PT IS ABLE TO MAKE NEEDS KNOWN. CALL LIGHT IS WITHIN REACH. ALL SAFETY MEASURES ARE IN PLACE. WILL CONTINUE TO MONITOR.
[2020-05-12] MEDS: BLOOD GLUCOSE MONITORING 1 DEV DEV FS SCH ×4 (07:30→21:06)
--- NOTE | 2020-05-12 07:40 | NUR ---
KARIE PICC LINE NURSE CALLED HE WILL COME SOON TI INSERT PICC LINE FOR PT.
[2020-05-12 08:00] VITALS: BP 150/89
--- NOTE | 2020-05-12 08:30 | NUR ---
PATIENT HAS BEEN SCREENED AND CATEGORIZED MODERATE NUTRITION RISK. PATIENT WILL BE SEEN WITHIN 3-5 DAYS OF ADMISSION. 05/14/20 05/16/[address]
[2020-05-12] MEDS: NACL 0.9% 1,000 ML IV SCH ×2 (08:40→21:10)
--- NOTE | 2020-05-12 09:45 | NUR ---
MEDS GIVEN PER MD ORDER. PT EDUCATED AND VERBALIZED UNDERSTANDING. ALL SAFETY MEASURES ARE IN PLACE. NO S/S OF DISTRESS WILL CONTINUE TO MONITOR.
[2020-05-12] MEDS: DOCUSATE SODIUM 100 MG GELCAP PO SCH (09:53)
[2020-05-12] MEDS: ONDANSETRON 4 MG/2 ML VIAL IVP PRN ×2 (09:53→14:07)
[2020-05-12] MEDS: VANCOMYCIN HCL 1.25 GM in DEXTROSE 5% 250 ML IV SCH (09:56)
[2020-05-12] MEDS: MORPHINE SULFATE 4 MG/ML SYR IVP PRN ×2 (10:27→21:18)
--- NOTE | 2020-05-12 11:17 | NUR ---
DC PLANNIN YRS OLD FEMALE PATIENT WAS ADMITTED FROM HOME WITH A DX OF OSTEOMYELITIS. PT HAS A DM , PERIPHERAL NEUROPATHY, SUBSTANCE ABUSE AND CHF. CXR SHOWED NO ACUTE CARDIOPULMONARY DISEASE. TROP 0.113. COVID TEST NEGATIVE, ADMINISTERED IVF, IV ABX LEVAQUIN, VANCOMYCIN AND CONTINUE HOME MEDS. CONSULTED WITH ID, AND PODIATRY DC PLAN TO GO HOME WHEN STABLE CM TO FOLLOW Addendum: 05/12/20 at 1352 by Mackenzie Delgado CM DC SUPERVISOR WRAPPING ROOM: SCHEDULED PATIENT A FOLLOW UP APPOINTMENT APPOINTMENT INFORMATION: PCP ERIK CENTENO Monday 2:00 PM [phone] [address] Addendum: 05/15/20 at 1128 by Montana Hackett SS TAMIR BAÑUELOS FROM PHYSICIANS OFFICE TO RESCHEDULE APPOINTMENT. PATIENT'S APPOINTMENT IS NOW AT 05/19 @ 2:10PM. Addendum: 05/15/20 at 1523 by Montana CRUZ TAMIR FAXED PHYSICIANS ORDER TO IE. TAMIR FAXED CLINICALS TO [facility] [phone]. [facility] CONTACT: [phone]. Addendum: 05/15/20 at 1529 by Josey Childs RN DC PLANNING: SPOKE WITH DR CHEUNG FOR DC PLAN PER MD AWAITING FOR WOUND CULTURE STILL PENDING. CHARGE NURSE PLS CONTACT DR BERNARD FOR POSSIBLE ABX AND FAX IT TO [facility] [phone] AND TO CALL [phone] FOR ABX ORDER THE HOME HEALTH WILL BE [facility] . CM TO FOLLOW Addendum: 05/15/20 at 1534 by Montana Hackett JENNIFER FROM [facility] STATED THAT HE CAN ACCEPT PATIENT. JENNIFER PROVIDED CONTACT INFORMATION [phone]. TAMIR PROVIDED PHONE NUMBER TO HOSPITAL FLOOR [phone]. JENNIFER STATED HE WILL CALL TOMORROW FOR DISCHARGE DATE. Addendum: 05/18/20 at 0920 by Mackenzie Delgado ASHLEY MCCABE RECEIVED ORDER FOR SNF PLACEMENT FOR IV ABX AND WOUND CARE. SPOKE TO PATIENT STATED THAT HOME HEALTH HAS ALREADY BEEN SET UP BUT SHE PREFERS SNF. WILL FAX CONTRACTED FACILITIES. Addendum: 05/18/20 at 1017 by Mackenzie Delgado CM ASHLEY MCCABE: FAXED TO WILL FOLLOW UP. Addendum: 05/18/20 at 1119 by Mackenzie Delgado CM ASHLEY MCCABE: CONTACTED ZENOBIA ESQUIVEL [facility] TO NOTIFY HIM THAT PATIENT WILL NO LONGER NEED HOME HEALTH SERVICES. Addendum: 05/18/20 at 1132 by Mackenzie Delgado CM ASHLEY MCCABE: ZENOBIA FROM [facility] STATED THAT HE CAN HELP US PLACE THIS PATENT IN SNF. FAXED CLINICALS WILL FOLLOW UP. Addendum: 05/18/20 at 1305 by Mackenzie Delgado CM ASHLEY MCCABE: RECEIVED A CALL FROM [facility] HE SENT THE REFERRAL TO [facility] THEY BOTH DENIED PATIENT BECAUSE OF HER DRUG ABUSE. Addendum: 05/18/20 at 1417 by Mackenzie Delgado CM ASHLEY MCCABE: CHIVO BILLS AT [facility] HER DON WAS IN A MEETING EARLIER AND SHE IS REVIEWING PATIENTS CLINICALS. I PROVIDED HER THE NUMBER FOR THE FLOOR TO FOLLOW UP WITH Addendum: 05/19/20 at 1040 by Mackenzie Delgado CM ASHLEY MCCABE: FOLLOWED UP WITH SANJU SHE IS WORKING ON A ROOM FOR THIS PATIENT. ALSO FAXED TO [facility], [facility], [facility], AND [facility]. WILL FOLLOW UP. Addendum: 05/19/20 at 1301 by Mackenzie Delgado CM ASHLEY MCCABE: PER SANJU AT [facility] THEY DO NOT HAVE AN AVAILABLE BED AT THIS TIME. PER ISH AT [facility] THEY CAN ACCEPT THIS PATIENT HOWEVER THEY ARE WORKING ON ROOM CHANGES AT THIS TIME. Addendum: 05/19/20 at 1303 by Mackenzie Delgado CM ASHLEY MCCABE: RECEIVED A PHONE CALL FROM [facility] THEY CAN NOT ACCEPT THIS PATIENT DUE TO HER AGE AND DRUG ABUSE. Addendum: 05/19/20 at 1325 by Mackenzie Delgado CM ASHLEY MCCABE: [facility] IS ABLE TO ACCEPT THIS PATIENT. [address] Addendum: 05/19/20 at 1334 by Mackenzie Delgado CM ASHLEY MCCABE: [facility] [address] [place] [address] [id number] ROOM [address] Addendum: 05/19/20 at 1407 by Mackenzie Delgado ASHLEY MCCABE: PENDING TRANSPORTATION AUTH FROM BRENDA [phone] AT [facility]. Addendum: 05/19/20 at 1521 by Amber Thomas ACID WASHER OPERATOR spoke with Brenda ([phone]) at [facility]; ACID WASHER OPERATOR provided verbal update. Brenda states that she has not yet received the referral; JESSICA has refaxed the SNF referral to [facility]. Brenda states that she needs the dose and duration of antibiotics before she can give authorization to the SNF. ACID WASHER OPERATOR has placed call to pt's nurse for assistance. ACID WASHER OPERATOR placed call to Dr. Mendoza to have him paged regarding the clarification order for IV antibiotics. Addendum: 05/19/20 at 1537 by Amber Thomas CM Transportation auth: [id number]; transportation set up with [facility] for will call ([phone]). [facility] spoke with Clyde at [facility] and provided auth: [id number]. Clyde states that pt is able to come today; please call Clyde/[facility] prior to alert [facility] of poultry picking machine tender time. [facility] has communicated with pt's nurse; pending DC order at this time with dose and duration of IV antibiotics. Addendum: 05/20/20 at 0904 by Josey Childs RN DC PLANNING: CALLED DR MENDOZA REGARDING A DISCHARGE ORDER THAT SNF WAS AVAILABLE YESTERDAY. DR MENDOZA STATED DIDN'T GET ANY TEXT OR MESSAGE FROM THE NURSES. TELEPHONE ORDER OK TO DC TO SNF WITH IV ABX AND TO ASK DR BERNARD FOR ANTIBIOTICS.. CALLED DR BERNARD AND ORDERED VANCOMYCIN CAN BE CONTINUED IV FOR 6 WEEKS FROM STARTING AND LEVAQUIN AND FLAGYL CAN BE PO FOR 6 WEEKS FROM THE START. CM TO FOLLOW Addendum: 05/20/20 at 919 by Mackenzie Delgado CM ASHLEY MCCABE: FAXED ORDER FOR IV ABX TO [facility] AND [facility]. ARRANGED TRANSPORTATION WITH [facility] FOR 1015 AM. NOTIFIED BERNARDO ONEILL Addendum: 05/20/20 at 920 by Mackenzie Delgado CM ASHLEY MCCABE: [facility] [address] [place] [address]
--- NOTE | 2020-05-12 13:08 | NUR ---
SOCIAL WORK NOTE: Patient's Orientation Unable To Assess Information Provided By CIARAN RICHARDSON - SIGNIFICANT OTHER Comments SW WAS UNABLE TO MEET PATIENT AT BEDSIDE. SW COMPLETED ASSESSMENT WITH PATIENT AT SIGNIFICANT OTHER. Pattern Hanger, Realtionship and Phone Number CIARAN RICHARDSON SIGNIFICANT OTHER [phone] Healthcare Power of Equity Sales Assistant No Does Patient Have a POLST No Identifying Problems No Social Work Triggers Is A Social Work Consult Needed No Mandate Report Filed No Explanation Of Identifying Problems PATIENT IS A 34-YEAR-OLD FEMALE ADMITTED FOR OSTEOMYELITIS. PATIENT HAS PMHX OF CHF AND DIABETES. SIGNIFICANT OTHER REPORTS NO HISTORY OF USBSTANCE ABUSE OR MENTAL HEALTH. Admitted From Home Pre-Admission Level Of Functioning Status Independent/Ambulatory Prior Resources/Services Used In Last 12 Months No Prior Resources Used Prior DME No Prior DME Used Dialysis Comments N/A Living Situation Lives W/Significant Other House Patient Had Caregiver No Home Support No Caregiver Issues Financial Issues No Known Financial Issue Factors/Needs No D/C Needs Identified Pt/Rep Participated In Discharge Plan Yes Patient/Family Agress With Discharge Plan Yes Discharge Plan Comments TENTATIVE DISCHARGE PLAN IS FOR PATIENT TO RETURN HOME. DC Plan Status Initiated
--- NOTE | 2020-05-12 14:14 | NUR ---
PT COMPLAINED OF NAUSEA. PRN GIVEN PER MD ORDER. K WAS LOW. MEDICATION GIVEN PER MD ORDER. PT EDUCATED AND VERBALIZED UNDERSTANDING. PT TOLERATED WELL. NO S/S OF DISTRESS. ALL SAFETY MEASURES ARE IN PLACE
[2020-05-12 16:00] VITALS: BP 148/98
[2020-05-12] MEDS ORDERED: MAGNESIUM OXIDE 400 MG TAB PO ONE (16:25)
--- NOTE | 2020-05-12 16:40 | NUR ---
BG ASSESSED,. INSULIN COVERAGE GIVEN PER PROTOCOL. PT EDUCATED. NO S/S OF DISTRESS. WILL CONTINUE TO MONITOR.
--- NOTE | 2020-05-12 19:35 | NUR ---
ENDORSED PT TO OUTREACH PROFESSIONAL NURSE FOR CONTINUITY OF CARE.
--- NOTE | 2020-05-12 19:36 | NUR ---
RECD. RESTING IN BED, AWAKE, A/OX4. RESPIRATION EVEN AND UNLABORED. IV OF NS AT 80 ML/HR INFUSING, RIGHT UPPER ARM PICC LINE. LEFT FOOT WITH WOUND IN THE PLANTAR AREA COVERED WITH DRESSING DRY AND INTACT. RIGHT FOOT WITH SURGICAL WOUND COVERED WITH DRESSING DRY AND INTACT. MEDICATIONS AND CARE FOR THE SHIFT DISCUSSED. VERBALIZED UNDERSTANDING. PAIN IN HT RIGHT FOOT 03/15, WILL MEDICATE PER MD ORDER. SAFETY MEASURES ENFORCED. BED IN THE LOWEST POSITION, CALL LIGHT IN REACH. USES BSC.
[2020-05-12 20:00] VITALS: BP 135/89
--- NOTE | 2020-05-12 21:00 | NUR ---
Patient's Plan of Care was discussed and reviewed with ONLINE MARKETING DIRECTOR: AMEENA FAUSTIN
--- NOTE | 2020-05-12 21:06 | NUR ---
BLOOD SUGAR CHECKED -108, NO COVERAGE.
[2020-05-12] MEDS: INSULIN LANTUS 100 UNITS/ML 10 ML VIAL SUBQ SCH (21:10)
--- NOTE | 2020-05-12 22:00 | NUR ---
REQUEST FOR TWO SANDWICHES FOR SNACK TONIGHT. ATE 100%.
[2020-05-13] MEDS: NACL 0.9% 1,000 ML IV SCH ×4 (01:04→22:10)
--- NOTE | 2020-05-13 02:34 | NUR ---
PATIENT CALLED STATED HER BLOOD SUGAR IS LOW. CHECKED BS - 39. WILL GIVE D50.
--- NOTE | 2020-05-13 02:48 | NUR ---
D50 GIVEN IVP BY BENRARDO THOMAS.
--- NOTE | 2020-05-13 03:40 | NUR ---
BLOOD SUGAR CHECKED - 135. STATED FEELING BETTER.
[2020-05-13 04:00] VITALS: BP 115/71
--- NOTE | 2020-05-13 05:00 | NUR ---
SLEEPING COMFORTABLY IN BED.
--- NOTE | 2020-05-13 06:00 | NUR ---
WANTS TO EAT. INFORMED SHE IS SCHEDULED FOR INCISION AND DEBRIDEMENT TODAY AT 1200, AND SHE CANNOT EAT. STATED "IF I WILL NOT BE ALLOWED TO EAT, I WILL NOT HAVE DONE TODAY.". TRIED TO LOOK FOR PAGE/PHONE OF LON PEREZ TO INQUIRED IF PATIENT CAN EAT.
--- NOTE | 2020-05-13 06:10 | NUR ---
RUSS MEAT PRESS OPERATOR PAGED DR. FRANZ. WILL WAIT FOR RETURN CALL.
[2020-05-13] MEDS: BLOOD GLUCOSE MONITORING 1 DEV DEV FS SCH ×4 (06:37→20:46)
--- NOTE | 2020-05-13 06:37 | NUR ---
BLOOD SUGAR CHECKED - 133. RESTING IN BED COMFORTABLY.
[2020-05-13 06:54] LABS: BASOPHILS % (AUTO) 0.8 % (0.0-2.0); EOSINOPHILS # (AUTO) 0.5 K/uL (0-0.4); HEMATOCRIT 31.2 % (36-48); HEMOGLOBIN 10.2 g/dL (12.0-16.0); LYMPHOCYTES # (AUTO) 1.2 K/uL (2.5-16.5); LYMPHOCYTES % (AUTO) 28.5 % (20.5-51.1); MEAN CORPUSCULAR HEMOGLOBIN 28 pg (27-31); MEAN CORPUSCULAR HGB CONC 33 g/dL (33-37); MEAN CORPUSCULAR VOLUME 86.2 fL (80-94); MONOCYTES # (AUTO) 0.2 K/uL (0.8-1.0); NEUTROPHILS # (AUTO) 2.3 K/uL (1.8-7.7); NEUTROPHILS % (AUTO) 53.7 % (42.2-75.2); PLATELET COUNT (AUTO) 208 K/uL (140-450); RED BLOOD CELL COUNT(AUTO) 3.62 MIL/uL (4.20-5.40); RED CELL DISTRIBUTION WIDTH 16.3 % (11.6-13.7); WHITE BLOOD COUNT (AUTO) 4.3 K/uL (4.8-10.8)
[2020-05-13 07:22] LABS: ALBUMIN 1.3 g/dL (3.4-5.0); ANION GAP 13.3 (8-16); CARBON DIOXIDE 23.6 mmol/L (21-32); CREATININE 1.9 mg/dL (0.6-1.3); MAGNESIUM 1.7 mg/dL (1.8-2.4); POTASSIUM 3.9 mmol/L (3.5-5.1); TOTAL BILIRUBIN 0.1 mg/dL (0.0-1.0)
--- NOTE | 2020-05-13 07:30 | NUR ---
ENDORSED TO AM SHIFT NURSE FOR CONTINUITY OF CARE.
[2020-05-13 08:00] VITALS: BP 152/94
[2020-05-13] MEDS: DOCUSATE SODIUM 100 MG GELCAP PO SCH (09:00)
[2020-05-13] MEDS: metroNIDAZOLE 500 MG TAB PO SCH ×3 (09:00→18:30)
[2020-05-13] MEDS ORDERED: levoFLOXacin 500 MG TAB PO SCH ×2 (09:00)
[2020-05-13] MEDS: ONDANSETRON 4 MG/2 ML VIAL IVP PRN (09:08)
[2020-05-13] MEDS: VANCOMYCIN HCL 1.25 GM in DEXTROSE 5% 250 ML IV SCH (09:10)
--- NOTE | 2020-05-13 10:02 | NUR ---
Patient NPO for scheduled procedure per Dr Easton for surgery scheduled at noon. Oral meds withheld with Heparin until after procedure.
--- NOTE | 2020-05-13 10:51 | NUR ---
WOUND CARE CONSULT TO INFECTED FOOT NOT DONE. PT. SEEN AND FOLLOW UP BY IN HOUSE PODIATRY TEAM. SCHEDULE SURGERY AT 12PM ON 05/13/[address] SIVAKUMAR TEE DPM.
--- NOTE | 2020-05-13 11:15 | NUR ---
RECEIVED CALL FROM LAB STATING PT IS POSITIVE FOR MRSA IN NARES. NURSE ASSIGNED AND MD MADE AWARE. AWAITING ORDERS
[2020-05-13] MEDS ORDERED: BUPIVACAINE-MPF 0.5% 30 ML VIAL INJ ONE (11:44)
[2020-05-13] MEDS ORDERED: DEXAMETHASONE 4 MG/ML VIAL ONE ×3 (12:06→12:32)
[2020-05-13] MEDS ORDERED: ONDANSETRON 4 MG/2 ML VIAL IVP PRN (12:15)
[2020-05-13] MEDS ORDERED: BLOOD GLUCOSE MONITORING 1 DEV DEV FS SCH (12:15)
[2020-05-13] MEDS ORDERED: HYDROmorphone 1 MG/ML AMP IVP PRN (12:15)
[2020-05-13] MEDS ORDERED: MEPERIDINE 25 MG/ML SYR IVP PRN (12:15)
[2020-05-13] MEDS ORDERED: diphenhydrAMINE 50 MG/ML VIAL IVP PRN (12:15)
[2020-05-13] MEDS ORDERED: PROPOFOL 200 MG/20 ML VIAL IV ONE (12:32)
[2020-05-13] MEDS ORDERED: ePHEDrine 50 MG/ML VIAL ONE (12:32)
[2020-05-13] MEDS ORDERED: METOCLOPRAMIDE 10 MG/2 ML INJ VIAL ONE (12:32)
[2020-05-13] MEDS ORDERED: fentaNYL citrate 0.05 MG/ML VIAL ONE (12:32)
[2020-05-13] MEDS ORDERED: LIDOCAINE 2% 100 MG/5 ML SYR IVP ONE (12:32)
[2020-05-13] MEDS ORDERED: SEVOFLURANE 250 ML BTL INH ONE (12:32)
[2020-05-13] MEDS ORDERED: MAGNESIUM OXIDE 400 MG TAB PO SCH (15:00)
[2020-05-13 16:00] VITALS: BP 155/83
[2020-05-13] MEDS: MUPIROCIN CA NASAL 2% 1GM TUBE NS SCH (16:52)
[2020-05-13] MEDS: HYDROcodone/APAP 5/325 MG 1 TAB TAB PO PRN (16:53)
[2020-05-13] MEDS: CHLORHEXADINE GLUC 2% CLOTH TP SCH (16:54)
[2020-05-13] MEDS: INSULIN LISPRO SLIDING SCALE 100 UNITS/ML VIAL SUBQ PRN (17:20)
--- NOTE | 2020-05-13 17:46 | NUR ---
Patient had surgical procedure to right foot. Dressing applied by surgeon is intact and has no drainage. Vitals stable, had complaints and was given medication as ordered. Blood sugar @352 and 10 units of insulin administered. Educated patient on maintaining blood sugar within parameters by following dietary recommendations and patient verbalized understanding.
[2020-05-13 20:00] VITALS: BP 123/72
--- NOTE | 2020-05-13 20:00 | NUR ---
RECEIVED PATIENT A/A/OX3, SITTING UP IN BED DURING ROUNDS AT THE CHANGE OF SHIFT. S/P I AND D OF THE RIGHT FOOT. DRESSINGS ON BOTH FEET C/D/I. + PALPABLE POPLITEAL PULSE BILATERAL. PATIENT ABLE TO WIGGLE TOES. DENIES ANY NUMBNESS AND TINGLING ON BLE. PATENT DENIES ANY PAIN AT THIS TIME. IVF INFUSING ORDERED. PATIENT BLOOD SUGAR IS 509. PAGED THE OPS MANAGER MD JENKINS AND AWARE. ORDERED TO GIVE 20 UNITS OF THE INSULIN SLIDING SCALE. ISOLATION AND FALL PRECAUTION IMPLEMENTED. INSTRUCTED THE PT TO CALL FOR ASSISTANCE AT ALL TIMES. APTIENT VERBALIZED UNDERSTANDING WITH THE POC. CALL LIGHT WITHIN REACH. WILL CONTINUE POC.
[2020-05-13] MEDS ORDERED: INSULIN LISPRO 100 UNITS/ML VIAL SUBQ SCH (20:05)
[2020-05-13] MEDS: INSULIN LANTUS 100 UNITS/ML 10 ML VIAL SUBQ SCH (20:45)
[2020-05-13] MEDS: MORPHINE SULFATE 4 MG/ML SYR IVP PRN (20:50)
--- NOTE | 2020-05-13 22:00 | NUR ---
ADMINISTERED ALL THE SCHEDULED MEDICATIONS EARLIER ORDERED. PATIENT TOLERATED IT WELL. NO ADVERSE REACTION AND COMPLAIN FROM THE PATIENT. CALL LIGHT WITHIN REACH.
--- NOTE | 2020-05-13 23:57 | NUR ---
PATIENT CALLED AND ASKING FOR A SANDWICH. RECHECKED THE PATIENT BLOOD SUGAR FIRST BECAUSE PATIENT WAS GIVEN A 20 UNITS LANTUS SCHEDULED AND DR JENKINS ORDERED TO GIVE 20 UNITS PER SLIDING SCALE (HUMALOG). PATIENT BLOOD SUGAR NOW IS 464. PATIENT MADE AWARE THAT SHE CANNOT HAVE A SANDWICH BECAUSE HER BLOOD SUGAR IS HIGH. PAGED DR JENKINS AND MADE AWARE OF THE PATIENT LATEST BLOOD SUGAR. AWAITING FOR MD TO CALL OR TEXT BACK.
--- NOTE | 2020-05-14 00:01 | NUR ---
DR JENKINS TEXTED BACK AND AWARE OF THE PATIENT LATEST BLOOD SUGAR 464. MD ORDERED TO GIVE ADDITIONAL 10 UNITS OF INSULIN LISPRO SLIDING SCALE.
[2020-05-14] MEDS ORDERED: INSULIN LISPRO 100 UNITS/ML VIAL SUBQ SCH (00:05)
--- NOTE | 2020-05-14 02:24 | NUR ---
PATIENT ASLEEP AT THIS TIME. VISIBLE CHEST RISE AND FALL NOTED. CALL LIGHT WITHIN REACH.
[2020-05-14 04:00] VITALS: BP 117/73
--- NOTE | 2020-05-14 04:00 | NUR ---
PATIENT VITAL SIGNS STABLE, AFEBRILE, SATING 99% ON RA. NO COMPLAIN OF PAIN AT THIS TIME.
[2020-05-14] MEDS: ONDANSETRON 4 MG/2 ML VIAL IVP PRN (05:45)
[2020-05-14] MEDS: NACL 0.9% 1,000 ML IV SCH ×2 (05:47→20:21)
[2020-05-14] MEDS: BLOOD GLUCOSE MONITORING 1 DEV DEV FS SCH ×4 (06:00→20:27)
[2020-05-14] MEDS: INSULIN LISPRO SLIDING SCALE 100 UNITS/ML VIAL SUBQ PRN ×4 (06:00→20:26)
[2020-05-14 06:39] LABS: ALBUMIN 1.4 g/dL (3.4-5.0); ANION GAP 12.4 (8-16); CARBON DIOXIDE 20.9 mmol/L (21-32); CREATININE 2.1 mg/dL (0.6-1.3); MAGNESIUM 1.6 mg/dL (1.8-2.4); POTASSIUM 4.3 mmol/L (3.5-5.1); TOTAL BILIRUBIN 0.1 mg/dL (0.0-1.0)
[2020-05-14 06:44] LABS: BASOPHILS % (AUTO) 0.2 % (0.0-2.0); EOSINOPHILS % (AUTO) 0.2 % (0.0-4.0); HEMATOCRIT 27.9 % (36-48); HEMOGLOBIN 9.2 g/dL (12.0-16.0); LYMPHOCYTES % (AUTO) 16.4 % (20.5-51.1); MEAN CORPUSCULAR HEMOGLOBIN 28 pg (27-31); MEAN CORPUSCULAR HGB CONC 33 g/dL (33-37); MEAN CORPUSCULAR VOLUME 85.9 fL (80-94); MONOCYTES # (AUTO) 0.3 K/uL (0.8-1.0); MONOCYTES % (AUTO) 5.3 % (1.7-9.3); NEUTROPHILS # (AUTO) 4.7 K/uL (1.8-7.7); NEUTROPHILS % (AUTO) 77.9 % (42.2-75.2); PLATELET COUNT (AUTO) 196 K/uL (140-450); RED BLOOD CELL COUNT(AUTO) 3.25 MIL/uL (4.20-5.40); RED CELL DISTRIBUTION WIDTH 15.4 % (11.6-13.7); WHITE BLOOD COUNT (AUTO) 6.1 K/uL (4.8-10.8)
--- NOTE | 2020-05-14 06:49 | NUR ---
PATIENT STABLE. NO COMPLAIN AT THIS TIME. NO ACUTE EVENT THROUGHOUT THE NIGHT. CALL LIGHT WITHIN REACH. WILL ENDORSE THE PT TO THE ONCOMING RN FOR CONTINUITY OF CARE.
--- NOTE | 2020-05-14 07:10 | NUR ---
PT RECEIVED FROM NIGHT NURSE. PT IS RESTING IN BED. NO S/S OF DISTRESS. CALL LIGHT IS WITHIN REACH. ALL SAFETY MEASURES IN PLACE. PT IS ABLE TO MAKE NEEDS KNOWN. WILL CONTINUE TO MONITOR.
[2020-05-14 08:00] VITALS: BP 118/79
[2020-05-14] MEDS: metroNIDAZOLE 500 MG TAB PO SCH ×3 (08:19→16:39)
[2020-05-14] MEDS: DOCUSATE SODIUM 100 MG GELCAP PO SCH (08:19)
[2020-05-14] MEDS: levoFLOXacin 250 MG TAB PO SCH (08:25)
--- NOTE | 2020-05-14 08:37 | NUR ---
MEDICATIONS GIVEN PER MD ORDER. PT EDUCATED AND VERBALIZED UNDERSTANDING. PT TOLERATED WELL. NO S/S OF DISTRESS. CALL LIGHT IS WITHIN REACH. ALL SAFETY MEASURES IN PLACE. WILL CONTINUE TO MONITOR.
[2020-05-14] MEDS: MORPHINE SULFATE 4 MG/ML SYR IVP PRN ×2 (09:16→20:16)
--- NOTE | 2020-05-14 10:20 | NUR ---
PT REASSESSED FOR PAIN. PT DENIED ANY AT THIS TIME. PT WAS ASLEEP BUT EASY TO AROUSE. NO S/S OF DISTRESS. CALL LIGHT IS WITHIN REACH. ALL SAFETY MEASURES IN PLACE. WILL CONTINUE TO MONITOR.
--- NOTE | 2020-05-14 11:30 | NUR ---
BLOOD GLUCOSE ASSESSED . INSULIN COVERAGE GIVEN PER PROTOCOL. PT EDUCATED. NEEDS REINFORCEMENT.PT IS RESTING IN BED. NO S/S OF DISTRESS. CALL LIGHT IS WITHIN REACH. ALL SAFETY MEASURES IN PLACE. WILL CONTINUE TO MONITOR.
[2020-05-14 12:00] VITALS: BP 118/79
--- NOTE | 2020-05-14 13:00 | NUR ---
MEDICATION GIVEN PER MD ORDER. PT EDUCATED. NEEDS REINFORCEMENT.PT IS RESTING IN BED. NO S/S OF DISTRESS. CALL LIGHT IS WITHIN REACH. ALL SAFETY MEASURES IN PLACE. WILL CONTINUE TO MONITOR.
[2020-05-14] MEDS: MUPIROCIN CA NASAL 2% 1GM TUBE NS SCH (13:26)
[2020-05-14] MEDS: CHLORHEXADINE GLUC 2% CLOTH TP SCH (13:31)
--- NOTE | 2020-05-14 15:55 | NUR ---
PT ASKED FOR A SANDWICH . PT EDUCATED ON DIET. PT NEEDS REINFORCEMENT. APPROPRIATE SNACK WAS PROVIDED. NO S/S OF DISTRESS. CALL LIGHT IS WITHIN REACH. ALL SAFETY MEASURES IN PLACE. WILL CONTINUE TO MONITOR.
--- NOTE | 2020-05-14 18:46 | NUR ---
PT IS SITTING IN BED LISTENING TO MUSIC. COMPLAINS OF DISCOMFORT BUT REFUSED PAIN MEDICATION. PT EDUCATED. NO S/S OF DISTRESS. CALL LIGHT IS WITHIN REACH. ALL SAFETY MEASURES IN PLACE. WILL CONTINUE TO MONITOR.
--- NOTE | 2020-05-14 19:05 | NUR ---
PT ENDORSED FOR CONTINUITY OF CARE.
[2020-05-14 20:00] VITALS: BP 141/84
--- NOTE | 2020-05-14 20:00 | NUR ---
RECEIVED PATIENT A/A/OX3, SITTING UP IN BED DURING ROUNDS AT THE CHANGE OF SHIFT. S/P I AND D OF THE RIGHT FOOT 05/13/20. DRESSINGS ON BOTH FEET C/D/I. + PALPABLE POPLITEAL PULSE BILATERAL. PATIENT ABLE TO WIGGLE TOES. DENIES ANY NUMBNESS AND TINGLING ON BLE. VSS, AFEBRILE, SATING 100% ON RA. PATENT C/O PAIN ON HER RT FOOT. WILL MEDICATED THE PT FOR PAIN ORDERED. IVF INFUSING ORDERED. ISOLATION AND FALL PRECAUTION IMPLEMENTED. INSTRUCTED THE PT TO CALL FOR ASSISTANCE AT ALL TIMES. PATIENT VERBALIZED UNDERSTANDING WITH THE POC. CALL LIGHT WITHIN REACH. WILL CONTINUE POC.
[2020-05-14] MEDS: INSULIN LANTUS 100 UNITS/ML 10 ML VIAL SUBQ SCH (20:25)
--- NOTE | 2020-05-14 22:00 | NUR ---
ADMINISTERED ALL THE SCHEDULED MEDICATIONS EARLIER ORDERED. PATIENT TOLERATED IT WELL. NO ADVERSE REACTION NOTED AND NO COMPLAIN FROM THE PATIENT. CALL LIGHT WITHIN REACH.
--- NOTE | 2020-05-15 02:00 | NUR ---
PATIENT ASLEEP AT THIS TIME. VISIBLE CHEST RISE AND FALL NOTED. CALL LIGHT WITHIN REACH.
[2020-05-15 04:00] VITALS: BP 145/79
--- NOTE | 2020-05-15 04:00 | NUR ---
PATIENT VITAL SIGNS STABLE, AFEBRILE, SATING 100% ON RA. NO COMPLAIN OF PAIN AT THIS TIME.
[2020-05-15] MEDS: MORPHINE SULFATE 4 MG/ML SYR IVP PRN ×3 (05:04→20:33)
[2020-05-15] MEDS: BLOOD GLUCOSE MONITORING 1 DEV DEV FS SCH ×4 (06:03→20:43)
[2020-05-15 06:43] LABS: ALBUMIN 1.1 g/dL (3.4-5.0); ANION GAP 11.5 (8-16); CARBON DIOXIDE 19.6 mmol/L (21-32); CREATININE 2.2 mg/dL (0.6-1.3); MAGNESIUM 2.3 mg/dL (1.8-2.4); POTASSIUM 4.1 mmol/L (3.5-5.1)
[2020-05-15 06:47] LABS: BASOPHILS % (AUTO) 0.8 % (0.0-2.0); EOSINOPHILS # (AUTO) 0.4 K/uL (0-0.4); EOSINOPHILS % (AUTO) 7.9 % (0.0-4.0); HEMOGLOBIN 8.3 g/dL (12.0-16.0); LYMPHOCYTES # (AUTO) 2.2 K/uL (2.5-16.5); MEAN CORPUSCULAR HEMOGLOBIN 29 pg (27-31); MEAN CORPUSCULAR HGB CONC 33 g/dL (33-37); MEAN CORPUSCULAR VOLUME 86.7 fL (80-94); MONOCYTES # (AUTO) 0.3 K/uL (0.8-1.0); MONOCYTES % (AUTO) 4.8 % (1.7-9.3); NEUTROPHILS # (AUTO) 2.5 K/uL (1.8-7.7); NEUTROPHILS % (AUTO) 45.5 % (42.2-75.2); PLATELET COUNT (AUTO) 185 K/uL (140-450); RED BLOOD CELL COUNT(AUTO) 2.88 MIL/uL (4.20-5.40); WHITE BLOOD COUNT (AUTO) 5.4 K/uL (4.8-10.8)
--- NOTE | 2020-05-15 07:10 | NUR ---
RECEIVED REPORT FROM NIGHT NURSE FOR CONTINUITY OF CARE. PATIENT STABLE AND SLEEPING. WILL CONTINUE TO MONITOR.
[2020-05-15] MEDS: metroNIDAZOLE 500 MG TAB PO SCH ×3 (08:30→16:43)
--- NOTE | 2020-05-15 08:30 | NUR ---
PATIENT ATE 100% OF BREAKFAST. NO SIGNS OF DISTRESS. REPORTS NO PAIN. ADMINISTERED SCHEDULES AM MEDS. ASSISTED PATIENT TO THE RESTROOM. WILL CONTINUE TO MONITOR.
[2020-05-15] MEDS: levoFLOXacin 250 MG TAB PO SCH (08:31)
[2020-05-15] MEDS: DOCUSATE SODIUM 100 MG GELCAP PO SCH (08:31)
[2020-05-15] MEDS: VANCOMYCIN 750 MG in DEXTROSE 5% 250 ML IV SCH (08:31)
--- NOTE | 2020-05-15 10:00 | NUR ---
BROUGHT WATER PER PATIENT REQUEST. PATIENT RESTING. WILL CONTINUE TO MONITOR.
[2020-05-15] MEDS: INSULIN LISPRO SLIDING SCALE 100 UNITS/ML VIAL SUBQ PRN ×3 (11:28→20:42)
--- NOTE | 2020-05-15 11:30 | NUR ---
CHECKED BLOOD SUGAR, 271, COVERED WITH 6 UNITS PER SLIDING SCALE. NS BAG EMPTY, REPLACED WITH NEW BAG OF NS. PATIENT SHOWS NO SIGNS OF DISTRESS AND IS RESTING. WILL CONTINUE TO MONITOR.
[2020-05-15] MEDS: NACL 0.9% 1,000 ML IV SCH ×2 (11:32→23:39)
[2020-05-15] MEDS: MUPIROCIN CA NASAL 2% 1GM TUBE NS SCH (12:53)
[2020-05-15] MEDS: CHLORHEXADINE GLUC 2% CLOTH TP SCH (12:54)
--- NOTE | 2020-05-15 12:55 | NUR ---
PATIENT SHOWED NO SIGN OF DISTRESS. COMPLAINT OF PAIN, LEVEL 10, GAVE MORPHINE. ADMINISTERED AFTERNOON SCHEDULED MEDS. WILL CONTINUE TO MONITOR.
--- NOTE | 2020-05-15 14:50 | NUR ---
05/15/20 RD INITIAL ASSESSMENT COMPLETED PLEASE REFER TO NUTRITION ASSESSMENT UNDER CARE ACTIVITY FOR ESTIMATED NUTRITIONAL NEEDS. 1. CONTINUE CARDIAC CCHO DIET TOLERATED 2. RECOMMEND MARCELA BID 3. RD PROVIDE NUTRITION EDUCATION FOR CONSISTENT CARBOHYDRATE INTAKE AND CHF. PT ACCEPTED. 4. RD TO FOLLOW-UP 3-5 DAYS, MODERATE RISK JIM COYNE RD
--- NOTE | 2020-05-15 15:32 | NUR ---
POST OP SHOES PROVIDED TO THE PATIENT.
[2020-05-15 16:00] VITALS: BP 169/94
--- NOTE | 2020-05-15 16:13 | NUR ---
RECEIVED ENDORSEMENT FROM CASE MANAGEMENT [facility] REGARDING WHEN PT BLOOD CULTURE COMES BACK TO CALL DR BERNARD AND TO FAX MEDICATION ORDER TO [facility] @ [phone].
--- NOTE | 2020-05-15 16:45 | NUR ---
PATIENT SHOWS NO SIGN OF DISTRESS OR PAIN. CHECKED BLOOD SUGAR, 191, COVERED WITH 2 UNITS PER SLIDING SCALE. ADMINISTERED EVENING MEDICATIONS. WILL CONTINUE TO MONITOR.
--- NOTE | 2020-05-15 17:55 | NUR ---
TALKED TO DR CHEUNG REGARDING PT NEEDS ECHO ORDERED, PER PT CAME IN FOR OSTEOMYLITIS THERE IS NO INDICATION FOR ECHO, PT SHOULD GET ECHO OUT PT.
--- NOTE | 2020-05-15 19:24 | NUR ---
ENDORSED CARE TO ABALONE SHELLER RN FOR CONTINUITY OF CARE. PATIENT STABLE AND COMFORTABLE, SHOWING NO SIGNS OF DISTRESS OR PAIN.
--- NOTE | 2020-05-15 19:55 | NUR ---
RECEIVED PT A/A/AOX4, AMBULATED TO THE BATHROOM AND TOLERATED IT WELL. NO SIGN AND SYMPTOMS OF DISTRESS NOTED. NO COMPLAIN AT THIS TIME. IVF INFUSING ORDERED. FALL PRECAUTION AND ISOLATION PRECAUTION IMPLEMENTED. INSTRUCTED TO CALL FOR ASSISTANCE AT ALL TIMES. CALL LIGHT WITHIN REACH. WILL CONTINUE POC.
[2020-05-15 20:00] VITALS: BP 115/69
[2020-05-15] MEDS: ONDANSETRON 4 MG/2 ML VIAL IVP PRN (20:35)
[2020-05-15] MEDS: INSULIN LANTUS 100 UNITS/ML 10 ML VIAL SUBQ SCH (20:41)
--- NOTE | 2020-05-15 22:00 | NUR ---
ADMINISTERED ALL THE SCHEDULED MEDICATIONS EARLIER ORDERED. PATIENT TOLERATED IT WELL. NO ADVERSE DRUG REACTION NOTED AND NO COMPLAIN FROM THE PATIENT. CALL LIGHT WITHIN REACH.
--- NOTE | 2020-05-16 | NUR ---
MADE ROUNDS. PATIENT SLEEPING AT THIS TIME. NOT IN ANY DISTRESS.
--- NOTE | 2020-05-16 02:00 | NUR ---
PATIENT ASLEEP AT THIS TIME. VISIBLE CHEST RISE AND FALL NOTED. CALL LIGHT WITHIN REACH.
[2020-05-16 04:00] VITALS: BP 132/79
--- NOTE | 2020-05-16 04:00 | NUR ---
PATIENT VITAL SIGNS STABLE, AFEBRILE, SATING 100% ON RA. NO COMPLAIN OF PAIN AT THIS TIME. CALL LIGHT WITHIN REACH.
[2020-05-16 05:59] LABS: ALBUMIN 1.2 g/dL (3.4-5.0); ANION GAP 10.4 (8-16); CARBON DIOXIDE 21.7 mmol/L (21-32); CREATININE 2.3 mg/dL (0.6-1.3); MAGNESIUM 2.2 mg/dL (1.8-2.4); POTASSIUM 5.1 mmol/L (3.5-5.1); TOTAL BILIRUBIN 0.1 mg/dL (0.0-1.0)
[2020-05-16] MEDS: BLOOD GLUCOSE MONITORING 1 DEV DEV FS SCH ×4 (06:12→19:59)
[2020-05-16 06:38] LABS: EOSINOPHILS # (AUTO) 0.6 K/uL (0-0.4); EOSINOPHILS % (AUTO) 12.1 % (0.0-4.0); HEMATOCRIT 25.2 % (36-48); HEMOGLOBIN 8.2 g/dL (12.0-16.0); LYMPHOCYTES # (AUTO) 1.9 K/uL (2.5-16.5); LYMPHOCYTES % (AUTO) 40.2 % (20.5-51.1); MEAN CORPUSCULAR HEMOGLOBIN 29 pg (27-31); MEAN CORPUSCULAR HGB CONC 33 g/dL (33-37); MEAN CORPUSCULAR VOLUME 87.1 fL (80-94); MONOCYTES # (AUTO) 0.3 K/uL (0.8-1.0); MONOCYTES % (AUTO) 6.1 % (1.7-9.3); NEUTROPHILS # (AUTO) 1.9 K/uL (1.8-7.7); NEUTROPHILS % (AUTO) 40.6 % (42.2-75.2); PLATELET COUNT (AUTO) 188 K/uL (140-450); RED CELL DISTRIBUTION WIDTH 16.2 % (11.6-13.7); WHITE BLOOD COUNT (AUTO) 4.7 K/uL (4.8-10.8)
[2020-05-16] MEDS: MORPHINE SULFATE 4 MG/ML SYR IVP PRN ×3 (06:50→21:06)
--- NOTE | 2020-05-16 07:10 | NUR ---
RECEIVED PT FROM PROCESS EQUIPMENT OPERATOR NURSE, NIDIA, PT IS AWAKE AND ALERT AND ON RA, ANGELI PICC LINE NOTED, WITH IVF INFUSING AT 80ML/HR, RLE DRESSING INTACT AND IN PLACE, POT OP SHOE ON BEDSIDE, PT DENIES PAIN AND NO SIGN OF DISTRESS NOTED, SIDE RAILS UP AND CALL LIGHT WITHIN REACH WILL CONTINUE TO MONITOR PT.
[2020-05-16] MEDS ORDERED: VANCOMYCIN PER PHARMACY MC PRN (08:40)
[2020-05-16] MEDS: metroNIDAZOLE 500 MG TAB PO SCH ×3 (09:05→16:07)
[2020-05-16] MEDS: DOCUSATE SODIUM 100 MG GELCAP PO SCH (09:05)
[2020-05-16] MEDS: levoFLOXacin 250 MG TAB PO SCH (09:06)
[2020-05-16] MEDS: VANCOMYCIN 750 MG in DEXTROSE 5% 250 ML IV SCH (09:17)
--- NOTE | 2020-05-16 09:17 | NUR ---
PT WAS GIVEN THE SCHEDULED AM MEDICATIONS VIA ORAL AND IVPB, TOLERATED, WILL CONTINUE TO MONITOR PT.
[2020-05-16] MEDS: INSULIN LISPRO SLIDING SCALE 100 UNITS/ML VIAL SUBQ PRN ×3 (11:17→20:03)
--- NOTE | 2020-05-16 11:18 | NUR ---
PT WAS GIVEN A PAIN MEDICATION VIA IVP, BP IS 159/98, PULSE IS 91, O2 SATURATION IS AT 100% ON RA AND RESPIRATION IS CLAUDIA 18/MIN, 6 UNITS INSULIN WAS GIVEN WELL ON THE RERE FOR BLOOD GLUCOSE OF 252, WILL CONTINUE TO MONITOR PT.
[2020-05-16] MEDS: NACL 0.9% 1,000 ML IV SCH (11:23)
[2020-05-16] MEDS: MUPIROCIN CA NASAL 2% 1GM TUBE NS SCH (12:34)
[2020-05-16] MEDS: CHLORHEXADINE GLUC 2% CLOTH TP SCH (12:35)
--- NOTE | 2020-05-16 12:35 | NUR ---
PT WAS GIVEN BACTROBAN OINTMENT VIA NASAL AND ORAL ANTIBIOTIC, WILL CONTINUE TO MONITOR PT.
--- NOTE | 2020-05-16 14:00 | NUR ---
PT IS CLEANING UP HERSELF AND INITIATED TO WIPE HERSELF WITH THE CHLORHEXIDINE WIPES.
[2020-05-16 16:00] VITALS: BP 150/86
--- NOTE | 2020-05-16 16:10 | NUR ---
PT WAS GIVEN THE SCHEDULED FLAGYL MEDICATION PO AND WAS GIVEN 2 UNITS INSULIN ON THE LEFT UA FOR BLOOD GLUCOSE OF 196, WILL CONTINUE TO MONITOR PT.
--- NOTE | 2020-05-16 19:10 | NUR ---
RECEIVED BEDSIDE REPORT FROM DAY SHIFT NURSE FOR CONTINUITY OF CARE. PT IS AWAKE AND ALERT, A&OX4. ON RA WITH BREATHING UNLABORED. PT DENIES PAIN AT THIS TIME. MED-SURG PT. PT IS AMBULATORY WITH ASSIST, NON WEIGHT BEARING ON THE RIGHT FOOT. SKIN IS WARM AND DRY. S/P RIGHT PLANTAR FOOT DEBRIDEMENT. RIGHT UPPER ARM PICC LINE IN PLACE RUNNING NS AT 80 ML PER HOUR PER ORDER. RAPID COVID NEGATIVE. FALL PRECAUTIONS IN PLACE. CONTACT PRECAUTIONS IN PLACE FOR POSITIVE MRSA NARES. PT IS STABLE AT THIS TIME. PLAN OF CARE DISCUSSED.
[2020-05-16] MEDS: INSULIN LANTUS 100 UNITS/ML 10 ML VIAL SUBQ SCH (19:59)
[2020-05-16 20:00] VITALS: BP 152/91
--- NOTE | 2020-05-16 21:06 | NUR ---
PT STATES SHE HAS PAIN IN HER RIGHT FOOT AT A SCALE OF 8/10. PT STATES THE PAIN IS ACHING IN CHARACTERISTIC. SHE WAS GIVEN MORPHINE 4 MG IVP ORDERED FOR SEVERE PAIN. BP WAS 152/91 PRIOR TO ADMINISTRATION. WILL MONITOR PAIN.
--- NOTE | 2020-05-16 22:57 | NUR ---
ROUNDED ON PT. SHE IS SITING UP IN BED, WATCHING TV ON HER CELL PHONE. PT IS STABLE AT THIS TIME. DENIES PAIN. BREATHING IS UNLABORED. FALL PRECAUTIONS IN PLACE.
--- NOTE | 2020-05-17 01:00 | NUR ---
PT IS AWAKE, WATCHING TV IN BED. PT WAS GIVEN A SANDWHICH REQUESTED. NO DISTRESS NOTED. FLUIDS ARE INFUSING ORDERED. BED IS IN THE LOWEST POSITION. BEDSIDE COMMODE NEXT TO BED. CALL LIGHT LIGHT WITHIN REACH.
[2020-05-17] MEDS: NACL 0.9% 1,000 ML IV SCH ×2 (01:43→12:04)
--- NOTE | 2020-05-17 03:00 | NUR ---
PT IS ASLEEP IN SEMI FOWLERS POSITION. NO RESPIRATORY DISTRESS NOTED. NO PAIN NOTED. FLUIDS ARE INFUSING THROUGH THE PICC LINE. WATER WAS PROVIDED. FEET ARE ELEVATED OFF THE BED WITH PILLOWS. DRESSING IS INTACT ON BOTH FEET BILATERALLY. PT IS STABLE.
[2020-05-17 04:00] VITALS: BP 136/79
--- NOTE | 2020-05-17 05:00 | NUR ---
MADE ROUNDS ON PT. SHE IS SLEEPING. NO SIGNS OF DISTRESS. PT IS NOT EASILY AWOKEN BY NOISE. CHEST RISE AND FALL SYMMETRICAL. BREATHING IS UNLABORED ON RA. FLUIDS ARE INFUSING THROUGH PICC LINE. WILL CONTINUE TO MONITOR.
[2020-05-17] MEDS: MORPHINE SULFATE 4 MG/ML SYR IVP PRN ×3 (06:17→22:06)
--- NOTE | 2020-05-17 06:17 | NUR ---
PT STATES SHE HAS PAIN IN THE RIGHT FOOT AT A SCALE OF 9/10. PT WAS GIVEN MORPHINE FOR PAIN. BP WAS 140/82 PRIOR TO ADMINISTRATION OF MEDICATION. PT TEACHING WAS PROVIDED FOR NON WEIGHT BEARING ON THE RIGHT FOOT. PT VERBALIZED UNDERSTANDING. MEDICATION EDUCATION WAS ALSO PROVIDED. WILL MONITOR PAIN.
[2020-05-17] MEDS: BLOOD GLUCOSE MONITORING 1 DEV DEV FS SCH ×4 (06:33→20:59)
--- NOTE | 2020-05-17 07:24 | NUR ---
ENDORSED PT TO DAY SHIFT NURSE FOR CONTINUITY OF CARE. PT IS STABLE AT THIS TIME. PLAN OF CARE DISCUSSED.
--- NOTE | 2020-05-17 07:59 | NUR ---
RECEIVED BEDSIDE REPORT FROM DAY NIGHT NURSE FOR CONTINUITY OF CARE. PT RESTING. EYES CLOSED. ON RA WITH BREATHING UNLABORED. NO S/S OF DISCOMFORT. PT ON BRP, NON WEIGHT BEARING ON THE RIGHT FOOT. SKIN IS WARM AND DRY. S/P RIGHT PLANTAR FOOT DEBRIDEMENT. RIGHT UPPER ARM PICC LINE INTACT RUNNING NS AT 80 ML/HR. FALL PRECAUTIONS IN PLACE. ON CONTACT PRECAUTIONS FOR + MRSA NA. PLAN OF CARE DISCUSSED.
[2020-05-17 08:00] VITALS: BP 87/55
[2020-05-17] MEDS: DOCUSATE SODIUM 100 MG GELCAP PO SCH (08:58)
[2020-05-17] MEDS: metroNIDAZOLE 500 MG TAB PO SCH ×3 (08:58→18:14)
[2020-05-17] MEDS: levoFLOXacin 250 MG TAB PO SCH (08:58)
[2020-05-17] MEDS: VANCOMYCIN 750 MG in DEXTROSE 5% 250 ML IV SCH (08:59)
--- NOTE | 2020-05-17 10:07 | NUR ---
NOTIFIED PHARMACY PT'S ELEVATED VANCO TROUGH. OK TO CONTINUE VANCO IV PER PHARMACY PROTOCOL.
--- NOTE | 2020-05-17 10:48 | NUR ---
SPOKE WITH DR. BUI PT'S POC. RENDERED S/P SURGICAL WOUND DRESSING TO RIGHT PLANTAR FOOT.
[2020-05-17] MEDS: INSULIN LISPRO SLIDING SCALE 100 UNITS/ML VIAL SUBQ PRN ×3 (11:25→20:55)
[2020-05-17 11:30] VITALS: BP 164/95
[2020-05-17] MEDS: HYDROcodone/APAP 5/325 MG 1 TAB TAB PO PRN ×2 (11:37→14:53)
--- NOTE | 2020-05-17 11:58 | NUR ---
SPOKE DEONNA FROM THE LAB (MICROBIOLOGY) TO FOLLOW UP WITH THE WOUND CULTURE FINAL RESULTS, PER DEONNA, FINAL RESULTS MIGHT BE IN TOMORROW BUT I CAN STILL RELAY TO THE ID DOCTOR THE PRELIMINARY RESULTS. CONTACTED DR. BERNARD, RELAYED THE PRELIM RESULTS OF WOUND CULTURE. PER DR. BERNARD, HE CAN NOT DISCHARGE PT TODAY, HE WILL WAIT WHEN FINAL RESULTS ARE IN. RN ASSIGNED MADE AWARE.
[2020-05-17] MEDS: MUPIROCIN CA NASAL 2% 1GM TUBE NS SCH (12:02)
[2020-05-17] MEDS: CHLORHEXADINE GLUC 2% CLOTH TP SCH (12:03)
[2020-05-17] MEDS: ONDANSETRON 4 MG/2 ML VIAL IVP PRN ×2 (13:10→18:19)
--- NOTE | 2020-05-17 13:10 | NUR ---
PT DEMONSTRATES NAUSEA AND VOMITING. PRN ZOFRAN IVP GIVEN. WILL CONTINUE TO MONITOR.
--- NOTE | 2020-05-17 13:52 | NUR ---
RECEIVED CALL FROM LAB. PT IS POSITIVE FOR STAPHYLOCOCCUS AUREUS - MRSA RIGHT FOOT WOUND FINAL RESULT. NOTIFIED ID ., DR. BERNARD, AWATING TO CALL BACK FOR NEW ORDER.
[2020-05-17 15:06] VITALS: BP 148/85
--- NOTE | 2020-05-17 19:20 | NUR ---
RECEIVED BEDSIDE REPORT FROM DAY SHIFT NURSE FOR CONTINUITY OF CARE. PT IS AWAKE AND ALERT, A&OX4. ON RA WITH BREATHING UNLABORED. PT IS AMBULATORY WITH STANDBY ASSISTANCE. NON WEIGHT BEARING ON THE RIGHT FOOT. SKIN IS WARM AND DRY. S/P RIGHT FOOT PLANTAR DEBRIDEMENT. BILATERAL ULCERS ON FEET WITH DRESSING DRY AND INTACT. RIGHT UPPER ARM PICC LINE RUNNING NS AT 80 ML PER HOUR PER ORDER. PT IS STABLE AT THIS TIME. PLAN OF CARE DISCUSSED.
--- NOTE | 2020-05-17 19:30 | NUR ---
ENDORSED PT TO CASE REVIEWER RN FOR THE CONTINUITY OF CARE. POC REVIEWED AND DISCUSSED. PT IS STABLE . NO CHANGE OF CONDITION.
[2020-05-17 20:00] VITALS: BP 137/74
[2020-05-17] MEDS: INSULIN LANTUS 100 UNITS/ML 10 ML VIAL SUBQ SCH (20:58)
--- NOTE | 2020-05-17 21:00 | NUR ---
PT WAS GIVEN WATER REQUESTED. NO PAIN OR DISTRESS NOTED. PT DENIES PAIN AT THIS TIME. COMMODE AT BEDSIDE FOR VOIDING. BED IS IN THE LOWEST POSITION. WILL CONTINUE TO MONITOR.
--- NOTE | 2020-05-17 22:06 | NUR ---
PT STATES SHE HAS PAIN AT A SCALE OF 8/10. PT STATES THE PAIN ACHING. BP WAS 140/78 PRIOR TO ADMINISTRATION OF MEDICATION. SHE WAS GIVEN MORPHINE IVP 4 MG ORDERED FOR PAIN. WILL MONITOR PAIN.
--- NOTE | 2020-05-18 | NUR ---
PT IS AWAKE AND ALERT, LAYING IN BED WATCHING TV. NO DISTRESS NOTED. PT STATES SHE HAS A TOLERABLE AMOUNT OF PAIN IN HER RIGHT FOOT. PT WAS GIVEN PUDDING AND ICE REQUESTED. NEEDS HAVE BEEN MET.
--- NOTE | 2020-05-18 02:00 | NUR ---
PT IS SLEEPING. CHEST RISE AND FALL IS SYMMETRICAL. NO DISTRESS OR PAIN NOTED. IV FLUIDS ARE PATENT AND INFUSING. DRESSING IS INTACT AND IN PLACE ON BILATERAL FEET. CALL LIGHT IS WITHIN REACH. PT IS STABLE.
[2020-05-18] MEDS: NACL 0.9% 1,000 ML IV SCH ×2 (02:18→17:17)
[2020-05-18] MEDS: MORPHINE SULFATE 4 MG/ML SYR IVP PRN ×3 (02:55→23:43)
--- NOTE | 2020-05-18 02:55 | NUR ---
PT STATED SHE HAD PAIN AT A SCALE OF 10/10. PAIN IS ACHING IN CHARACTERISTIC. PT STATES THE PAIN IS VERY SEVERE AND SHE IS VISIBLY SHAKING. SHE WAS GIVEN MORPHINE IVP FOR PAIN. BP WAS 169/98 PRIOR TO ADMINISTRATION OF MEDICATION. WILL CONTINUE TO MONITOR.
[2020-05-18] MEDS: ONDANSETRON 4 MG/2 ML VIAL IVP PRN (03:03)
--- NOTE | 2020-05-18 03:03 | NUR ---
PT STATED SHE WAS FEELING NAUSEOUS. PT WAS GIVEN ZOFRAN FOR NAUSEA IVP ORDERED. WILL MONITOR FOR NAUSEA. NO EPISODE OF VOMITING ON THIS SHIFT.
[2020-05-18 04:00] VITALS: BP 149/88
--- NOTE | 2020-05-18 05:00 | NUR ---
PT IS SLEEPING. NO N/V, SOB, OR PAIN NOTED. PT IS RESTING COMFORTABLY IN SEMI FOWLERS POSITION. BELONGINGS WITHIN REACH AT BEDSIDE. IV FLUIDS ARE INFUSING THROUGH PICC LINE. PT IS STABLE AT THIS TIME. WILL CONTINUE TO MONITOR.
[2020-05-18] MEDS: BLOOD GLUCOSE MONITORING 1 DEV DEV FS SCH ×4 (05:48→20:36)
[2020-05-18] MEDS: INSULIN LISPRO SLIDING SCALE 100 UNITS/ML VIAL SUBQ PRN ×3 (05:50→20:40)
--- NOTE | 2020-05-18 06:36 | NUR ---
PT IS AWAKE AND UP TO RESTROOM. STANDBY ASSISTANCE PROVIDED. PT IS NON WEIGHT BEARING ON THE RIGHT FOOT. PT IS STABLE AT THIS TIME. DENIES ANY PAIN OR DISCOMFORT.
--- NOTE | 2020-05-18 07:15 | NUR ---
ENDORSED PT TO DAY SHIFT NURSE FOR CONTINUITY OF CARE. PT IS AWAKE AND ALERT AT THIS TIME. PT IS STABLE. PLAN OF CARE DISCUSSED.
--- NOTE | 2020-05-18 08:01 | NUR ---
Patient awake, alert and able to verbalize needs. Breathing is easy on room air, denies pain. Patient has dressings to bilateral feet and no drainage noted. Safety co measures in place with call light, bed lowered and has no further needs.
[2020-05-18 09:02] VITALS: BP 158/72
[2020-05-18] MEDS: metroNIDAZOLE 500 MG TAB PO SCH ×3 (09:56→17:16)
[2020-05-18] MEDS: VANCOMYCIN 750 MG in DEXTROSE 5% 250 ML IV SCH (09:57)
[2020-05-18] MEDS: DOCUSATE SODIUM 100 MG GELCAP PO SCH (09:57)
[2020-05-18] MEDS: levoFLOXacin 250 MG TAB PO SCH (10:26)
[2020-05-18 16:00] VITALS: BP 164/93
[2020-05-18] MEDS: HYDROcodone/APAP 5/325 MG 1 TAB TAB PO PRN ×2 (17:17→22:42)
--- NOTE | 2020-05-18 19:05 | NUR ---
RECEIVED REPORT FROM DAY SHIFT NURSE. PT IN BED RESTING, AWAKE, AAOX4, ABLE TO MAKE NEEDS KNOWN. RESPIRATIONS EVEN AND UNLABORED TO ROOM AIR. PT NOT IN DISTRESS. ABDOMEN IS SOFT AND NON-TENDER, ACTIVE BOWEL SOUNDS NOTED. SKIN IS WARM AND DRY. PT WITH WOUND ON RIGHT FOOT S/P DEBRIDEMENT. DRESSING INTACT. PT WITH LEFT UPPER ARM PICC LINE IN PLACE, PATENT AND INTACT. IVF INFUSING WELL. PT DENIES ANY PAIN OR DISCOMFORT AT THIS TIME, NO REQUESTS MADE. POC DISCUSSED, PT VERBALIZED UNDERSTANDING. SAFETY MEASURES IN PLACE, CALL LIGHT WITHIN REACH. WILL CONTINUE TO MONITOR. Addendum: 05/18/20 at 2103 by Pranav Kerns RN PICC LINE IS ON THE RIGHT UPPER ARM. PT ALSO WITH BILATERAL DIABETIC FOOT.
[2020-05-18 20:00] VITALS: BP 133/88
[2020-05-18] MEDS: INSULIN LANTUS 100 UNITS/ML 10 ML VIAL SUBQ SCH (20:39)
--- NOTE | 2020-05-18 20:40 | NUR ---
VS STABLE. BLOOD SUGAR 175, SCHEDULED INSULIN AND COVERAGE GIVEN. SCHEDULED MEDS GIVEN WELL. PT NOT IN DISTRESS. NO REQUESTS MADE AT THIS TIME. CALL LIGHT WITHIN REACH. WILL CONTINUE TO MONITOR.
--- NOTE | 2020-05-18 22:05 | NUR ---
ROUNDS MADE. PT IN BED, WATCHING ON HER PHONE. NO S/SX OF DISTRESS NOTED. PT DENIES ANY PAIN OR DISCOMFORT WELL. WILL CONTINUE TO MONITOR.
--- NOTE | 2020-05-18 22:43 | NUR ---
PT COMPLAINING OF FOOT PAIN 6-09/12. PRN PAIN MEDICATION GIVEN ORDERED. WILL CONTINUE TO MONITOR.
--- NOTE | 2020-05-18 23:44 | NUR ---
PT VERBALIZED 8-9/10 FOOT PAIN AND THAT NORCO DID NOT HELP HER. PRN MORPHINE GIVEN ORDERED. WILL CONTINUE TO MONITOR.
--- NOTE | 2020-05-19 02:05 | NUR ---
ASLEEP. VISIBLE CHEST RISE AND FALL NOTED. NO S/SX OF DISCOMFORT NOTED. PT KEPT SAFE AND COMFORTABLE. WILL CONTINUE TO MONITOR.
[2020-05-19] MEDS: NACL 0.9% 1,000 ML IV SCH ×2 (03:10→06:43)
[2020-05-19 04:00] VITALS: BP 153/92
--- NOTE | 2020-05-19 04:24 | NUR ---
VS STABLE. PT RESTING IN BED. PT DENIES ANY PAIN OR DISCOMFORT AT THIS TIME. NO REQUESTS MADE. PT KEPT SAFE AND COMFORTABLE. WILL CONTINUE TO MONITOR.
[2020-05-19] MEDS: ONDANSETRON 4 MG/2 ML VIAL IVP PRN ×2 (05:29→13:35)
--- NOTE | 2020-05-19 05:29 | NUR ---
PT COMPLAINING OF NAUSEA, PRN ZOFRAN GIVEN. WILL CONTINUE TO MONITOR.
[2020-05-19] MEDS: BLOOD GLUCOSE MONITORING 1 DEV DEV FS SCH ×4 (06:31→21:26)
[2020-05-19] MEDS: INSULIN LISPRO SLIDING SCALE 100 UNITS/ML VIAL SUBQ PRN ×3 (06:33→21:18)
--- NOTE | 2020-05-19 06:34 | NUR ---
BLOOD SUGAR 184. INSULIN COVERAGE GIVEN ORDERED. PT DENIES ANY PAIN OR DISCOMFORT. WILL CONTINUE TO MONITOR.
[2020-05-19 06:50] LABS: ANION GAP 12.5 (8-16); CARBON DIOXIDE 20.4 mmol/L (21-32); CREATININE 2.3 mg/dL (0.6-1.3); POTASSIUM 4.9 mmol/L (3.5-5.1)
--- NOTE | 2020-05-19 07:24 | NUR ---
ENDORSED TO DAY SHIFT NURSE FOR CONTINUITY OF CARE
--- NOTE | 2020-05-19 07:25 | NUR ---
RECEIVED PATIENT FROM NIGHT NURSE. PATIENT IN BED AWAKE AND ALERT. RESP EVEN AND UNLABORED ON ROOM AIR. DENIED OF PAIN AT THIS TIME. ANGELI PICC INFUSING NS 80ML/HR. BILATERAL LOWER FEET WRAPPED NOTED. S/P RIGHT PLANTAR DEBRIDEMENT. PLAN OF CARE DISCUSSED, PATIENT VERBALIZED UNDERSTANDING. HOB ELEVATED. SAFETY MEASURES IN PLACE. CONTACT ISO OBSERVED FOR MRSA. CALL LIGHT WITHIN REACH. WILL CONTINUE TO MONITOR.
[2020-05-19 08:00] VITALS: BP 154/88
[2020-05-19] MEDS: DOCUSATE SODIUM 100 MG GELCAP PO SCH (08:32)
[2020-05-19] MEDS: levoFLOXacin 250 MG TAB PO SCH (08:32)
[2020-05-19] MEDS: metroNIDAZOLE 500 MG TAB PO SCH ×3 (08:32→16:19)
[2020-05-19] MEDS: VANCOMYCIN 750 MG in DEXTROSE 5% 250 ML IV SCH (08:36)
--- NOTE | 2020-05-19 08:50 | NUR ---
PATIENT IN BED AWAKE AND ALERT EATING BREAKFAST. MORNING ROUTINE MEDICATIONS GIVEN. PATIENT TOLERATING WELL. LOWER BILATERAL FEET WRAPPED IN [place]ERLIX FROM MORNING DRESSING CHANGE WITH TEXTILE DYER. ANGELI PICC INFUSING WELL. PATIENT ABLE TO AMBULATE TO THE BATHROOM. ENCOURAGED TO USE CALL LIGHT FOR ASSIST NEEDED. PATIENT VERBALIZED UNDERSTANDING. CALL LIGHT WITHIN REACH. WILL CONTINUE TO [facility]
[2020-05-19] MEDS ORDERED: ZOLPIDEM 5 MG TAB PO PRN (09:00)
[2020-05-19] MEDS ORDERED: HYDROcodone/APAP 5/325 MG 1 TAB TAB PO PRN (09:00)
[2020-05-19] MEDS: MORPHINE SULFATE 4 MG/ML SYR IVP PRN ×2 (10:03→20:29)
--- NOTE | 2020-05-19 10:16 | NUR ---
MORPHINE GIVEN FOR PAIN TO RIGHT FOOT. PATIENT IN BED AWAKE AND ALERT. RESP EVEN AND UNLABORED ON ROOM AIR. CALL LIGHT WITHIN REACH. WILL CONTINUE TO MONITOR.
--- NOTE | 2020-05-19 12:03 | NUR ---
PAIN STATED RELIEF. PATIENT IN BED RESTING. BLOOD SUGAR 285, INSULIN COVERAGE PER SLIDING SCALE. NO NOTED ACUTE S/S DISTRESS AT THIS TIME. CALL LIGHT WITHIN REACH. WILL CONTINUE TO MONITOR.
--- NOTE | 2020-05-19 13:43 | NUR ---
ZOFRAN GIVEN FOR C/O FEELING NAUSEOUS. NO REPORT OF VOMITING. PATIENT IN BED RESTING. PAIN IS TOLERABLE AT THIS TIME. CALL LIGHT WITHIN REACH. WILL CONTINUE TO MONITOR.
[2020-05-19 16:00] VITALS: BP 142/84
--- NOTE | 2020-05-19 16:25 | NUR ---
PATIENT IN BED SLEEPING, EASILY AROUSED TO AWAKE AND ALERT. DENIED OF PAIN OR FEELING NAUSEOUS. BLOOD SUGAR 92, NO INSULIN COVERAGE PER SLIDING SCALE. CALL LIGHT WITHIN REACH. WILL CONTINUE TO MONITOR.
--- NOTE | 2020-05-19 19:24 | NUR ---
PATIENT ENDORSED TO NIGHT NURSE. PATIENT AMBULATED TO THE BATHROOM. PATIENT ENCOURAGED TO NWB TO RIGHT FOOT DURING AMBULATING. PATIENT VERBALIZED UNDERSTANDING. PATIENT IN STABLE CONDITION.
--- NOTE | 2020-05-19 19:48 | NUR ---
PATIENT RECEIVED IN HER ROOM USING RESTROOM. RN'S GAVE PRIVACY TO THE PATIENT SEEMS ALERT AND ORIENTED X 3, COHERENT, ABLE TO SPEAK HER NEEDS, DENIES PAIN, CONTINUE TO MONITOR.
[2020-05-19 20:00] VITALS: BP 155/90
--- NOTE | 2020-05-19 20:57 | NUR ---
PATIENT C/O SHARP PAIN R LOWER FOOT 11/13. MEDICATED WITH MORPHINE 4 MG IVP ORDERED. MONITOR PAIN LEVEL AFTER 30 MINUTES, REPOSITION PATIENT FOR COMFORT.
--- NOTE | 2020-05-19 21:00 | NUR ---
PATIENT MEDS WERE ADMINISTERED TOLERATED WELL BY THE PATIENT
[2020-05-19] MEDS: INSULIN LANTUS 100 UNITS/ML 10 ML VIAL SUBQ SCH (21:20)
[2020-05-19 22:00] VITALS: BP 142/84
--- NOTE | 2020-05-19 23:50 | NUR ---
RN CHANGED THE NORMAL SALINE BAG HYDRATION, PATIENT WAS AWAKED IN BED, DENIES ANY PAIN
--- NOTE | 2020-05-20 00:10 | NUR ---
RN MADE HIS MIDNIGHT ROUND, PATIENT WAS CALMLY ASLEEP ON BED.
[2020-05-20] MEDS: NACL 0.9% 1,000 ML IV SCH (04:04)
[2020-05-20] MEDS: MORPHINE SULFATE 4 MG/ML SYR IVP PRN (04:26)
[2020-05-20] MEDS: BLOOD GLUCOSE MONITORING 1 DEV DEV FS SCH (07:05)
--- NOTE | 2020-05-20 07:45 | NUR ---
RECEIVED REPORT FROM DISCOUNT CLERK RN FOR CONTINUITY OF CARE. PATIENT RESTING IN BED, DENIES PAIN AT THIS TIME. MORPHINE WAS GIVEN AN HOUR AGO, PER DISCOUNT CLERK RN. RESPIRATORY EVEN UNLABORED ON RA. BILATERAL FOOT COVERED WITH DRESSING. AMBULATORY. NWB ON RIGHT FOOT. NO ACUTE DISTRESS NOTED AT THIS TIME. SAFETY MEASURES IN PLACE, WILL CONTINUE TO MONITOR.
[2020-05-20 08:00] VITALS: BP 173/99
[2020-05-20 08:40] LABS: ANION GAP 9.5 (8-16); CARBON DIOXIDE 21.4 mmol/L (21-32); POTASSIUM 4.9 mmol/L (3.5-5.1)
[2020-05-20] MEDS ORDERED: VANCOMYCIN 750 MG in DEXTROSE 5% 250 ML IV SCH (09:00)
[2020-05-20] MEDS: DOCUSATE SODIUM 100 MG GELCAP PO SCH (09:28)
[2020-05-20] MEDS: levoFLOXacin 250 MG TAB PO SCH (09:28)
[2020-05-20] MEDS: metroNIDAZOLE 500 MG TAB PO SCH (09:28)
[2020-05-20 09:58] VITALS: BP 173/99
--- NOTE | 2020-05-20 09:58 | NUR ---
NEW ORDER OF 0.1MG CLONIDINE GIVEN FOR BP 173/99. EDUCATION PROVIDED. SAFETY MEASURES IN PLACE, WILL CONTINUE TO MONITOR.
[2020-05-20] MEDS ORDERED: CLONIDINE HYDROCHLORIDE 0.1 MG TAB PO SCH (10:00)
[2020-05-20] MEDS ORDERED: GLUC-805 FS (10:07)
[2020-05-20] MEDS ORDERED: LEVO250T71 PO (10:07)
[2020-05-20] MEDS ORDERED: HUMSLIDE SUBQ (10:07)
[2020-05-20] MEDS ORDERED: ACET-1182 PO (10:07)
[2020-05-20] MEDS ORDERED: [UNRECOGNIZED DRUG - CODE] IV (10:07)
[2020-05-20] MEDS ORDERED: LANTUS SUBQ (10:07)
[2020-05-20] MEDS ORDERED: ACET-9525 PO (10:07)
[2020-05-20] MEDS ORDERED: Vancomycin Per Pharmacy MC (10:07)
[2020-05-20] MEDS ORDERED: DOCU-299 PO (10:07)
[2020-05-20] MEDS ORDERED: METR500T1 PO (10:07)
[2020-05-20] MEDS ORDERED: HEPA500056 SUBQ (10:07)
--- NOTE | 2020-05-20 10:25 | NUR ---
REPORT GIVEN TO DAILY/BERNARDO OF [facility].
--- NOTE | 2020-05-20 10:45 | NUR ---
PICC LINE DRESSING CHANGED, WOUND PHOTOS TAKEN.
--- NOTE | 2020-05-20 10:58 | NUR ---
DISCHARGE PAPER SIGNED, DISCHARGE INSTRUCTIONS PROVIDED/FOLLOW UP. DISCHARGE PROTOCOL FOLLOWED. PT IN STABLE CONDITION.
--- NOTE | 2020-05-20 11:02 | NUR ---
PATIENT WAS PICKED UP BY THE TRANSPORT AND TRANSFER TO [facility]. PATIENT IN STABLE CONDITION.
== END 2020-05-20 11:03 | DRG 349 ==
LOC: MED 16:59 → MTU 20:19
PROVIDERS: ADMIT Hospitalist; ATTEND Hospitalist
PROC: 02HV33Z Insertion of Infusion Device into Superior Vena Cava, Percutaneous Approach (ICD-10-PCS; 2020-05-11)
PROC: B548ZZA Ultrasonography of Superior Vena Cava, Guidance (ICD-10-PCS; 2020-05-11)
PROC: 0JBQ0ZZ Excision of Right Foot Subcutaneous Tissue and Fascia, Open Approach (ICD-10-PCS; principal; 2020-05-13 12:00)
DX: T87.81 Dehiscence of amputation stump (principal); E11.69 Type 2 diabetes mellitus with other specified complication; L97.529 Non-pressure chronic ulcer of other part of left foot with unspecified severity; E11.42 Type 2 diabetes mellitus with diabetic polyneuropathy; E11.621 Type 2 diabetes mellitus with foot ulcer; L97.519 Non-pressure chronic ulcer of other part of right foot with unspecified severity; B95.62 Methicillin resistant Staphylococcus aureus infection as the cause of diseases classified elsewhere; E11.51 Type 2 diabetes mellitus with diabetic peripheral angiopathy without gangrene; J45.909 Unspecified asthma, uncomplicated; Z20.822 Contact with and (suspected) exposure to COVID-19; E43 Unspecified severe protein-calorie malnutrition; N18.30 Chronic kidney disease, stage 3 unspecified; I50.9 Heart failure, unspecified; E11.22 Type 2 diabetes mellitus with diabetic chronic kidney disease; Y83.8 Other surgical procedures as the cause of abnormal reaction of the patient, or of later complication, without mention of misadventure at the time of the procedure; Z79.4 Long term (current) use of insulin; L03.115 Cellulitis of right lower limb; M86.8X7 Other osteomyelitis, ankle and foot; L02.611 Cutaneous abscess of right foot; B95.5 Unspecified streptococcus as the cause of diseases classified elsewhere; B95.2 Enterococcus as the cause of diseases classified elsewhere; Z87.891 Personal history of nicotine dependence; Z88.0 Allergy status to penicillin; Z89.422 Acquired absence of other left toe(s); Z90.49 Acquired absence of other specified parts of digestive tract; Z88.1 Allergy status to other antibiotic agents; Z68.23 Body mass index [BMI] 23.0-23.9, adult
CPT/HCPCS: 36415; 71045; 80048; 80053; 80202; 81001; 81025; 82948; 83036; 83605; 83735; 83880; 84484; 85025; 86140; 87040; 87070; 87075; 87081; 87086; 87186; 87205; 93005; 97110; 97116; 99285; J1100; J1644; J1815; J1956; J2001; J2270; J2405; J2704; J2765; J3010; J3370; J3475; J3490; J7030; J7060; Q0162

== ENCOUNTER 2020-05-20 22:36 | Emergency (ER) | payer OTHER, SELFPAY ==
[~2020-05-20] VITALS: Ht 175.3 cm; Wt 72.6 kg
[~2020-05-20 22:36] MED LIST changes: +ACET-1182 PO; +ACET-9525 PO; +DOCU-299 PO; +GLUC-805 FS; +HEPA500056 SUBQ; +HUMSLIDE SUBQ; +LANTUS SUBQ; +LEVO250T71 PO; +METR500T1 PO; +Vancomycin Per Pharmacy MC; +[UNRECOGNIZED DRUG - CODE] IV
[2020-05-20 22:41] VITALS: BP 159/84
--- NOTE | 2020-05-20 22:41 | NUR ---
TO BED VIA WHEELCHAIR
--- NOTE | 2020-05-20 22:50 | NUR ---
RECEIVED IN BED 4 VIA W/C WITH C/O RIGHT FOOT PAIN AND "I NEED IV ANTIBIOTICS". PT WAS DISCHARGED FROM HERE TODAY, ADMITTED TO [facility] FOR [facility]. WAS ADMITTED FOR 3 HOURS AND LEFT AMA. PT STATES, "THEY WERE TAKING TOO LONG AND THE FOOD WAS BAD". RIGHT FOOT IN CAST BOOT, PT UNABLE TO BARE WEIGHT PMH : DM, CHF, HTN, RIGHT GT TOE AMPUTATION ALLERGY : PCN
--- NOTE | 2020-05-20 23:10 | NUR ---
DR. SANCHEZ AT BEDSIDE FOR EXAM
[2020-05-20] MEDS ORDERED: VANCOMYCIN 1,000 MG in DEXTROSE 5% 250 ML IV ONE (23:20)
[2020-05-20] MEDS ORDERED: levoFLOXacin 250 MG TAB PO ONE (23:20)
[2020-05-20] MEDS ORDERED: metroNIDAZOLE 250 MG TAB PO ONE (23:20)
[2020-05-20] MEDS ORDERED: VANCOMYCIN 1,000 MG VIAL ONE (23:23)
[2020-05-21 00:50] VITALS: BP 148/76
--- NOTE | 2020-05-21 00:50 | NUR ---
Patient discharged with v/s stable. Written and verbal after care instructions given and explained. Patient verbalized understanding. Wheel Chair Assisted with to home. All questions addressed prior to discharge. Advised to follow up with PMD. PT STATES SHE WILL FOLLOW UP WITH HOME HEALTH
== END 2020-05-21 00:50 | disposition home or self-care (01) ==
LOC: MED 22:36
DX: M86.9 Osteomyelitis, unspecified (principal); I11.0 Hypertensive heart disease with heart failure; I50.9 Heart failure, unspecified; E11.9 Type 2 diabetes mellitus without complications; Z79.2 Long term (current) use of antibiotics; Z98.890 Other specified postprocedural states; Z79.899 Other long term (current) drug therapy; Z79.4 Long term (current) use of insulin; Z88.0 Allergy status to penicillin; Z88.1 Allergy status to other antibiotic agents; Z88.8 Allergy status to other drugs, medicaments and biological substances
CPT/HCPCS: 96365; 99284; J1956; J3370